=== PATIENT | female | born 1935 | race Caucasian/White ===

== ENCOUNTER 2016-07-07 18:54 | Inpatient (IN) | payer MEDICARE, OTHER ==
[~2016-07-07] VITALS: Ht 157.5 cm; Wt 74.0 kg
[~2016-07-07 18:54] MED LIST: /ADVA50050 IN; /TIOT18INH INH; ACET65TA OR; ALBU17IN INH; ALBU83IN IN; ALBUPOW25 INH; ALEVE PO; ASPI1TAB PO; ASPI325T PO; ASPI81TA85 PO; BISA10EN PR; CEFT500T OR; CEFT500T3 PO; DOCU10CA PO; DOCU10ELUD PO; DRIS50002 PO; Deltasone PO; Drisdol PO; Duoneb INH; FERR325T PO; FURO40TA2 PO; HEPA10004 SQ; HYDR25TA6 OR; HYDR25TA6 PO; Heparin SQ; IPRASOL4 INH; KETO2CR EXT; LASI20TA OR; LASI40TA OR; LASI40TA PO; LEVA500T OR; LEVA750T PO; LEVO100T7 OR; LEVO50TA2 OR; LEVO75TA4 PO; LISI10TA4 OR; MIRA3350 PO; MIRALEX PO; NICO2GUM8 PO; NICO7DIS23 TD; NORCO ANEXSIA PO; NORV5TAB OR; OMEP40CA2 PO; OXYGEN; PERC5TAB6 PO; PRED10TA PO; PRED10TA2 OR; PRED20TA OR; PRED20TA PO; PRED5TAB OR; PRIL40CA OR; PRIL40CA PO; PRIN10TA OR; PRIN10TA PO; SYMB; SYMB16INH INH; SYMB80AE IN; SYNT50TA OR; SYNT50TA PO; TESS100C OR; TYLE325T5 PO; VENTAER IN; VENTAER INH; VITA-121 PO; VITA-130 PO; VITAMIN D2 PO; XANA0.25 OR; ZEST10TA OR; ZITH250T OR; ZOLO100T OR; ZOLO100T PO; [UNRECOGNIZED DRUG - OTHER]; [UNRECOGNIZED DRUG - OTHER] INH; [UNRECOGNIZED DRUG - OTHER] OR; prednison; prednisone OR; symbicort INH
[2016-07-07] MEDS ORDERED: FUROSEMIDE 40 MG/4 ML VIAL (J1940) As Ordered ONE (19:19)
[2016-07-07] MEDS ORDERED: methylPREDNISolone INJ 125 MG/2 ML VIAL (J2930) As Ordered ONE (19:19)
[2016-07-07] MEDS ORDERED: IPRATROPIUM 0.5MG/ALBUTEROL 2.5MG INH SOL UD 3ML (DUONEB)(J7620) As Ordered ONE (19:22)
[2016-07-07 19:35] LABS: ABG BASE EXCESS 16.9 (-2.0-2.0); ABG DEVICE NASAL CANN; ABG HCO3 44.6 MEQ/L (22.0-26.0); ABG PARTIAL PRESSURE CO2 78.6 mmHg (35.0-45.0); ABG PARTIAL PRESSURE O2 64.4 mmHg (75.0-100.0); ABG STANDARD HCO3 40.6 MEQ/L (22.0-26.0); ABG pH (ARTERIAL) 7.372 UNITS (7.350-7.450)
[2016-07-07 19:38] LABS: ADD MORPHOLOGY? YES; BASO % 0.3 % (0.0-1.0); EOS # 0.4 K/mm3 (0.0-0.50); EOS % 5.6 % (0.0-3.0); LARGE UNSTAINED CELL # 0.2 K/mm3 (0.0-0.4); LYMPH # 1.2 K/mm3 (1.5-4.5); LYMPH % 15.1 % (24.0-44.0); MEAN CORPUSCULAR HEMOGLOBIN 19.9 pg (27.0-33.0); MEAN CORPUSCULAR HGB CONC 27.5 g/dl (32.0-36.5); MEAN CORPUSCULAR VOLUME 72.3 fl (80.0-96.0); MONO # 0.3 K/mm3 (0.0-0.8); MONO % 4.4 % (0.0-5.0); NEUTROPHILS # 5.7 K/mm3 (1.8-7.7); NEUTROPHILS % 72.7 % (36.0-66.0); PLATELET COUNT, AUTOMATED 217 k/mm3 (150-450); RED CELL DISTRIBUTION WIDTH 16.5 % (11.5-14.5); WHITE BLOOD COUNT 7.9 K/mm3 (4.0-10.0)
[2016-07-07] MEDS ORDERED: cefTRIAXone SOD 1 GM VIAL (J0696) As Ordered ONE (19:48)
[2016-07-07] MEDS ORDERED: MOM 30ML SUSPENSION UDC PO PRN (20:00)
[2016-07-07] MEDS: IPRATROPIUM 0.02% SOLN 0.5MG/2.5 ML NEB INH SCH ×2 (20:00→23:21)
[2016-07-07] MEDS ORDERED: IPRATROPIUM 0.02% SOLN 0.5MG/2.5 ML NEB INH PRN (20:00)
[2016-07-07] MEDS ORDERED: LEVALBUTEROL 1.25 MG/0.5 ML CONCENTRATE NEB INH PRN (20:00)
[2016-07-07] MEDS ORDERED: MIRALAX *UNIT DOSE* 17GM PACKET PO PRN (20:00)
[2016-07-07] MEDS: LEVALBUTEROL 1.25 MG/0.5 ML CONCENTRATE NEB INH SCH ×2 (20:00→23:21)
[2016-07-07] MEDS ORDERED: methylPREDNISolone INJ 125 MG/2 ML VIAL (J2930) IV ONE (20:00)
[2016-07-07 20:05] LABS: ANION GAP 6 MEQ/L (8-16); BLOOD UREA NITROGEN 21 MG/DL (7-18); CALCIUM LEVEL 8.2 MG/DL (8.8-10.2); CARBON DIOXIDE LEVEL 43 MEQ/L (21-32); CHLORIDE LEVEL 88 MEQ/L (98-107); CREATININE FOR GFR 0.74 MG/DL (0.55-1.02); GLOMERULAR FILTRATION RATE > 60.0 (>32); GLUCOSE, FASTING 106 MG/DL (83-110); POTASSIUM SERUM 4.1 MEQ/L (3.5-5.1); SODIUM LEVEL 137 MEQ/L (136-145)
[2016-07-07 20:07] LABS: ANISOCYTOSIS 1+; HYPOCHROMASIA 3+; MICROCYTOSIS 2+
[2016-07-07 20:30] LABS: FERRITIN 5 NG/ML (8-252); PERCENT SATURATION 4.3 % (13.2-37.4); TOTAL IRON BINDING CAPACITY 530 UG/DL (250-450)
[2016-07-07] MEDS ORDERED: AZITHROMYCIN INJ 500MG VIAL (J0456) As Ordered ONE (20:36)
[2016-07-07 20:51] LABS: RETIC HEMOGLOBIN CONTENT CHr 20.3 PG (24-36); RETICULOCYTE ABSOLUTE ADVIA212 58 x10(9)/L (17-77)
[2016-07-07] MEDS: DOCUSATE SODIUM 100 MG CAP PO SCH (21:00)
[2016-07-07] MEDS: SYMBICORT 160/4.5MCG INHALER 6GM INH SCH (21:00)
--- NOTE | 2016-07-07 21:12 | EDDOCDS ---
Physician Documentation [facility] Name: Pia Pinzon Age: 80 yrs Sex: Female : 1935 Arrival Date: 07/07/2016 Time: 18:54 Bed 4 Private MD: Michael Galan M.D. Disposition: 07/07/16 19:45 Hospitalization ordered by Michael Galan for Inpatient Admission. Preliminary diagnosis is Pneumonia, unspecified organism. - Bed requested for M ICU. - Status is Inpatient Admission. ttb - Condition is Stable. - Problem is new. - Symptoms are unchanged. Historical: - Allergies: bupropion HCl; KEITH Inhibitors; - Home Meds: 1. furosemide 40 mg Oral tab 1 tab once daily (Last dose: 07/07/2016 09:00) 2. omeprazole 40 mg Oral cpDR 1 cap once daily (Last dose: 07/07/2016 09:00) 3. Oxygen 3 Litres daily 4. levothyroxine 75 mcg Oral tab 1 tab once daily (Last dose: 07/07/2016 09:00) 5. prednisone 10 mg Oral tab once daily (Last dose: 07/07/2016 09:00) 6. ipratropium-albuterol 0.5 mg-3 mg(2.5 mg base)/3 mL Inhl nebu 3 mL 4 times per day (Last dose: 07/07/2016 19:00) 7. Symbicort inhalation 2 puffs 2 times per day 8. Vitamin D Oral 97997 unit weekly - PMHx: COPD; Hypertension; Hypothyroidism; - Family history: Not pertinent. - Social history: Smoking status: Patient uses tobacco products, current every day smoker. No barriers to communication noted, The patient speaks fluent Uruguayan, Speaks appropriately for age. - : The pt / caregiver states he / she is not on anticoagulants. Home medication list is obtained from the patient. - Exposure Risk Screening:: None identified. - Code Status:: pt states DNR : although does not have it in writing. . - Advance directive:: Yes. Vital Signs: 07/07 19:08 BP 145 / 69; Pulse 104; Resp 32; Temp 98.2; Pulse Ox 94% on 4 lpm NC; Weight 65.77 kg / ttb 145 lbs (R); Height 5 ft. 2 in. (157.48 cm); Pain 0/10; 19:37 BP 143 / 61 (auto/); ttb 19:38 Pulse 90 MON; Pulse Ox 100% ; ttb 19:59 BP 130 / 60 (auto/); ttb 20:00 Pulse 96 MON; Pulse Ox 87% ; ttb 20:12 Pulse 98 MON; Resp 32; Temp 97.7; Pulse Ox 88% on 4 lpm NC; Pain 2/10; ttb 20:20 Pulse 110 MON; ttb 20:30 Pulse 100 MON; Pulse Ox 93% ; ttb 20:45 Pulse 96 MON; Pulse Ox 90% ; ttb 21:00 Pulse 102 MON; Pulse Ox 90% ; ttb 21:06 Pulse 96 MON; Resp 30; Temp 97.7(O); Pulse Ox 90% on 4 lpm NC; Pain 0/10; ttb 21:06 BP 121 / 56; ttb 19:08 Body Mass Index 26.52 (65.77 kg, 157.48 cm) ttb MDM: 19:06 Furosemide 80 mg IVP once ordered. ke 19:06 Solu-MEDROL 125 mg IVP once ordered. ke 19:06 -Blood Culture (Adults Only), peripheral from different site, or from device/port/PICC ke etc. if present ordered. 19:06 Database Marketing Analyst/Pulse Ox/q 15 min VS ordered. ke 19:06 IV Saline Lock ordered. ke 19:06 Oxygen at 4L/Min NC or Home dosage ordered. ke 19:06 Rhythm Strip to chart ordered. ke 19:06 Albuterol-Ipratropium 1 neb Nebulizer every 20 minutes x3 ordered. ke 19:06 Call Respiratory ordered. ke 19:08 -Arterial Blood Gas Ordered. EDMS 19:08 B-Type Natiuretic Peptide Ordered. EDMS 19:08 Basic Metabolic Profile Ordered. EDMS 19:08 CBC with Diff Ordered. EDMS 19:08 Cardiac Injury Profile Ordered. EDMS 19:08 Troponin Ordered. EDMS 19:08 -Blood Culture Ordered. EDMS 19:08 Chest, 1 View Ordered. EDMS 19:08 ECG WITH READING ER PHYS+CARDIAG ordered. EDMS 19:08 Call Respiratory complete. jmb 19:12 Lactic Acid (Oro tube on ice) Ordered. EDMS 19:15 -Blood Culture (Adults Only), peripheral from different site, or from device/port/PICC jlm etc. if present complete. 19:15 BLOOD CULTURES Ordered. EDMS 19:39 RBC MORPH PROF NO CHARGE Ordered. EDMS 19:41 cefTRIAXone 1 grams IVPB once over 30 mins; dilute in 50mL of NS or D5W ordered. ke 19:41 azithromycin 500 mg IVPB once over 1 hrs; dilute in 250mL of D5W or NS ordered. ke 19:44 BED REQUEST+ADM ordered. EDMS 19:48 LEGIONELLA ANTIGEN URINE Ordered. EDMS 19:48 URINE STREP PNEUMONIAE ANTIGEN Ordered. EDMS 19:48 CBC WITH DIFFERENTIAL Ordered. EDMS 19:49 BASIC METABOLIC PROFILE Ordered. EDMS 19:49 INFLUENZA A&B RAPID ANTIGEN Ordered. EDMS 19:49 SPUTUM CULTURE AND GRAM STAIN Ordered. EDMS 19:49 PHYSICAL THERAPY EVAL & TREAT ordered. EDMS 19:50 Admission / Observation Status ordered. EDMS 19:50 Admission / Observation Status ordered. EDMS 19:51 ARTERIAL BLOOD GAS Ordered. EDMS 19:53 RESPIRATORY PANEL Ordered. EDMS 19:53 MRSA SCREEN Ordered. EDMS 19:55 COPD DIET ordered. EDMS 19:56 CARDIAC MARKER PANEL Ordered. EDMS 20:32 Financial registration complete. [id number] 20:33 [facility] Payment Agreement was scanned into [employer] and attached to record. [email or web address] 21:05 CARDIAC MARKER PANEL Ordered. EDMS Administered Medications: 19:25 Drug: Furosemide 80 mg [furosemide 10 mg/mL injection solution (8 mL)] Route: IVP; tm5 Site: left antecubital; 20:00 Follow up: Response: No Adverse Reaction ttb 19:25 Drug: Solu-MEDROL 125 mg [Solu-Medrol 500 mg intravenous solution (125 mg)] Route: IVP; tm5 Site: left antecubital; 20:00 Follow up: Response: No Adverse Reaction ttb 19:30 Drug: Albuterol-Ipratropium 1 neb [ipratropium-albuterol 0.5 mg-3 mg(2.5 mg base)/3 mL jc3 nebulization soln (1 neb)] Route: Nebulizer; 19:38 Drug: Albuterol-Ipratropium 1 neb [ipratropium-albuterol 0.5 mg-3 mg(2.5 mg base)/3 mL jc3 nebulization soln (1 neb)] Route: Nebulizer; 19:46 Drug: Albuterol-Ipratropium 1 neb [ipratropium-albuterol 0.5 mg-3 mg(2.5 mg base)/3 mL jc3 nebulization soln (1 neb)] Route: Nebulizer; 20:00 Drug: cefTRIAXone 1 grams [ceftriaxone 1 gram solution for injection] Route: IVPB; tm5 Infused Over: 30 mins; Site: left antecubital; 20:44 Follow up: Response: No Adverse Reaction; IV Status: Completed infusion ttb 20:44 Drug: NS 0.9% 250 ml, azithromycin 500 mg Route: IVPB; Infused Over: 1 hrs; Site: left ttb antecubital; Delivery: Pump; 21:11 Follow up: IV Status: Infusion continued upon admit ttb Signatures: Dispatcher [employer] EDGeovany Lisa, SURVEY MANAGER SURVEY MANAGER Vale Gonzalez RN RN [id number] Arcelia Barnard RN RN ttb Geronimo Boyle,RN RN Eda Watson, Varnishing Machine Operator Unit [facility] Tracey Harrison, Reg Reg ks16 Boubacar Thomas jc3 Tabitha Lopez RN tm5 The chart was reviewed and I authenticate all verbal orders and agree with the evaluation and treatment provided.Corrections: (The following items were deleted from the chart) 20:07 19:56 LACTIC ACID LEVEL, LACTATE ordered. EDMS EDMS 20:18 19:56 LACTIC ACID LEVEL, LACTATE ordered. EDMS EDMS 20:20 19:58 IRON (FE) ordered. EDMS EDMS 20:20 19:59 TOTAL IRON BINDING CAPACIT ordered. EDMS EDMS 20:20 19:59 RETICULOCYTE COUNT ordered. EDMS EDMS 20:21 19:59 FERRITIN ordered. EDMS EDMS 21:03 19:56 CARDIAC MARKER PANEL ordered. EDMS EDMS Attachments: 20:33 [facility] [place] [email or web address] MTDD
--- NOTE | 2016-07-07 21:12 | EDDOCDS ---
Nurse's Notes [facility] Name: Pia Pinzon Age: 80 yrs Sex: Female : 1935 Arrival Date: 07/07/2016 Time: 18:54 Bed 4 Private MD: Michael Galan M.D. Diagnosis: Pneumonia, unspecified organism Presentation: 07/07 18:58 Presenting complaint: Presenting complaint: EMS states: SOB since this evening. ttb Improved in route per EMS. Pt labored upon entering ER. 19:04 Adult Sepsis Screening: The patient does not have new or worsening altered mentation. ttb Patient has a respiratory rate of greater than or equal to 22 (1 point). Systolic blood pressure is greater than 100. Patient has a qSOFA score of 1- Negative Sepsis Screen. Suicide/Homicide risk assessment- the patient denies having any suicidal and/or homicidal ideations and does not present with any other emotional, behavioral or mental health complaints. Status: Patient is not a car servicer or dependent. Transition of care: patient was not received from another setting of care. 19:04 Acuity: DIANA Level 2 ttb 19:04 Method Of Arrival: Ambulance ttb Triage Assessment: 19:09 General: Appears distressed, ill, well nourished, Behavior is anxious, appropriate for ttb age, uncooperative. Pain: Denies pain. Neurological: Level of Consciousness is awake, alert. Cardiovascular: Rhythm is irregular Chest pain is denied. Respiratory: Onset: The symptoms/episode began/occurred gradually, Airway is patent Respiratory effort is even, labored, shallow, Respiratory pattern is regular, tachypnea Reports shortness of breath at rest on exertion since this evening the patient has moderate shortness of breath. GI: Denies nausea, vomiting. Derm: Skin is normal. Injury Description: No known injury. Historical: - Allergies: bupropion HCl; KEITH Inhibitors; - Home Meds: 1. furosemide 40 mg Oral tab 1 tab once daily (Last dose: 07/07/2016 09:00) 2. omeprazole 40 mg Oral cpDR 1 cap once daily (Last dose: 07/07/2016 09:00) 3. Oxygen 3 Litres daily 4. levothyroxine 75 mcg Oral tab 1 tab once daily (Last dose: 07/07/2016 09:00) 5. prednisone 10 mg Oral tab once daily (Last dose: 07/07/2016 09:00) 6. ipratropium-albuterol 0.5 mg-3 mg(2.5 mg base)/3 mL Inhl nebu 3 mL 4 times per day (Last dose: 07/07/2016 19:00) 7. Symbicort inhalation 2 puffs 2 times per day 8. Vitamin D Oral 29429 unit weekly - PMHx: COPD; Hypertension; Hypothyroidism; - Family history: Not pertinent. - Social history: Smoking status: Patient uses tobacco products, current every day smoker. No barriers to communication noted, The patient speaks fluent Kiswahili, Speaks appropriately for age. - : The pt / caregiver states he / she is not on anticoagulants. Home medication list is obtained from the patient. - Exposure Risk Screening:: None identified. - Code Status:: pt states DNR : although does not have it in writing. . - Advance directive:: Yes. Screenin:31 Screening information is obtained from the patient. Fall risk: At risk due to age, The ttb following interventions are performed due to a positive Fall Risk Screen: Fall Risk is added to Special Handling on the patient Summary Screen. A Fall Risk Bracelet was applied to the patient. Side Rails are placed in the up position. A Call Esposito is given with instruction to call for help when getting out of bed. Assistance ADL's: requires no assistance with activities of daily living. Abuse/DV Screen: The patient / caregiver reports he/she is: not in a situation that causes fear, pain or injury. Nutritional screening: No deficits noted. 20:12 home support is adequate. ttb 20:53 Advance Directives: Currently, there is a health care proxy, Son (Nirav Blair ttb [phone]) Called at 2100 -- no response at this time Pt also gave # [phone] --no answer. Assessment: 20:00 General: Appears distressed, ill, well nourished, Behavior is anxious, restless, ttb uncooperative. 20:00 Neurological: Level of Consciousness is awake, alert. Cardiovascular: 3+ pitting to ttb LE's. Rhythm is irregular Chest pain is denied. Respiratory: Airway is patent Respiratory effort is even, labored, shallow, Respiratory pattern is regular, symmetrical, tachypnea Breath sounds with wheezes bilaterally. Reports shortness of breath cough that is labored breathing pain with respiration the patient has moderate shortness of breath. GI: Denies nausea, vomiting, pain. Derm: Skin is normal. 20:30 General: ICU contacted to give report. Unable to take report at this time. . ttb 20:50 General: ICU contacted to give report. RN unavailable at this time. Pt continues to ttb rest on stretcher. Resps remain labored, but pt able to answer questions appropriately. Sat 92% on 4L. . 20:50 Neurological: Level of Consciousness is awake, alert, Speech is normal. Cardiovascular: ttb Chest pain is denied. Respiratory: Airway is patent Respiratory effort is even, labored, shallow, Respiratory pattern is regular, symmetrical, tachypnea the patient has moderate shortness of breath. 21:05 Reassessment: pt condition slightly improved since arrival. Pt anxious to get to unit. ttb Report given to AGUILAR Tang on ICU at this time. . Vital Signs: 19:08 BP 145 / 69; Pulse 104; Resp 32; Temp 98.2; Pulse Ox 94% on 4 lpm NC; Weight 65.77 kg ttb (R); Height 5 ft. 2 in. (157.48 cm); Pain 0/10; 19:37 BP 143 / 61 (auto/); ttb 19:38 Pulse 90 MON; Pulse Ox 100% ; ttb 19:59 BP 130 / 60 (auto/); ttb 20:00 Pulse 96 MON; Pulse Ox 87% ; ttb 20:12 Pulse 98 MON; Resp 32; Temp 97.7; Pulse Ox 88% on 4 lpm NC; Pain 2/10; ttb 20:20 Pulse 110 MON; ttb 20:30 Pulse 100 MON; Pulse Ox 93% ; ttb 20:45 Pulse 96 MON; Pulse Ox 90% ; ttb 21:00 Pulse 102 MON; Pulse Ox 90% ; ttb 21:06 Pulse 96 MON; Resp 30; Temp 97.7(O); Pulse Ox 90% on 4 lpm NC; Pain 0/10; ttb 21:06 BP 121 / 56; ttb 19:08 Body Mass Index 26.52 (65.77 kg, 157.48 cm) ttb Vitals: 19:08 Log In Time N/A - ambulance arrival. ttb ED Course: 18:55 Patient visited by Claire Velasco, Pallet Assembler. deg 18:55 Patient moved to 4 deg 18:56 Michael Galan is Private Physician. deg 19:05 Geovany Raya FNP [facility]. ke 19:05 Patient visited by Geovany Raya FNP. ke 19:05 Patient visited by Geovany Raya FNP. ke 19:05 Triage Initiated ttb 19:10 Patient visited by Arcelia Barnard RN. ttb 19:22 Pt greeted and oriented to ED. Patient advised of names of staff involved in care, jmv location of call esposito, wait times and NPO status. Patient has correct armband on for positive identification. Placed in gown. Bed in low position. Call light in reach. Side rails up X2. newspaper columnist on. Pulse ox on. NIBP on. 19:22 EKG done. (by ED staff). Reviewed by Geovany DONOVAN. jmv 19:23 Patient visited by Drake Pearson PCA. jmv 19:30 -Arterial Blood Gas Sent. jc3 19:30 Lactic Acid (Oro tube on ice) Sent. ttb 19:30 -Blood Culture Sent. ttb 19:30 B-Type Natiuretic Peptide Sent. ttb 19:30 Basic Metabolic Profile Sent. ttb 19:30 CBC with Diff Sent. ttb 19:30 Cardiac Injury Profile Sent. ttb 19:30 Troponin Sent. ttb 19:30 Inserted peripheral IV: 20gauge IV in left antecubital area and blood collected. ttb Patient tolerated the procedure well. Labs drawn. (by ED staff). O2 via nasal cannula \T\ 4L/min. 19:31 The patient / caregiver is instructed regarding the plan of care and ED course. Patient ttb has correct armband on for positive identification. newspaper columnist on. Pulse ox on. NIBP on. 19:44 Michael Galan is Hospitalizing Provider. ke 20:33 [facility] Payment Agreement was scanned into [employer] and attached to record. [id number] 21:06 No procedures done that require assistance. ttb Administered Medications: 19:25 Drug: Furosemide 80 mg [furosemide 10 mg/mL injection solution (8 mL)] Route: IVP; tm5 Site: left antecubital; 20:00 Follow up: Response: No Adverse Reaction ttb 19:25 Drug: Solu-MEDROL 125 mg [Solu-Medrol 500 mg intravenous solution (125 mg)] Route: IVP; tm5 Site: left antecubital; 20:00 Follow up: Response: No Adverse Reaction ttb 19:30 Drug: Albuterol-Ipratropium 1 neb [ipratropium-albuterol 0.5 mg-3 mg(2.5 mg base)/3 mL jc3 nebulization soln (1 neb)] Route: Nebulizer; 19:38 Drug: Albuterol-Ipratropium 1 neb [ipratropium-albuterol 0.5 mg-3 mg(2.5 mg base)/3 mL jc3 nebulization soln (1 neb)] Route: Nebulizer; 19:46 Drug: Albuterol-Ipratropium 1 neb [ipratropium-albuterol 0.5 mg-3 mg(2.5 mg base)/3 mL jc3 nebulization soln (1 neb)] Route: Nebulizer; 20:00 Drug: cefTRIAXone 1 grams [ceftriaxone 1 gram solution for injection] Route: IVPB; tm5 Infused Over: 30 mins; Site: left antecubital; 20:44 Follow up: Response: No Adverse Reaction; IV Status: Completed infusion ttb 20:44 Drug: NS 0.9% 250 ml, azithromycin 500 mg Route: IVPB; Infused Over: 1 hrs; Site: left ttb antecubital; Delivery: Pump; 21:11 Follow up: IV Status: Infusion continued upon admit ttb RT: 19:30 ABG's drawn from right radial artery pressure held for 5 minutes no bleeding noted jc3 pressure bandage applied specimen sent pt. tolerated well. Initial Med Neb Given as ordered. O2 via nasal cannula \T\ 4L/min. Respiratory: Breath sounds are coarse bilaterally. Breath sounds are diminished bilaterally. Breath sounds with wheezes bilaterally. at expiration. 19:40 Subsequent Med Neb Given as ordered. jc3 19:46 Subsequent Med Neb Given as ordered. Respiratory: Breath sounds are diminished jc3 bilaterally. Breath sounds with wheezes bilaterally. at expiration. Order Results: Lab Order: -Arterial Blood Gas; SPEC'M 07/07/16 19:24 Test: ABG pH (ARTERIAL); Value: 7.372; Range: 7.350-7.450; Units: UNITS; Status: F Test: ABG PARTIAL PRESSURE CO2; Value: 78.6; Range: 35.0-45.0; Abnormal: Above upper panic limits; Units: mmHg; Status: F Test: ABG PARTIAL PRESSURE O2; Value: 64.4; Range: 75.0-100.0; Abnormal: Below low normal; Units: mmHg; Status: F Test: ABG TOTAL CO2; Value: 47.0; Range: 23.0-31.0; Abnormal: Above high normal; Units: MEQ/L; Status: F Test: ABG HCO3; Value: 44.6; Range: 22.0-26.0; Abnormal: Above high normal; Units: MEQ/L; Status: F Test: ABG BASE EXCESS; Value: 16.9; Range: -2.0-2.0; Abnormal: Above high normal; Status: F Test: ABG STANDARD HCO3; Value: 40.6; Range: 22.0-26.0; Abnormal: Above high normal; Units: MEQ/L; Status: F Test: ABG O2 SATURATION; Value: 92.3; Range: 95.0-99.0; Abnormal: Below low normal; Units: %; Status: F Test: ABG DEVICE; Value: NASAL RITESH; Status: F Lab Order: B-Type Natiuretic Peptide; SPEC' 07/07/16 19:26 Test: BRAIN NATRIURETIC PEPTIDE; Value: 282; Range: <100; Abnormal: Above high normal; Units: PG/ML; Status: F Lab Order: Basic Metabolic Profile; SPEC' 07/07/16 19:26 Test: GLUCOSE, FASTING; Value: 106; Range: 83-110; Units: MG/DL; Status: F Test: BLOOD UREA NITROGEN; Value: 21; Range: 7-18; Abnormal: Above high normal; Units: MG/DL; Status: F Test: CREATININE FOR GFR; Value: 0.74; Range: 0.55-1.02; Units: MG/DL; Status: F Test: GLOMERULAR FILTRATION RATE; Value: > 60.0; Range: >32; Status: F Test: SODIUM LEVEL; Value: 137; Range: 136-145; Units: MEQ/L; Status: F Test: POTASSIUM SERUM; Value: 4.1; Range: 3.5-5.1; Units: MEQ/L; Status: F Test: CHLORIDE LEVEL; Value: 88; Range: 98-107; Abnormal: Below low normal; Units: MEQ/L; Status: F Test: CARBON DIOXIDE LEVEL; Value: 43; Range: 21-32; Abnormal: Above high normal; Units: MEQ/L; Status: F Test: ANION GAP; Value: 6; Range: 8-16; Abnormal: Below low normal; Units: MEQ/L; Status: F Test: CALCIUM LEVEL; Value: 8.2; Range: 8.8-10.2; Abnormal: Below low normal; Units: MG/DL; Status: F Test Note: ; Units are mL/min/1.73 m2 Chronic Kidney Disease Staging per NKF: Stage I & II GFR >=60 Normal to Mildly Decreased Stage III GFR 30-59 Moderately Decreased Stage IV GFR 15-29 Severely Decreased Stage V GFR <15 Very Little GFR Left ESRD GFR <15 on HORIZONTAL RESAW OPERATOR Lab Order: CBC with Diff; SPEC'M 07/07/16 19:26 Test: WHITE BLOOD COUNT; Value: 7.9; Range: 4.0-10.0; Units: K/mm3; Status: F Test: RED BLOOD COUNT; Value: 4.13; Range: 4.00-5.40; Units: M/mm3; Status: F Test: HEMOGLOBIN; Value: 8.2; Range: 12.0-16.0; Abnormal: Below low normal; Units: g/dl; Status: F Test: HEMATOCRIT; Value: 29.8; Range: 36.0-47.0; Abnormal: Below low normal; Units: %; Status: F Test: MEAN CORPUSCULAR VOLUME; Value: 72.3; Range: 80.0-96.0; Abnormal: Below low normal; Units: fl; Status: F Test: MEAN CORPUSCULAR HEMOGLOBIN; Value: 19.9; Range: 27.0-33.0; Abnormal: Below low normal; Units: pg; Status: F Test: MEAN CORPUSCULAR HGB CONC; Value: 27.5; Range: 32.0-36.5; Abnormal: Below low normal; Units: g/dl; Status: F Test: RED CELL DISTRIBUTION WIDTH; Value: 16.5; Range: 11.5-14.5; Abnormal: Above high normal; Units: %; Status: F Test: PLATELET COUNT, AUTOMATED; Value: 217; Range: 150-450; Units: k/mm3; Status: F Test: NEUTROPHILS %; Value: 72.7; Range: 36.0-66.0; Abnormal: Above high normal; Units: %; Status: F Test: LYMPH %; Value: 15.1; Range: 24.0-44.0; Abnormal: Below low normal; Units: %; Status: F Test: MONO %; Value: 4.4; Range: 0.0-5.0; Units: %; Status: F Test: EOS %; Value: 5.6; Range: 0.0-3.0; Abnormal: Above high normal; Units: %; Status: F Test: BASO %; Value: 0.3; Range: 0.0-1.0; Units: %; Status: F Test: LARGE UNSTAINED CELL %; Value: 2.0; Range: 0.0-4.0; Units: %; Status: F Test: NEUTROPHILS #; Value: 5.7; Range: 1.8-7.7; Units: K/mm3; Status: F Test: LYMPH #; Value: 1.2; Range: 1.5-4.5; Abnormal: Below low normal; Units: K/mm3; Status: F Test: MONO #; Value: 0.3; Range: 0.0-0.8; Units: K/mm3; Status: F Test: EOS #; Value: 0.4; Range: 0.0-0.50; Units: K/mm3; Status: F Test: BASO #; Value: 0.0; Range: 0.0-0.2; Units: K/mm3; Status: F Test: LARGE UNSTAINED CELL #; Value: 0.2; Range: 0.0-0.4; Units: K/mm3; Status: F Lab Order: Cardiac Injury Profile; SPEC'M 07/07/16 19:26 Test: CPK CREATINE PHOSPHOKINASE; Value: 71; Range: 26-192; Units: U/L; Status: F Test: CK-MB VALUE MASS; Value: 1.9; Range: 0.0-3.6; Units: NG/ML; Status: F Test: MB/CK RELATIVE INDEX; Value: 2.67; Range: < OR =4; Status: F Test Note: ; DIAGNOSIS CRITERIA MMB ng/ml Relative Index (RI) NON-AMI < or = 5 N/A ORO ZONE > 5 < or = 4 AMI > 5 > 4 Lab Order: Troponin; [facility] 07/07/16: Test: TROPONIN I; Value: < 0.02; Range: < 0.10; Units: NG/ML; Status: F Test Note: ; Troponin I Reference Interval for [employer] LOCI: 99th Percentile= 0.00-0.045 ng/ml Risk Stratification: <= 0.10 ng/ml Decreased Risk for Adverse Clinical Events. 0.10-1.50 ng/ml Increased Risk for Adverse Clinical Events. Evaluation of additional criterion and/or repeat testing in 2-6 hours is suggested to rule out myocardial damage. >= 1.50 ng/ml Indicative of Myocardial Injury. Lab Order: Lactic Acid (Oro tube on ice); [facility] 07/07/16: Test: LACTIC ACID SEPSIS PROTOCOL; Value: 0.8; Range: 0.4-2.0; Units: MMOL/L; Status: F Lab Order: RBC MORPH PROF NO CHARGE; [facility] 07/07/16: Test: PLATELET ESTIMATE; Range: NORMAL; Status: I Test: HYPOCHROMASIA; Value: 3+; Status: F Test: ANISOCYTOSIS; Value: 1+; Status: F Test: MICROCYTOSIS; Value: 2+; Status: F Test: PLATELET ESTIMATE; Value: NORMAL; Range: NORMAL; Status: F Lab Order: RETICULOCYTE COUNT; [facility] 07/07/16: Test: RETICULOCYTE % [id number]; Value: 1.40; Range: 0.5-1.5; Units: %; Status: F Test: RETICULOCYTE ABSOLUTE [id number]; Value: 58; Range: 17-77; Units: x10(9)/L; Status: F Test: RETIC HEMOGLOBIN CONTENT CHr; Value: 20.3; Range: 24-36; Abnormal: Below low normal; Units: PG; Status: F Lab Order: TOTAL IRON BINDING CAPACIT; [facility] 07/07/16: Test: IRON (FE); Value: 23; Range: 50-170; Abnormal: Below low normal; Units: UG/DL; Status: F Test: TOTAL IRON BINDING CAPACITY; Value: 530; Range: 250-450; Abnormal: Above high normal; Units: UG/DL; Status: F Test: PERCENT SATURATION; Value: 4.3; Range: 13.2-37.4; Abnormal: Below low normal; Units: %; Status: F Lab Order: FERRITIN; SPEC'M 07/07/16 19:26 Test: FERRITIN; Value: 5; Range: 8-252; Abnormal: Below low normal; Units: NG/ML; Status: F Outcome: 19:45 Decision to Hospitalize by Provider. ke 20:55 Discharge Assessment: patient administered narcotics - no. The following High Risk ttb Discharge criteria are identified: Yes, ICU admit. Admitted to ICU accompanied by nurse, accompanied by tech, via stretcher, with oxygen, on monitor, with chart. Condition: stable critical. Instructed on admission process. No special radiology studies were completed. Property :Personal belongings accompany Pt. 21:06 Admission hand-off: Report called to AGUILAR Tang on ICU given verbal report. ttb 21:11 Patient left the ED. ttb Signatures: Claire Velasco, Pallet Assembler Unit deg Geovany Raya, PLYWOOD SCARFER TENDER PLYWOOD SCARFER TENDER Boubacar Trejo jc3 Arcelia Barnard, RN RN ttb Tracey Harrison, Reg Reg ks16 Drake Pearson, ELECTRICAL SUBCONTRACTOR ELECTRICAL SUBCONTRACTOR amilcarv Tabitha Lopez,RN RN tm5 Corrections: (The following items were deleted from the chart) 19:05 18:58 Presenting complaint: ttb ttb 21:03 20:53 Advance Directives: Currently, there is a health care proxy, Son : Nirav Blair ttb [phone]. ttb MTDD
[2016-07-07 21:31] VITALS: BP 119/59
[2016-07-07 22:00] VITALS: BP 105/51
[2016-07-07] MEDS ORDERED: FUROSEMIDE 20 MG/2 ML VIAL (J1940) IV ONE (22:15)
[2016-07-07] MEDS ORDERED: SLF 3 ML SYR IV PRN (22:30)
[2016-07-07 23:00] VITALS: BP 104/51
[2016-07-07] MEDS: methylPREDNISolone INJ 125 MG/2 ML VIAL (J2930) IV SCH (23:06)
[2016-07-07 23:56] LABS: ABG BASE EXCESS 17.4 (-2.0-2.0); ABG HCO3 46.2 MEQ/L (22.0-26.0); ABG PARTIAL PRESSURE O2 45.8 mmHg (75.0-100.0); ABG STANDARD HCO3 40.9 MEQ/L (22.0-26.0); ABG pH (ARTERIAL) 7.331 UNITS (7.350-7.450)
[2016-07-07 23:59] LABS: ABG PARTIAL PRESSURE CO2 89.5 mmHg (35.0-45.0)
[2016-07-08] VITALS (18 sets, daily range): BP systolic 93–135; BP diastolic 44–90
[2016-07-08] MEDS ORDERED: FUROSEMIDE 40 MG/4 ML VIAL (J1940) IV ONE (01:30)
--- NOTE | 2016-07-08 01:36 | IPNPDOC ---
Date Seen The patient was seen on 07/08/16. Progress Note SUBJECTIVE: Was called to evaluate the patient. She reports feeling better, but is still short of breath. OBJECTIVE PHYSICAL EXAMINATION: VITAL SIGNS: Please see below. GENERAL: NAD, is resting RESPIRATORY: Decreased respiratory sounds. Shallow breaths. Some crackles in the bases. ASSESSMENT AND PLAN: This is a 80 y/o female with pneumonia, SOB and hypercarbia. 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 We will start the patient on BIPAP. This was discussed with the hospitalist. We will also give her 40mg of Lasix. She has had a total output of approx 600cc since in the ICU. VS, I&O, 24H, Fishbone Vital Signs/I&O Vital Signs Date Time Temp Pulse Resp B/P Pulse Ox O2 Delivery O2 Flow Rate FiO2 07/07/16 22:00 98 105/51 94 Nasal Cannula 5.0 07/07/16 21:31 97.5 24 I&O- Last 24 Hours up to 6 AM 07/08/16 06:00 Intake Total 0 ml Output Total 650 ml Balance -650 ml Laboratory Data 24H LABS Laboratory Tests 2 07/07/16 19:24: Arterial Blood pH 7.372, Arterial Blood Partial Pressure CO2 78.6*H, Arterial Blood Partial Pressure O2 64.4L, Arterial Blood Total CO2 47.0H, Arterial Blood HCO3 44.6H, Arterial Blood Base Excess 16.9H, Arterial Blood Oxygen Saturation 92.3L, Blood Gas Bicarbonate Standard 40.6H, Oxygen Delivery Device NASAL RITESH 07/07/16 19:26: Absolute Reticulocyte Count 58, Anion Gap 6L, Anisocytosis 1+, B-Type Natriuretic Peptide 282H, White Blood Count 7.9, Red Blood Count 4.13, Hemoglobin 8.2L, Hematocrit 29.8L, Mean Corpuscular Volume 72.3L, Mean Corpuscular Hemoglobin 19.9L, Mean Corpuscular Hemoglobin Concent 27.5L, Red Cell Distribution Width 16.5H, Platelet Count 217, Neutrophils (%) (Auto) 72.7H , Lymphocytes (%) (Auto) 15.1L, Monocytes (%) (Auto) 4.4, Eosinophils (%) (Auto ) 5.6H, Basophils (%) (Auto) 0.3, Neutrophils # (Auto) 5.7, Lymphocytes # (Auto ) 1.2L, Monocytes # (Auto) 0.3, Eosinophils # (Auto) 0.4, Basophils # (Auto) 0.0 , Blood Urea Nitrogen 21H, Creatinine 0.74, Sodium Level 137, Potassium Level 4.1, Chloride Level 88L, Carbon Dioxide Level 43H, Calcium Level 8.2L, Total Creatine Kinase 71, Creatine Kinase MB 1.9, Creatine Kinase MB Relative Index 2.67, Ferritin 5L, Glomerular Filtration Rate > 60.0, Hypochromasia 3+, Iron Level 23L, Lactic Acid (Sepsis) 0.8, Large Unclassified Cells # 0.2, Large Unclassified Cells % 2.0, Microcytosis 2+, Percent Reticulocyte Count 1.40, Platelet Estimate NORMAL, Reticulocyte Hgb Content (CHr) 20.3L, Total Iron Binding Capacity 530H, Transferrin % Saturation 4.3L, Troponin I < 0.02 07/07/16 21:47: 07/07/16 23:17: Arterial Blood pH 7.331L, Arterial Blood Partial Pressure CO2 89.5*H, Arterial Blood Partial Pressure O2 45.8*L, Arterial Blood Total CO2 49.0H, Arterial Blood HCO3 46.2H, Arterial Blood Base Excess 17.4H, Arterial Blood Oxygen Saturation 78.4L, Blood Gas Bicarbonate Standard 40.9H, Arterial Blood Gas Puncture Site UNKNOWN 07/08/16 00:04: Creatine Kinase MB 2.8, Creatine Kinase MB Relative Index 4.05H, Total Creatine Kinase 69, Troponin I < 0.02 CBC/BMP Laboratory Tests 07/07/16 19:26 Calcium Level 8.2 L, Total Creatine Kinase 71, Red Blood Count 4.13, Mean Corpuscular Volume 72.3 L, Mean Corpuscular Hemoglobin 19.9 L, Mean Corpuscular Hemoglobin Concent 27.5 L, Red Cell Distribution Width 16.5 H, Neutrophils (%) ( Auto) 72.7 H, Lymphocytes (%) (Auto) 15.1 L, Monocytes (%) (Auto) 4.4, Eosinophils (%) (Auto) 5.6 H, Basophils (%) (Auto) 0.3, Neutrophils # (Auto) 5.7 , Lymphocytes # (Auto) 1.2 L, Monocytes # (Auto) 0.3, Eosinophils # (Auto) 0.4, Basophils # (Auto) 0.0 [facility] 07/07/16 Blood Culture, Received Pending 07/07/16 Blood Culture, Received Pending 07/07/16 MRSA Screen, Received Pending 07/07/16 Respiratory Virus Panel (PCR) ([facility]IN), Received Pending 07/07/16 Influenza Virus Type A Antigen - Final, Complete 07/07/16 Influenza Virus Type B Antigen - Final, Complete CHAZ KAN DO Jul 08, 2016 01:36 DEREK HARTMANN MD Jul 08, 2016 19:22
[2016-07-08 03:34] LABS: ABG BASE EXCESS 20.8 (-2.0-2.0); ABG DEVICE BIPAP; ABG HCO3 48.7 MEQ/L (22.0-26.0); ABG PARTIAL PRESSURE O2 91.1 mmHg (75.0-100.0); ABG STANDARD HCO3 44.9 MEQ/L (22.0-26.0); ABG TOTAL CO2 51.2 MEQ/L (23.0-31.0); ABG pH (ARTERIAL) 7.397 UNITS (7.350-7.450)
[2016-07-08] MEDS: LEVALBUTEROL 1.25 MG/0.5 ML CONCENTRATE NEB INH SCH ×6 (03:34→23:31)
[2016-07-08] MEDS: IPRATROPIUM 0.02% SOLN 0.5MG/2.5 ML NEB INH SCH ×6 (03:34→23:31)
[2016-07-08 06:32] LABS: BASO % 0.1 % (0.0-1.0); EOS % 0.2 % (0.0-3.0); LARGE UNSTAINED CELL % 0.1 % (0.0-4.0); LYMPH # 0.3 K/mm3 (1.5-4.5); LYMPH % 3.9 % (24.0-44.0); MEAN CORPUSCULAR HGB CONC 27.4 g/dl (32.0-36.5); MONO # 0.2 K/mm3 (0.0-0.8); MONO % 2.7 % (0.0-5.0); NEUTROPHILS # 5.8 K/mm3 (1.8-7.7); NEUTROPHILS % 92.9 % (36.0-66.0); PLATELET COUNT, AUTOMATED 225 k/mm3 (150-450); RED CELL DISTRIBUTION WIDTH 16.9 % (11.5-14.5); WHITE BLOOD COUNT 6.2 K/mm3 (4.0-10.0)
[2016-07-08] MEDS: SLF 3 ML SYR IV SCH ×3 (06:35→21:13)
[2016-07-08] MEDS: LEVOTHYROXINE 0.075 MG TAB (75 MCG) PO SCH (06:35)
--- NOTE | 2016-07-08 06:37 | ECGEPIP ---
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 RBBB SEPTAL MYOCARDIAL INFARCTION, OF INDETERMINATE AGE Electronically Signed On 07-08-2016 6:37:01 EST by Kushal Gomez
[2016-07-08 06:53] LABS: BLOOD UREA NITROGEN 22 MG/DL (7-18); CALCIUM LEVEL 8.6 MG/DL (8.8-10.2); CHLORIDE LEVEL 87 MEQ/L (98-107); CREATININE FOR GFR 0.83 MG/DL (0.55-1.02); GLOMERULAR FILTRATION RATE > 60.0 (>32); GLUCOSE, FASTING 145 MG/DL (83-110); SODIUM LEVEL 139 MEQ/L (136-145)
[2016-07-08 07:10] LABS: ANION GAP 6 MEQ/L (8-16); CARBON DIOXIDE LEVEL 46 MEQ/L (21-32)
--- NOTE | 2016-07-08 07:27 | REP ---
Clinical: Shortness of breath. Comparison: 11/17/2015. Findings: Perihilar and bibasilar infiltrates (right greater than left) cannot be excluded and may reflect scattered atelectasis. Mild pulmonary vascular congestion cannot be excluded as well. No pneumothorax. Mediastinum and cardiac silhouette are stable. Skeletal structures intact. Impression: Stable appearance of the mediastinum and cardiac silhouette. Cannot exclude pulmonary vascular congestion or bibasilar atelectasis/infiltrates (right greater than left). Signed by Nirav Felix MD 07/08/2016 07:18 A
--- NOTE | 2016-07-08 07:34 | HPE ---
DATE OF ADMISSION: 07/07/2016 PRIMARY CARE PHYSICIAN: Dr. Michael Galan ATTENDING PHYSICIAN: Dr. Bea Corona CHIEF COMPLAINT: Shortness of breath. HISTORY OF PRESENT ILLNESS: This is an 80-year-old female with a past medical history significant for chronic obstructive pulmonary disease (COPD), dependent on 3 liters of oxygen, hypertension, and hypothyroidism, who [facility] with complaints of shortness of breath. The patient says she was making supper earlier in the evening when she could not breathe. She used her medical alert device to call emergency medical services (EMS). They evaluated her at home and thought that she would be better evaluated in the emergency department and transferred her to [facility]. She had not tried any medication at home to relieve her shortness of breath. The patient has COPD, which has been managed by Dr. Barros, Pulmonology. She reports that her breathing is worse with activity. Can not walk the length of a room without feeling short of breath. She is typically on 3 liters of oxygen at all times. PAST MEDICAL HISTORY: COPD, on 3 liters of oxygen, hypertension, hypothyroidism. PAST SURGICAL HISTORY: Left lumpectomy HOME MEDICATIONS: - furosemide 40 mg daily - omeprazole 40 mg daily - Three liters of oxygen daily - levothyroxine 75 mcg daily - prednisone 10 mg daily - ipratropium - albuterol 0.5-3 mg nebulizer four times day - Symbicort two puffs two times daily - vitamin D 50,000 units weekly ALLERGIES: KEITH INHIBITORS, BUPROPION HCL. SOCIAL HISTORY: Lives by herself. Reports that her son works in the hospital, [employer]ir[employer]. Her son checks on her on a daily basis. She is currently retired. Smokes approximately 4-10 cigarettes a day. She has a 60-year history of smoking. Denies any alcohol or recreational drug use. Denies any recent travels. She denies any recent sick contacts. FAMILY HISTORY: Reports having a father who of a myocardial infarction in his 60s. The patient has a mother who of heart disease at the age of 38. REVIEW OF SYSTEMS: Constitutional: Denies any fevers, night sweats, weight loss, unexplained weight loss. HEENT: No headaches, nasal congestion, changes in vision. Cardiovascular: Denies chest pain, palpitations. Respiratory: Admits to shortness of breath, exercise intolerance,. Denies cough. Gastrointestinal: Denies abdominal pain, diarrhea, constipation, nausea, vomiting. : Denies any dysuria, hematuria. Musculoskeletal: Denies any new joint pains, swelling. Integumentary: Denies any new skin changes, changes in skin color. Neurologic: Denies any loss of sensation. Psychiatric: Denies depression or anxiety, changes with memory. Hematologic: No abnormal bleeding or bruising. PHYSICAL EXAMINATION: Vital signs: Blood pressure 145/69, pulse 104, respirations 32, temperature 98.2, pulse oximetry 88% on 4 liters nasal cannula. Her weight is 65.77 kg. Her height is 157 cm. General: Lying on the hospital bed. Does appear to be in mild distress when conversing, but when resting, she does not appear to be in acute distress. She is calm and cooperative. HEENT: Normocephalic, atraumatic. Her extraocular movements are intact bilaterally. Her mucous membranes are moist. Cardiovascular: Regular rate and rhythm, no murmurs appreciated. Respiratory: Diminished bilaterally. She has shallow breathing. No wheezes heard bilaterally. She is speaking in full sentences. No accessory muscle use. Abdomen:: Soft, nontender, nondistended. No rebound or guarding. Extremities: No edema in the lower extremities. +2 pulses radial. Skin: [place], dry, warm. She does appear to have dry skin throughout her body. Capillary refill is less than 2 seconds. No abnormal rashes. Neurologic: No sensory deficits. Cranial nerves II-XII are grossly intact. LABORATORY STUDIES: ABG: Partial pressure CO2 is 78.6, partial pressure of O2 is 64.4. Her pH is 7.37, total CO2 is 47.0, HCO3 44.6, base excess is 16.9, standard HCO3 is 40.6, O2 saturation is 92.3. BNP is 282, WBC is 7.9, hemoglobin 8.2, hematocrit 29.8, platelet count is 217. A chest x-ray was taken on 07/07/2016, shows right lower lung infiltrate. ASSESSMENT AND PLAN: This is an 80-year-old female with pneumonia and history of chronic obstructive pulmonary disease. At this time, we are admitting the patient to the ICU for further stabilization. We will continue her home medications for COPD. Currently, she does maintain decent oxygen saturations on 4 liters of oxygen. However, her breath sounds are diminished. She is hypercarbic but is currently compensated. Pulmonology, Dr. Gil, had has been notified as she may need advanced oxygen therapy later. We have started her on ceftriaxone and azithromycin has been started for pneumonia. We are pending blood cultures. A repeat ABG will be done when the patient is up on the floor. At this time, we are continuing her breathing treatments with Xopenex. We are starting her on Solu-Medrol at 81 mg IV. The patient will be anticoagulated with Lovenox for deep vein thrombosis (DVT) prophylaxis. She has also been started on a bowel regimen. The plan was discussed with the patient, and she was agreeable to the plan. She had no further concerns or questions. My preceptor for this patient encounter was Dr. Bea Corona. The preceptor was physically present in the building during the encounter and was fully available. As needed, all aspects of the patient interview, examination, medical decision making process, and medical care plan development were reviewed and approved by the preceptor. The preceptor is aware and concurs with the plan as stated in the body of this note and will attest to such by his/her cosignature.
[2016-07-08] MEDS: SYMBICORT 160/4.5MCG INHALER 6GM INH SCH ×2 (07:48→19:44)
[2016-07-08] MEDS: methylPREDNISolone INJ 125 MG/2 ML VIAL (J2930) IV SCH ×2 (07:55→16:44)
[2016-07-08] MEDS: ASCORBIC ACID 500 MG TAB PO SCH ×2 (07:55→09:00)
[2016-07-08] MEDS: DOCUSATE SODIUM 100 MG CAP PO SCH ×3 (09:00→20:24)
[2016-07-08] MEDS: NICOTINE 7 MG/24 HR TRANSDERMAL TD SCH (09:19)
[2016-07-08] MEDS: ENOXAPARIN 30 MG/0.3 ML SYR (J1650) SC SCH (09:20)
[2016-07-08] MEDS: OMEPRAZOLE 20 MG CAP PO SCH (09:20)
[2016-07-08] MEDS: FUROSEMIDE 40 MG TAB PO SCH (09:20)
[2016-07-08] MEDS: FERROUS SULFATE 325MG TAB PO SCH (09:20)
--- NOTE | 2016-07-08 10:20 | CR ---
DATE OF CONSULTATION: 07/08/2016 PULMONARY CRITICAL CARE CONSULTATION I was asked to assist in the management of Pia Pinzon. She is an 80-year-old female with well-documented chronic hypoxemic and hypercapnic respiratory failure, advanced emphysema and essentially end-stage lung disease. She is oxygen dependent at home and, unfortunately, continues to smoke. She has not been seen by our office since January of 2015. She was admitted with increasing shortness of breath. First arterial blood gas done in the emergency room showed a pH of 7.372, pCO2 of 70.6 and a Pa02 of 64.4. Chest x-ray is of poor inspiratory quality, markedly rotated. Some concern was raised over basilar atelectasis or infiltrate but the film, at least to my eye, is completely inconclusive. She was admitted to the intensive care unit and treated with nebulized bronchodilators as well as intravenous (IV) steroids. She had worsening difficulties with oxygenation and a repeat blood gas done at 2317 hours last evening had a pH of 7.331, pCO2 89.5 and a PaO2 of 45.8. She had been vigorously diuresed without any significant improvement in her oxygenation. She was then placed on noninvasive support. With manipulations of her inspiratory pressures to achieve tidal volumes in and around 300, blood gas done this morning on inspiratory 16, expiratory 8, FiO2 of 30% has a pH of 7.397, pCO2 of 81.0 and a PaO2 of 91.1. No report of any fever at home. As outlined above, she continues to smoke. No report of any recent fevers or chills. ALLERGIES: Listed as ANGIOTENSIN-CONVERTING ENZYME (KEITH) and BUPROPION. MEDICATIONS AT HOME: - Lasix 40 mg a day - omeprazole 40 mg a day - levothyroxine 75 mcg daily - prednisone 10 mg daily - albuterol/Atrovent nebs - Symbicort unknown dosage two puffs twice a day - vitamin D replacement weekly - She is baseline on 3 liters of oxygen PAST MEDICAL HISTORY: Significant for her end-stage obstructive lung disease with chronic hypoxemic, hypercapnic respiratory failure. High risk medication/chronic steroids. Underlying hypotension. Underlying hypothyroidism. History of a benign lumpectomy of the breast. SOCIAL HISTORY: Currently lives alone. Son does live nearby. She continues to smoke, at times a half a pack of cigarettes daily. No other occupational or environmental exposure. FAMILY HISTORY: Father of an myocardial infarction ([place]), mother young of heart disease. REVIEW OF SYSTEMS: As per history of the present illness. Otherwise: CONSTITUTION: No recent fevers or chills. HEENT: Unremarkable for double vision or blurry vision. PULMONARY: As per the history of the present illness. CARDIAC: Unremarkable for any recent angina. GI: Unremarkable for nausea or vomiting. : Unremarkable for any recent dysuria or urgency. Neurologic: Unremarkable for seizures or strokes. Endocrine: Significant for hypothyroidism. Dermatologic: Unremarkable for any new rash or psoriasis. Allergic/Immunologic: Unremarkable. Psychiatric: Unremarkable. Musculoskeletal: Unremarkable for any new arthralgias or myalgias. PHYSICAL EXAMINATION: Currently reveals an elderly female lying in bed in the intensive care unit with noninvasive mask in place. Blood pressure 119/58, heart rate in the 80s, respiratory rate 22 without accessory muscle use, and she is currently afebrile. HEENT: Otherwise reasonably normocephalic and atraumatic. As noted above, the noninvasive mask is in place. Jugular venous is difficult to assess. Mucous membranes of the nose and mouth mildly dry with a mask in place. Chest shows kyphosis with hyperresonance to percussion. Marked global decreased breath sound intensity. With the noninvasive mask in place, air exchange is reasonable. No convincing wheeze. Occasional rhonchus. There are some fine dependent opening crackles. Cardiac exam: Distant but regular. Peripheral pulses palpable. No obvious edema. Abdomen: Obese, soft with active bowel sounds. No convincing organomegaly or masses. Extremities: Without cyanosis or clubbing. Neurologically, she is awake, alert and appropriate. Psychiatric: Reasonably normal mood and affect. ABGs as outlined above. White blood cell count this morning 6.2, hemoglobin 8.4, platelet count 225,000, 92% segmented neutrophils, no bands. Sodium 139, potassium (K) of 4.0, chloride 87, CO2 46, BUN 22, creatinine 0.83. IMPRESSION: Acute on chronic respiratory failure, both hypoxemic and hypercapnic. End-stage obstructive lung disease. Continued tobacco abuse. High risk medication/chronic steroids. Hypothyroidism, on replacement therapy. RECOMMENDATIONS: At this point, I believe this is more likely an acute exacerbation of underlying obstructive lung disease. I am not as convinced by x-ray that this represents a pneumonia, but given her presentation, cannot argue with the use of antimicrobials empirically to cover community-acquired process. For now, I would continue noninvasive support as needed. Currently, she desires DNR status based on MOLST in the chart. Obviously, smoking cessation is paramount, but I am not optimistic that this will happen. We will continue with her other medications as best we can for now. She is at high risk for further compromise of her respiratory status. She will be closely watched while she is here in the hospital. Further recommendations will be made in the progress record as new information becomes available. WOLF
--- NOTE | 2016-07-08 12:00 | IPNPDOC ---
Subjective Date Seen The patient was seen on 07/08/16. Subjective Chief Complaint/HPI The patient is a 80-year-old female admitted with a reason for visit of Cap ( Community Acquired Pneumonia). General: Denies: Chills, Fatigue, Malaise, Night Sweats, Normal Appetite, Other Symptoms, ROS Unobtainable Constitutional: Denies: Chills, Fatigue, Fever, Lethargy, Malaise, Night Sweats , Other, Weakness, Weight Loss Eyes: Denies: Conjunctivae inflammation, Eyelid inflammation, Other, Pain, Redness, Vision change ENT: Denies: Dysphagia, Ear Pain, Epistaxis, Head Aches, Other Symptoms, Post Nasal Drip, Sinus Congestion, Sore Throat Skin: Denies: Breakdown, Bruising, Dry, Itching, Jaundice, Lesions, Nail Changes, Other, Rash Pulmonary: Reports: Cough, Dyspnea, Denies: Other Symptoms, Pleuritic Chest Pain Cardiovascular: Denies: Chest Pain, Edema, Lt Headedness, Orthopnea, Other Symptoms, Palpitations, Paroxysmal Noc. Dyspnea Gastrointestinal: Denies: Abdominal Pain, Constipation, Diarrhea, Hematochezia , Melena, Nausea, Other Symptoms, Vomiting Genitourinary: Denies: Dysuria, Frequency, Hematuria, Incontinence, Other Symptoms, Retention Objective Physical Examination General Exam: Positive: Cooperative, Mild Distress Eye Exam: Positive: Conjunctiva & lids normal, EOMI, PERRLA, Negative: Sclera icteric ENT Exam: Positive: Atraumatic Chest Exam: Positive: Clear to auscultation, Diminished Heart Exam: Positive: Rate Normal, Regular Rhythm Telemetry: Positive: No significant arrhythmia Extremity Exam: Negative: Edema Psych Exam: Positive: Oriented x 3 Assessment /Plan Problems (1) Acute on chronic respiratory failure with hypoxia and hypercapnia Status: Acute Problem Specific Plan: Consult Specialist, Monitor Clinically, Repeat Labs Problem Text: Currently requiring NIPPV. (2) COPD (chronic obstructive pulmonary disease) Status: Acute Problem Specific Plan: Consult Specialist, Monitor Clinically Problem Text: copd exacerbation. ceftriaxone and azithromycin day #1 Respiratory regimen: symbicort, atrovent, xopenex IV steroids as per above, hypercarbic requiring NIPPV (3) CAP (community acquired pneumonia) Status: Acute Discussed With: Patient Problem Specific Plan: Monitor Clinically, Repeat Labs Problem Text: Continue with ceftriaxone/azithromycin day #1 MRSA screen, sputum cultures/gram stain incentive spirometry (4) HTN (hypertension) Status: Chronic Problem Specific Plan: Monitor Clinically Problem Text: continue lasix (5) Hypothyroidism Status: Chronic Problem Text: continue synthroid (6) Nicotine addiction Status: Chronic (7) Anemia Status: Chronic Plan/VTE VTE Prophylaxis Ordered?: Yes Plan Diet: Continue Current Therapy: PT, OT Respiratory: Wean Oxygen Diagnostics: Repeat Labs in AM, Obtain Cultures VS, I&O, 24H, Fishbone Vital Signs/I&O Vital Signs Date Time Temp Pulse Resp B/P Pulse Ox O2 Delivery O2 Flow Rate FiO2 07/08/16 08:00 98.3 81 31 119/55 99 NIPPV (BIPAP/CPAP) 40 07/08/16 08:00 4.0 I&O- Last 24 Hours up to 6 AM 07/08/16 06:00 Intake Total 0 ml Output Total 1525 ml Balance -1525 ml Laboratory Data 24H LABS Laboratory Tests 2 07/07/16 19:24: Arterial Blood pH 7.372, Arterial Blood Partial Pressure CO2 78.6*H, Arterial Blood Partial Pressure O2 64.4L, Arterial Blood Total CO2 47.0H, Arterial Blood HCO3 44.6H, Arterial Blood Base Excess 16.9H, Arterial Blood Oxygen Saturation 92.3L, Blood Gas Bicarbonate Standard 40.6H, Oxygen Delivery Device NASAL RITESH 07/07/16 19:26: Absolute Reticulocyte Count 58, Anion Gap 6L, Anisocytosis 1+, B-Type Natriuretic Peptide 282H, White Blood Count 7.9, Red Blood Count 4.13, Hemoglobin 8.2L, Hematocrit 29.8L, Mean Corpuscular Volume 72.3L, Mean Corpuscular Hemoglobin 19.9L, Mean Corpuscular Hemoglobin Concent 27.5L, Red Cell Distribution Width 16.5H, Platelet Count 217, Neutrophils (%) (Auto) 72.7H , Lymphocytes (%) (Auto) 15.1L, Monocytes (%) (Auto) 4.4, Eosinophils (%) (Auto ) 5.6H, Basophils (%) (Auto) 0.3, Neutrophils # (Auto) 5.7, Lymphocytes # (Auto ) 1.2L, Monocytes # (Auto) 0.3, Eosinophils # (Auto) 0.4, Basophils # (Auto) 0.0 , Blood Urea Nitrogen 21H, Creatinine 0.74, Sodium Level 137, Potassium Level 4.1, Chloride Level 88L, Carbon Dioxide Level 43H, Calcium Level 8.2L, Total Creatine Kinase 71, Creatine Kinase MB 1.9, Creatine Kinase MB Relative Index 2.67, Ferritin 5L, Glomerular Filtration Rate > 60.0, Hypochromasia 3+, Iron Level 23L, Lactic Acid (Sepsis) 0.8, Large Unclassified Cells # 0.2, Large Unclassified Cells % 2.0, Microcytosis 2+, Percent Reticulocyte Count 1.40, Platelet Estimate NORMAL, Reticulocyte Hgb Content (CHr) 20.3L, Total Iron Binding Capacity 530H, Transferrin % Saturation 4.3L, Troponin I < 0.02 07/07/16 21:47: 07/07/16 23:17: Arterial Blood pH 7.331L, Arterial Blood Partial Pressure CO2 89.5*H, Arterial Blood Partial Pressure O2 45.8*L, Arterial Blood Total CO2 49.0H, Arterial Blood HCO3 46.2H, Arterial Blood Base Excess 17.4H, Arterial Blood Oxygen Saturation 78.4L, Blood Gas Bicarbonate Standard 40.9H, Arterial Blood Gas Puncture Site UNKNOWN 07/08/16 00:04: Creatine Kinase MB 2.8, Creatine Kinase MB Relative Index 4.05H, Total Creatine Kinase 69, Troponin I < 0.02 07/08/16 03:27: Arterial Blood pH 7.397, Arterial Blood Partial Pressure CO2 81.0*H, Arterial Blood Partial Pressure O2 91.1, Arterial Blood Total CO2 51.2H, Arterial Blood HCO3 48.7H, Arterial Blood Base Excess 20.8H, Arterial Blood Oxygen Saturation 97.1, Blood Gas Bicarbonate Standard 44.9H, Oxygen Delivery Device BIPAP 07/08/16 06:03: Creatine Kinase MB 1.7, Creatine Kinase MB Relative Index 2.88, Total Creatine Kinase 59, Troponin I < 0.02, Anion Gap 6L, White Blood Count 6.2, Red Blood Count 4.18, Hemoglobin 8.4L, Hematocrit 30.5L, Mean Corpuscular Volume 73.0L, Mean Corpuscular Hemoglobin 20.0L, Mean Corpuscular Hemoglobin Concent 27.4L, Red Cell Distribution Width 16.9H, Platelet Count 225, Neutrophils (%) (Auto) 92.9H, Lymphocytes (%) (Auto) 3.9L, Monocytes (%) (Auto) 2.7, Eosinophils (%) ( Auto) 0.2, Basophils (%) (Auto) 0.1, Neutrophils # (Auto) 5.8, Lymphocytes # ( Auto) 0.3L, Monocytes # (Auto) 0.2, Eosinophils # (Auto) 0.0, Basophils # (Auto ) 0.0, Blood Urea Nitrogen 22H, Creatinine 0.83, Sodium Level 139, Potassium Level 4.0, Chloride Level 87L, Carbon Dioxide Level 46H, Calcium Level 8.6L, Glomerular Filtration Rate > 60.0, Large Unclassified Cells # 0.0, Large Unclassified Cells % 0.1 CBC/BMP Laboratory Tests 07/07/16 19:26 Calcium Level 8.2 L, Total Creatine Kinase 71, Red Blood Count 4.13, Mean Corpuscular Volume 72.3 L, Mean Corpuscular Hemoglobin 19.9 L, Mean Corpuscular Hemoglobin Concent 27.5 L, Red Cell Distribution Width 16.5 H, Neutrophils (%) ( Auto) 72.7 H, Lymphocytes (%) (Auto) 15.1 L, Monocytes (%) (Auto) 4.4, Eosinophils (%) (Auto) 5.6 H, Basophils (%) (Auto) 0.3, Neutrophils # (Auto) 5.7 , Lymphocytes # (Auto) 1.2 L, Monocytes # (Auto) 0.3, Eosinophils # (Auto) 0.4, Basophils # (Auto) 0.0 07/08/16 06:03 Calcium Level 8.6 L, Total Creatine Kinase 59, Red Blood Count 4.18, Mean Corpuscular Volume 73.0 L, Mean Corpuscular Hemoglobin 20.0 L, Mean Corpuscular Hemoglobin Concent 27.4 L, Red Cell Distribution Width 16.9 H, Neutrophils (%) ( Auto) 92.9 H, Lymphocytes (%) (Auto) 3.9 L, Monocytes (%) (Auto) 2.7, Eosinophils (%) (Auto) 0.2, Basophils (%) (Auto) 0.1, Neutrophils # (Auto) 5.8, Lymphocytes # (Auto) 0.3 L, Monocytes # (Auto) 0.2, Eosinophils # (Auto) 0.0, Basophils # (Auto) 0.0 [facility] 07/07/16 Blood Culture, Received Pending 07/07/16 Blood Culture, Received Pending 07/07/16 MRSA Screen, Resulted Pending 07/07/16 Respiratory Virus Panel (PCR) ([facility]) - Final, Resulted 07/07/16 Influenza Virus Type A Antigen - Final, Complete 07/07/16 Influenza Virus Type B Antigen - Final, Complete MARI JUSTICE MD Jul 08, 2016 09:05
[2016-07-08] MEDS: cefTRIAXone SOD 2 GM in D5W MINI-BAG PLUS 50 ML IV SCH (18:32)
[2016-07-08] MEDS: AZITHROMYCIN INJ 500 MG, VIAL MATE ADAPTER 1 EACH in D5W 250 ML IV SCH (20:24)
[2016-07-08] MEDS ORDERED: VANCOMYCIN HCL 1,000 MG, VIAL MATE ADAPTER 1 EACH in D5W 250 ML IV ONE (21:30)
[2016-07-09] VITALS (7 sets, daily range): BP systolic 93–133; BP diastolic 52–95
[2016-07-09] MEDS: methylPREDNISolone INJ 125 MG/2 ML VIAL (J2930) IV SCH ×4 (00:19→23:56)
[2016-07-09] MEDS: ACETAMINOPHEN TAB 650MG DOSE (2X325MG) PO PRN (03:44)
[2016-07-09] MEDS: IPRATROPIUM 0.02% SOLN 0.5MG/2.5 ML NEB INH SCH ×5 (04:32→21:16)
[2016-07-09] MEDS: LEVALBUTEROL 1.25 MG/0.5 ML CONCENTRATE NEB INH SCH ×5 (04:32→21:16)
[2016-07-09] MEDS: ALPRAZolam 0.25 MG TAB PO PRN (04:37)
[2016-07-09 04:45] LABS: BASO % 0.1 % (0.0-1.0); EOS % 0.1 % (0.0-3.0); LARGE UNSTAINED CELL # 0.1 K/mm3 (0.0-0.4); LARGE UNSTAINED CELL % 0.4 % (0.0-4.0); LYMPH # 0.3 K/mm3 (1.5-4.5); LYMPH % 2.3 % (24.0-44.0); MEAN CORPUSCULAR HEMOGLOBIN 19.6 pg (27.0-33.0); MEAN CORPUSCULAR HGB CONC 27.2 g/dl (32.0-36.5); MONO # 0.3 K/mm3 (0.0-0.8); MONO % 1.9 % (0.0-5.0); NEUTROPHILS # 13.2 K/mm3 (1.8-7.7); NEUTROPHILS % 95.2 % (36.0-66.0); PLATELET COUNT, AUTOMATED 204 k/mm3 (150-450); RED CELL DISTRIBUTION WIDTH 16.7 % (11.5-14.5); WHITE BLOOD COUNT 13.9 K/mm3 (4.0-10.0)
[2016-07-09 05:05] LABS: BLOOD UREA NITROGEN 31 MG/DL (7-18); CALCIUM LEVEL 8.2 MG/DL (8.8-10.2); CHLORIDE LEVEL 88 MEQ/L (98-107); CREATININE FOR GFR 0.86 MG/DL (0.55-1.02); GLOMERULAR FILTRATION RATE > 60.0 (>32); GLUCOSE, FASTING 123 MG/DL (83-110); POTASSIUM SERUM 3.8 MEQ/L (3.5-5.1); SODIUM LEVEL 139 MEQ/L (136-145)
[2016-07-09 05:26] LABS: ANION GAP 2 MEQ/L (8-16)
[2016-07-09 05:36] LABS: CARBON DIOXIDE LEVEL 49 MEQ/L (21-32)
[2016-07-09] MEDS: SLF 3 ML SYR IV SCH ×3 (06:00→22:00)
[2016-07-09] MEDS: LEVOTHYROXINE 0.075 MG TAB (75 MCG) PO SCH (06:54)
[2016-07-09] MEDS: SYMBICORT 160/4.5MCG INHALER 6GM INH SCH ×2 (08:25→21:00)
[2016-07-09] MEDS: ENOXAPARIN 30 MG/0.3 ML SYR (J1650) SC SCH (08:47)
[2016-07-09] MEDS: NICOTINE 7 MG/24 HR TRANSDERMAL TD SCH (08:47)
[2016-07-09] MEDS: OMEPRAZOLE 20 MG CAP PO SCH (08:48)
[2016-07-09] MEDS: FERROUS SULFATE 325MG TAB PO SCH (08:48)
[2016-07-09] MEDS: DOCUSATE SODIUM 100 MG CAP PO SCH ×2 (08:48→21:00)
[2016-07-09] MEDS: FUROSEMIDE 40 MG TAB PO SCH (08:48)
[2016-07-09] MEDS: ASCORBIC ACID 500 MG TAB PO SCH ×2 (08:48→17:58)
--- NOTE | 2016-07-09 10:31 | IPNPDOC ---
Subjective Date Seen The patient was seen on 07/09/16. Subjective Chief Complaint/HPI The patient is a 80-year-old female admitted with a reason for visit of Cap ( Community Acquired Pneumonia). General: Denies: Chills, Fatigue, Malaise, Night Sweats, Normal Appetite, Other Symptoms, ROS Unobtainable Constitutional: Denies: Chills, Fatigue, Fever, Lethargy, Malaise, Night Sweats , Other, Weakness, Weight Loss Eyes: Denies: Conjunctivae inflammation, Eyelid inflammation, Other, Pain, Redness, Vision change ENT: Denies: Dysphagia, Ear Pain, Epistaxis, Head Aches, Other Symptoms, Post Nasal Drip, Sinus Congestion, Sore Throat Skin: Denies: Breakdown, Bruising, Dry, Itching, Jaundice, Lesions, Nail Changes, Other, Rash Pulmonary: Reports: Cough, Dyspnea, Denies: Other Symptoms, Pleuritic Chest Pain Cardiovascular: Denies: Chest Pain, Edema, Lt Headedness, Orthopnea, Other Symptoms, Palpitations, Paroxysmal Noc. Dyspnea Gastrointestinal: Denies: Abdominal Pain, Constipation, Diarrhea, Hematochezia , Melena, Nausea, Other Symptoms, Vomiting Genitourinary: Denies: Dysuria, Frequency, Hematuria, Incontinence, Other Symptoms, Retention Objective Physical Examination General Exam: Positive: Alert, Cooperative, No Acute Distress Eye Exam: Positive: Conjunctiva & lids normal, EOMI, PERRLA, Negative: Sclera icteric ENT Exam: Positive: Atraumatic Chest Exam: Positive: Diminished, Other (mild wheezes, minimal bibasilar crackles) Heart Exam: Positive: Rate Normal, Regular Rhythm Telemetry: Positive: No significant arrhythmia Abdomen Exam: Positive: Normal bowel sounds, Soft, Negative: Tenderness Extremity Exam: Negative: Edema Psych Exam: Positive: Oriented x 3 Assessment /Plan Problems (1) Acute on chronic respiratory failure with hypoxia and hypercapnia Status: Acute Problem Specific Plan: Consult Specialist, Monitor Clinically, Repeat Labs Problem Text: Was requiring NIPPV, removed this morning. Will continue to follow. Uses 3L at baseline. (2) COPD (chronic obstructive pulmonary disease) Status: Acute Problem Specific Plan: Consult Specialist, Monitor Clinically Problem Text: copd exacerbation. ceftriaxone and azithromycin day #2 Respiratory regimen: symbicort, atrovent, xopenex IV steroids as per above, hypercarbic requiring NIPPV (3) CAP (community acquired pneumonia) Status: Acute Discussed With: Patient Problem Specific Plan: Monitor Clinically, Repeat Labs Problem Text: Continue with ceftriaxone/azithromycin day #2 MRSA screen, sputum cultures/gram stain incentive spirometry (4) HTN (hypertension) Status: Chronic Problem Specific Plan: Monitor Clinically Problem Text: continue lasix (5) Hypothyroidism Status: Chronic Problem Text: continue synthroid (6) Nicotine addiction Status: Chronic (7) Anemia Status: Chronic Plan/VTE VTE Prophylaxis Ordered?: Yes Plan Diet: Continue Current Therapy: PT, OT Respiratory: Wean Oxygen Diagnostics: Repeat Labs in AM, Obtain Cultures VS, I&O, 24H, Fishbone Vital Signs/I&O Vital Signs Date Time Temp Pulse Resp B/P Pulse Ox O2 Delivery O2 Flow Rate FiO2 07/09/16 08:00 97.5 91 28 133/95 93 Nasal Cannula 3.0 07/09/16 06:00 40 I&O- Last 24 Hours up to 6 AM 07/09/16 05:59 Intake Total 1200 ml Output Total 1020 ml Balance 180 ml Laboratory Data 24H LABS Laboratory Tests 2 07/08/16 21:42: C-Reactive Protein, Quantitative 0.40H, Erythrocyte Sedimentation Rate 45H 07/09/16 04:25: Anion Gap 2L, White Blood Count 13.9H, Red Blood Count 4.27, Hemoglobin 8.4L, Hematocrit 30.7L, Mean Corpuscular Volume 72.0L, Mean Corpuscular Hemoglobin 19.6L, Mean Corpuscular Hemoglobin Concent 27.2L, Red Cell Distribution Width 16.7H, Platelet Count 204, Neutrophils (%) (Auto) 95.2H, Lymphocytes (%) (Auto) 2.3L, Monocytes (%) (Auto) 1.9, Eosinophils (%) (Auto) 0.1, Basophils (%) (Auto ) 0.1, Neutrophils # (Auto) 13.2H, Lymphocytes # (Auto) 0.3L, Monocytes # (Auto ) 0.3, Eosinophils # (Auto) 0.0, Basophils # (Auto) 0.0, Blood Urea Nitrogen 31H , Creatinine 0.86, Sodium Level 139, Potassium Level 3.8, Chloride Level 88L, Carbon Dioxide Level 49H, Calcium Level 8.2L, Glomerular Filtration Rate > 60.0 , Large Unclassified Cells # 0.1, Large Unclassified Cells % 0.4 CBC/BMP Laboratory Tests 07/09/16 04:25 Calcium Level 8.2 L, Red Blood Count 4.27, Mean Corpuscular Volume 72.0 L, Mean Corpuscular Hemoglobin 19.6 L, Mean Corpuscular Hemoglobin Concent 27.2 L, Red Cell Distribution Width 16.7 H, Neutrophils (%) (Auto) 95.2 H, Lymphocytes (%) ( Auto) 2.3 L, Monocytes (%) (Auto) 1.9, Eosinophils (%) (Auto) 0.1, Basophils (% ) (Auto) 0.1, Neutrophils # (Auto) 13.2 H, Lymphocytes # (Auto) 0.3 L, Monocytes # (Auto) 0.3, Eosinophils # (Auto) 0.0, Basophils # (Auto) 0.0 Microbiology Microbiology 07/08/16 Blood Culture, Received Pending 07/08/16 Blood Culture, Received Pending 07/07/16 Blood Culture - Preliminary, Resulted No growth after 24 hours . All specim... 07/07/16 Blood Culture - Preliminary, Resulted 07/09/16 Stool Occult Blood ([facility]) - Final, Complete 07/07/16 MRSA Screen - Final, Complete 07/07/16 Respiratory Virus Panel (PCR) ([facility]) - Final, Complete 07/07/16 Influenza Virus Type A Antigen - Final, Complete 07/07/16 Influenza Virus Type B Antigen - Final, Complete MARI JUSTICE MD Jul 09, 2016 10:31
[2016-07-09 12:20] LABS: ABG BASE EXCESS 19.5 (-2.0-2.0); ABG HCO3 46.8 MEQ/L (22.0-26.0); ABG PARTIAL PRESSURE O2 66.2 mmHg (75.0-100.0); ABG STANDARD HCO3 43.4 MEQ/L (22.0-26.0); ABG TOTAL CO2 49.1 MEQ/L (23.0-31.0); ABG pH (ARTERIAL) 7.411 UNITS (7.350-7.450)
[2016-07-09 12:26] LABS: ABG PARTIAL PRESSURE CO2 75.3 mmHg (35.0-45.0)
[2016-07-09] MEDS: cefTRIAXone SOD 2 GM in D5W MINI-BAG PLUS 50 ML IV SCH (17:58)
[2016-07-09] MEDS: AZITHROMYCIN INJ 500 MG, VIAL MATE ADAPTER 1 EACH in D5W 250 ML IV SCH (20:09)
--- NOTE | 2016-07-09 22:13 | EDDOCDS ---
Physician Documentation [facility] Name: Pia Pinzon Age: 80 yrs Sex: Female : 1935 Arrival Date: 07/07/2016 Time: 18:54 Bed 4 Private MD: Michael Gaaln M.D. Disposition: 07/07/16 19:45 Hospitalization ordered by Michael Galan for Inpatient Admission. Preliminary diagnosis is Pneumonia, unspecified organism. - Bed requested for M ICU. - Status is Inpatient Admission. ttb - Condition is Stable. - Problem is new. - Symptoms are unchanged. Historical: - Allergies: bupropion HCl; KEITH Inhibitors; - Home Meds: 1. furosemide 40 mg Oral tab 1 tab once daily (Last dose: 07/07/2016 09:00) 2. omeprazole 40 mg Oral cpDR 1 cap once daily (Last dose: 07/07/2016 09:00) 3. Oxygen 3 Litres daily 4. levothyroxine 75 mcg Oral tab 1 tab once daily (Last dose: 07/07/2016 09:00) 5. prednisone 10 mg Oral tab once daily (Last dose: 07/07/2016 09:00) 6. ipratropium-albuterol 0.5 mg-3 mg(2.5 mg base)/3 mL Inhl nebu 3 mL 4 times per day (Last dose: 07/07/2016 19:00) 7. Symbicort inhalation 2 puffs 2 times per day 8. Vitamin [place] [address]365 unit weekly - PMHx: COPD; Hypertension; Hypothyroidism; - Family history: Not pertinent. - Social history: Smoking status: Patient uses tobacco products, current every day smoker. No barriers to communication noted, The patient speaks fluent [place], Speaks appropriately for age. - : The pt / caregiver states he / she is not on anticoagulants. Home medication list is obtained from the patient. - Exposure Risk Screening:: None identified. - Code Status:: pt states DNR : although does not have it in writing. . - Advance directive:: Yes. Vital Signs: 07/07 19:08 BP 145 / 69; Pulse 104; Resp 32; Temp 98.2; Pulse Ox 94% on 4 lpm NC; Weight 65.77 kg / ttb 145 lbs (R); Height 5 ft. 2 in. (157.48 cm); Pain 0/10; 19:37 BP 143 / 61 (auto/); ttb 19:38 Pulse 90 MON; Pulse Ox 100% ; ttb 19:59 BP 130 / 60 (auto/); ttb 20:00 Pulse 96 MON; Pulse Ox 87% ; ttb 20:12 Pulse 98 MON; Resp 32; Temp 97.7; Pulse Ox 88% on 4 lpm NC; Pain 2/10; ttb 20:20 Pulse 110 MON; ttb 20:30 Pulse 100 MON; Pulse Ox 93% ; ttb 20:45 Pulse 96 MON; Pulse Ox 90% ; ttb 21:00 Pulse 102 MON; Pulse Ox 90% ; ttb 21:06 Pulse 96 MON; Resp 30; Temp 97.7(O); Pulse Ox 90% on 4 lpm NC; Pain 0/10; ttb 21:06 BP 121 / 56; ttb 19:08 Body Mass Index 26.52 (65.77 kg, 157.48 cm) ttb MDM: 19:06 Furosemide 80 mg IVP once ordered. ke 19:06 Solu-MEDROL 125 mg IVP once ordered. ke 19:06 -Blood Culture (Adults Only), peripheral from different site, or from device/port/PICC ke etc. if present ordered. 19:06 [employer] Supervisor/Pulse Ox/q 15 min VS ordered. ke 19:06 IV Saline Lock ordered. ke 19:06 Oxygen at 4L/Min NC or Home dosage ordered. ke 19:06 Rhythm Strip to chart ordered. ke 19:06 Albuterol-Ipratropium 1 neb Nebulizer every 20 minutes x3 ordered. ke 19:06 Call Respiratory ordered. ke 19:08 -Arterial Blood Gas Ordered. EDMS 19:08 B-Type Natiuretic Peptide Ordered. EDMS 19:08 Basic Metabolic Profile Ordered. EDMS 19:08 CBC with Diff Ordered. EDMS 19:08 Cardiac Injury Profile Ordered. EDMS 19:08 Troponin Ordered. EDMS 19:08 -Blood Culture Ordered. EDMS 19:08 Chest, 1 View Ordered. EDMS 19:08 ECG WITH READING ER PHYS+CARDIAG ordered. EDMS 19:08 Call Respiratory complete. jmb 19:12 Lactic Acid (Oro tube on ice) Ordered. EDMS 19:15 -Blood Culture (Adults Only), peripheral from different site, or from device/port/PICC jlm etc. if present complete. 19:15 BLOOD CULTURES Ordered. EDMS 19:39 RBC MORPH PROF NO CHARGE Ordered. EDMS 19:41 cefTRIAXone 1 grams IVPB once over 30 mins; dilute in 50mL of NS or D5W ordered. ke 19:41 azithromycin 500 mg IVPB once over 1 hrs; dilute in 250mL of D5W or NS ordered. ke 19:44 BED REQUEST+ADM ordered. EDMS 19:48 LEGIONELLA ANTIGEN URINE Ordered. EDMS 19:48 URINE STREP PNEUMONIAE ANTIGEN Ordered. EDMS 19:48 CBC WITH DIFFERENTIAL Ordered. EDMS 19:49 BASIC METABOLIC PROFILE Ordered. EDMS 19:49 INFLUENZA A&B RAPID ANTIGEN Ordered. EDMS 19:49 SPUTUM CULTURE AND GRAM STAIN Ordered. EDMS 19:49 PHYSICAL THERAPY EVAL & TREAT ordered. EDMS 19:50 Admission / Observation Status ordered. EDMS 19:50 Admission / Observation Status ordered. EDMS 19:51 ARTERIAL BLOOD GAS Ordered. EDMS 19:53 RESPIRATORY PANEL Ordered. EDMS 19:53 MRSA SCREEN Ordered. EDMS 19:55 COPD DIET ordered. EDMS 19:56 CARDIAC MARKER PANEL Ordered. EDMS 20:32 Financial registration complete. [email or web address] 20:33 [facility] Payment Agreement was scanned into [employer] and attached to record. [email or web address] 21:05 CARDIAC MARKER PANEL Ordered. EDMS 07/08 07:57 T-Sheet-- Draft Copy was scanned into [employer] and attached to record. [facility] 07/09 08:53 Trend VS was scanned into [employer] and attached to record. lg 08:54 ECG/EKG was scanned into [employer] and attached to record. lg Administered Medications: 07/07 19:25 Drug: Furosemide 80 mg [furosemide 10 mg/mL injection solution (8 mL)] Route: IVP; tm5 Site: left antecubital; 20:00 Follow up: Response: No Adverse Reaction ttb 19:25 Drug: Solu-MEDROL 125 mg [Solu-Medrol 500 mg intravenous solution (125 mg)] Route: IVP; tm5 Site: left antecubital; 20:00 Follow up: Response: No Adverse Reaction ttb 19:30 Drug: Albuterol-Ipratropium 1 neb [ipratropium-albuterol 0.5 mg-3 mg(2.5 mg base)/3 mL jc3 nebulization soln (1 neb)] Route: Nebulizer; 19:38 Drug: Albuterol-Ipratropium 1 neb [ipratropium-albuterol 0.5 mg-3 mg(2.5 mg base)/3 mL jc3 nebulization soln (1 neb)] Route: Nebulizer; 19:46 Drug: Albuterol-Ipratropium 1 neb [ipratropium-albuterol 0.5 mg-3 mg(2.5 mg base)/3 mL jc3 nebulization soln (1 neb)] Route: Nebulizer; 20:00 Drug: cefTRIAXone 1 grams [ceftriaxone 1 gram solution for injection] Route: IVPB; tm5 Infused Over: 30 mins; Site: left antecubital; 20:44 Follow up: Response: No Adverse Reaction; IV Status: Completed infusion ttb 20:44 Drug: NS 0.9% 250 ml, azithromycin 500 mg Route: IVPB; Infused Over: 1 hrs; Site: left ttb antecubital; Delivery: Pump; 21:11 Follow up: IV Status: Infusion continued upon admit ttb Signatures: Dispatcher [employer] EDMS Estefany Snyder, Reg Reg lg Geovany Raya, CLINICAL STAFF EDUCATOR CLINICAL STAFF EDUCATOR Vale Gonzalez, RN RN [id number] Arcelia Barnard RN RN Geronimo Rodriguez RN RN jmEda Snyder, [employer] jlm Tracey Harrison, Reg Reg [id number] Nydia Cui Joseph [id number] Tabitha Lopez RN tm5 The chart was reviewed and I authenticate all verbal orders and agree with the evaluation and treatment provided.Corrections: (The following items were deleted from the chart) 20:07 19:56 LACTIC ACID LEVEL, LACTATE ordered. EDMS EDMS 20:18 19:56 LACTIC ACID LEVEL, LACTATE ordered. EDMS EDMS 20:20 19:58 IRON (FE) ordered. EDMS EDMS 20:20 19:59 TOTAL IRON BINDING CAPACIT ordered. EDMS EDMS 20:20 19:59 RETICULOCYTE COUNT ordered. EDMS EDMS 20:21 19:59 FERRITIN ordered. EDMS EDMS 21:03 19:56 CARDIAC MARKER PANEL ordered. EDMS EDMS Attachments: 20:33 [facility] Payment Agreement [email or web address] 07/08 07:57 T-Sheet-- Draft Copy [facility] 08:54 ECG/EKG lg Chart Complete MTDD
--- NOTE | 2016-07-09 22:13 | EDDOCDS ---
Nurse's Notes [facility] Name: Pia Pinzon Age: 80 yrs Sex: Female : 1935 Arrival Date: 07/07/2016 Time: 18:54 Bed 4 Private MD: Michael Galan M.D. Diagnosis: Pneumonia, unspecified organism Presentation: 07/07 18:58 Presenting complaint: Presenting complaint: EMS states: SOB since this evening. ttb Improved in route per EMS. Pt labored upon entering ER. 19:04 Adult Sepsis Screening: The patient does not have new or worsening altered mentation. ttb Patient has a respiratory rate of greater than or equal to 22 (1 point). Systolic blood pressure is greater than 100. Patient has a qSOFA score of 1- Negative Sepsis Screen. Suicide/Homicide risk assessment- the patient denies having any suicidal and/or homicidal ideations and does not present with any other emotional, behavioral or mental health complaints. Status: Patient is not a hotel services sales representative or dependent. Transition of care: patient was not received from another setting of care. 19:04 Acuity: DIANA Level 2 ttb 19:04 Method Of Arrival: Ambulance ttb Triage Assessment: 19:09 General: Appears distressed, ill, well nourished, Behavior is anxious, appropriate for ttb age, uncooperative. Pain: Denies pain. Neurological: Level of Consciousness is awake, alert. Cardiovascular: Rhythm is irregular Chest pain is denied. Respiratory: Onset: The symptoms/episode began/occurred gradually, Airway is patent Respiratory effort is even, labored, shallow, Respiratory pattern is regular, tachypnea Reports shortness of breath at rest on exertion since this evening the patient has moderate shortness of breath. GI: Denies nausea, vomiting. Derm: Skin is normal. Injury Description: No known injury. Historical: - Allergies: bupropion HCl; KEITH Inhibitors; - Home Meds: 1. furosemide 40 mg Oral tab 1 tab once daily (Last dose: 07/07/2016 09:00) 2. omeprazole 40 mg Oral cpDR 1 cap once daily (Last dose: 07/07/2016 09:00) 3. Oxygen 3 Litres daily 4. levothyroxine 75 mcg Oral tab 1 tab once daily (Last dose: 07/07/2016 09:00) 5. prednisone 10 mg Oral tab once daily (Last dose: 07/07/2016 09:00) 6. ipratropium-albuterol 0.5 mg-3 mg(2.5 mg base)/3 mL Inhl nebu 3 mL 4 times per day (Last dose: 07/07/2016 19:00) 7. Symbicort inhalation 2 puffs 2 times per day 8. Vitamin D Oral 44724 unit weekly - PMHx: COPD; Hypertension; Hypothyroidism; - Family history: Not pertinent. - Social history: Smoking status: Patient uses tobacco products, current every day smoker. No barriers to communication noted, The patient speaks fluent Kinyarwanda, Speaks appropriately for age. - : The pt / caregiver states he / she is not on anticoagulants. Home medication list is obtained from the patient. - Exposure Risk Screening:: None identified. - Code Status:: pt states DNR : although does not have it in writing. . - Advance directive:: Yes. Screenin:31 Screening information is obtained from the patient. Fall risk: At risk due to age, The ttb following interventions are performed due to a positive Fall Risk Screen: Fall Risk is added to Special Handling on the patient Summary Screen. A Fall Risk Bracelet was applied to the patient. Side Rails are placed in the up position. A Call Esposito is given with instruction to call for help when getting out of bed. Assistance ADL's: requires no assistance with activities of daily living. Abuse/DV Screen: The patient / caregiver reports he/she is: not in a situation that causes fear, pain or injury. Nutritional screening: No deficits noted. 20:12 home support is adequate. ttb 20:53 Advance Directives: Currently, there is a health care proxy, Son (Nirav Blair ttb [phone]) Called at 2100 -- no response at this time Pt also gave # [phone] --no answer. Assessment: 20:00 General: Appears distressed, ill, well nourished, Behavior is anxious, restless, ttb uncooperative. 20:00 Neurological: Level of Consciousness is awake, alert. Cardiovascular: 3+ pitting to ttb LE's. Rhythm is irregular Chest pain is denied. Respiratory: Airway is patent Respiratory effort is even, labored, shallow, Respiratory pattern is regular, symmetrical, tachypnea Breath sounds with wheezes bilaterally. Reports shortness of breath cough that is labored breathing pain with respiration the patient has moderate shortness of breath. GI: Denies nausea, vomiting, pain. Derm: Skin is normal. 20:30 General: ICU contacted to give report. Unable to take report at this time. . ttb 20:50 General: ICU contacted to give report. RN unavailable at this time. Pt continues to ttb rest on stretcher. Resps remain labored, but pt able to answer questions appropriately. Sat 92% on 4L. . 20:50 Neurological: Level of Consciousness is awake, alert, Speech is normal. Cardiovascular: ttb Chest pain is denied. Respiratory: Airway is patent Respiratory effort is even, labored, shallow, Respiratory pattern is regular, symmetrical, tachypnea the patient has moderate shortness of breath. 21:05 Reassessment: pt condition slightly improved since arrival. Pt anxious to get to unit. ttb Report given to AGUILAR Tang on ICU at this time. . Vital Signs: 19:08 BP 145 / 69; Pulse 104; Resp 32; Temp 98.2; Pulse Ox 94% on 4 lpm NC; Weight 65.77 kg ttb (R); Height 5 ft. 2 in. (157.48 cm); Pain 0/10; 19:37 BP 143 / 61 (auto/); ttb 19:38 Pulse 90 MON; Pulse Ox 100% ; ttb 19:59 BP 130 / 60 (auto/); ttb 20:00 Pulse 96 MON; Pulse Ox 87% ; ttb 20:12 Pulse 98 MON; Resp 32; Temp 97.7; Pulse Ox 88% on 4 lpm NC; Pain 2/10; ttb 20:20 Pulse 110 MON; ttb 20:30 Pulse 100 MON; Pulse Ox 93% ; ttb 20:45 Pulse 96 MON; Pulse Ox 90% ; ttb 21:00 Pulse 102 MON; Pulse Ox 90% ; ttb 21:06 Pulse 96 MON; Resp 30; Temp 97.7(O); Pulse Ox 90% on 4 lpm NC; Pain 0/10; ttb 21:06 BP 121 / 56; ttb 19:08 Body Mass Index 26.52 (65.77 kg, 157.48 cm) ttb Vitals: 19:08 Log In Time N/A - ambulance arrival. ttb ED Course: 18:55 Patient visited by Claire Velasco, Snaker Tractor Driver. deg 18:55 Patient moved to 4 deg 18:56 Michael Galan is Private Physician. deg 19:05 [facility]. ke 19:05 Patient visited by Geovany Raya FNP. ke 19:05 Patient visited by Geovany Raya FNP. ke 19:05 Triage Initiated ttb 19:10 Patient visited by Arcelia Barnard RN. ttb 19:22 Pt greeted and oriented to ED. Patient advised of names of staff involved in care, jmv location of call esposito, wait times and NPO status. Patient has correct armband on for positive identification. Placed in gown. Bed in low position. Call light in reach. Side rails up X2. detonator assembler on. Pulse ox on. NIBP on. 19:22 EKG done. (by ED staff). Reviewed by Geovany DONOVAN. jmv 19:23 Patient visited by Drake Pearson PCA. jmv 19:30 -Arterial Blood Gas Sent. jc3 19:30 Lactic Acid (Oro tube on ice) Sent. ttb 19:30 -Blood Culture Sent. ttb 19:30 B-Type Natiuretic Peptide Sent. ttb 19:30 Basic Metabolic Profile Sent. ttb 19:30 CBC with Diff Sent. ttb 19:30 Cardiac Injury Profile Sent. ttb 19:30 Troponin Sent. ttb 19:30 Inserted peripheral IV: 20gauge IV in left antecubital area and blood collected. ttb Patient tolerated the procedure well. Labs drawn. (by ED staff). O2 via nasal cannula \T\ 4L/min. 19:31 The patient / caregiver is instructed regarding the plan of care and ED course. Patient ttb has correct armband on for positive identification. detonator assembler on. Pulse ox on. NIBP on. 19:44 Michael Galan is Hospitalizing Provider. ke 20:33 ID-[facility] [place] Payment Agreement was scanned into [employer] and attached to record. [id number] 21:06 No procedures done that require assistance. ttb 07/08 07:57 T-Sheet-- Draft Copy was scanned into [employer] and attached to record. seh 07/09 08:53 Trend VS was scanned into [employer] and attached to record. lg 08:54 ECG/EKG was scanned into [employer] and attached to record. lg Administered Medications: 07/07 19:25 Drug: Furosemide 80 mg [furosemide 10 mg/mL injection solution (8 mL)] Route: IVP; tm5 Site: left antecubital; 20:00 Follow up: Response: No Adverse Reaction ttb 19:25 Drug: Solu-MEDROL 125 mg [Solu-Medrol 500 mg intravenous solution (125 mg)] Route: IVP; tm5 Site: left antecubital; 20:00 Follow up: Response: No Adverse Reaction ttb 19:30 Drug: Albuterol-Ipratropium 1 neb [ipratropium-albuterol 0.5 mg-3 mg(2.5 mg base)/3 mL jc3 nebulization soln (1 neb)] Route: Nebulizer; 19:38 Drug: Albuterol-Ipratropium 1 neb [ipratropium-albuterol 0.5 mg-3 mg(2.5 mg base)/3 mL jc3 nebulization soln (1 neb)] Route: Nebulizer; 19:46 Drug: Albuterol-Ipratropium 1 neb [ipratropium-albuterol 0.5 mg-3 mg(2.5 mg base)/3 mL jc3 nebulization soln (1 neb)] Route: Nebulizer; 20:00 Drug: cefTRIAXone 1 grams [ceftriaxone 1 gram solution for injection] Route: IVPB; tm5 Infused Over: 30 mins; Site: left antecubital; 20:44 Follow up: Response: No Adverse Reaction; IV Status: Completed infusion ttb 20:44 Drug: NS 0.9% 250 ml, azithromycin 500 mg Route: IVPB; Infused Over: 1 hrs; Site: left ttb antecubital; Delivery: Pump; 21:11 Follow up: IV Status: Infusion continued upon admit ttb Attachments: 07/09 08:53 Trend VS lg RT: 07/07 19:30 ABG's drawn from right radial artery pressure held for 5 minutes no bleeding noted jc3 pressure bandage applied specimen sent pt. tolerated well. Initial Med Neb Given as ordered. O2 via nasal cannula \T\ 4L/min. Respiratory: Breath sounds are coarse bilaterally. Breath sounds are diminished bilaterally. Breath sounds with wheezes bilaterally. at expiration. 19:40 Subsequent Med Neb Given as ordered. jc3 19:46 Subsequent Med Neb Given as ordered. Respiratory: Breath sounds are diminished jc3 bilaterally. Breath sounds with wheezes bilaterally. at expiration. Order Results: Lab Order: -Arterial Blood Gas; [facility] 07/07/16 19:24 Test: ABG pH (ARTERIAL); Value: 7.372; Range: 7.350-7.450; Units: UNITS; Status: F Test: ABG PARTIAL PRESSURE CO2; Value: 78.6; Range: 35.0-45.0; Abnormal: Above upper panic limits; Units: mmHg; Status: F Test: ABG PARTIAL PRESSURE O2; Value: 64.4; Range: 75.0-100.0; Abnormal: Below low normal; Units: mmHg; Status: F Test: ABG TOTAL CO2; Value: 47.0; Range: 23.0-31.0; Abnormal: Above high normal; Units: MEQ/L; Status: F Test: ABG HCO3; Value: 44.6; Range: 22.0-26.0; Abnormal: Above high normal; Units: MEQ/L; Status: F Test: ABG BASE EXCESS; Value: 16.9; Range: -2.0-2.0; Abnormal: Above high normal; Status: F Test: ABG STANDARD HCO3; Value: 40.6; Range: 22.0-26.0; Abnormal: Above high normal; Units: MEQ/L; Status: F Test: ABG O2 SATURATION; Value: 92.3; Range: 95.0-99.0; Abnormal: Below low normal; Units: %; Status: F Test: ABG DEVICE; Value: NASAL RITESH; Status: F Lab Order: B-Type Natiuretic Peptide; [facility] 07/07/16 19:26 Test: BRAIN NATRIURETIC PEPTIDE; Value: 282; Range: <100; Abnormal: Above high normal; Units: PG/ML; Status: F Lab Order: Basic Metabolic Profile; [facility] 07/07/16 19:26 Test: GLUCOSE, FASTING; Value: 106; Range: 83-110; Units: MG/DL; Status: F Test: BLOOD UREA NITROGEN; Value: 21; Range: 7-18; Abnormal: Above high normal; Units: MG/DL; Status: F Test: CREATININE FOR GFR; Value: 0.74; Range: 0.55-1.02; Units: MG/DL; Status: F Test: GLOMERULAR FILTRATION RATE; Value: > 60.0; Range: >32; Status: F Test: SODIUM LEVEL; Value: 137; Range: 136-145; Units: MEQ/L; Status: F Test: POTASSIUM SERUM; Value: 4.1; Range: 3.5-5.1; Units: MEQ/L; Status: F Test: CHLORIDE LEVEL; Value: 88; Range: 98-107; Abnormal: Below low normal; Units: MEQ/L; Status: F Test: CARBON DIOXIDE LEVEL; Value: 43; Range: 21-32; Abnormal: Above high normal; Units: MEQ/L; Status: F Test: ANION GAP; Value: 6; Range: 8-16; Abnormal: Below low normal; Units: MEQ/L; Status: F Test: CALCIUM LEVEL; Value: 8.2; Range: 8.8-10.2; Abnormal: Below low normal; Units: MG/DL; Status: F Test Note: ; Units are mL/min/1.73 m2 Chronic Kidney Disease Staging per NKF: Stage I & II GFR >=60 Normal to Mildly Decreased Stage III GFR 30-59 Moderately Decreased Stage IV GFR 15-29 Severely Decreased Stage V GFR <15 Very Little GFR Left ESRD GFR <15 on REPAIRER KILN CAR Lab Order: CBC with Diff; [facility] 07/07/16 19:26 Test: WHITE BLOOD COUNT; Value: 7.9; Range: 4.0-10.0; Units: K/mm3; Status: F Test: RED BLOOD COUNT; Value: 4.13; Range: 4.00-5.40; Units: M/mm3; Status: F Test: HEMOGLOBIN; Value: 8.2; Range: 12.0-16.0; Abnormal: Below low normal; Units: g/dl; Status: F Test: HEMATOCRIT; Value: 29.8; Range: 36.0-47.0; Abnormal: Below low normal; Units: %; Status: F Test: MEAN CORPUSCULAR VOLUME; Value: 72.3; Range: 80.0-96.0; Abnormal: Below low normal; Units: fl; Status: F Test: MEAN CORPUSCULAR HEMOGLOBIN; Value: 19.9; Range: 27.0-33.0; Abnormal: Below low normal; Units: pg; Status: F Test: MEAN CORPUSCULAR HGB CONC; Value: 27.5; Range: 32.0-36.5; Abnormal: Below low normal; Units: g/dl; Status: F Test: RED CELL DISTRIBUTION WIDTH; Value: 16.5; Range: 11.5-14.5; Abnormal: Above high normal; Units: %; Status: F Test: PLATELET COUNT, AUTOMATED; Value: 217; Range: 150-450; Units: k/mm3; Status: F Test: NEUTROPHILS %; Value: 72.7; Range: 36.0-66.0; Abnormal: Above high normal; Units: %; Status: F Test: LYMPH %; Value: 15.1; Range: 24.0-44.0; Abnormal: Below low normal; Units: %; Status: F Test: MONO %; Value: 4.4; Range: 0.0-5.0; Units: %; Status: F Test: EOS %; Value: 5.6; Range: 0.0-3.0; Abnormal: Above high normal; Units: %; Status: F Test: BASO %; Value: 0.3; Range: 0.0-1.0; Units: %; Status: F Test: LARGE UNSTAINED CELL %; Value: 2.0; Range: 0.0-4.0; Units: %; Status: F Test: NEUTROPHILS #; Value: 5.7; Range: 1.8-7.7; Units: K/mm3; Status: F Test: LYMPH #; Value: 1.2; Range: 1.5-4.5; Abnormal: Below low normal; Units: K/mm3; Status: F Test: MONO #; Value: 0.3; Range: 0.0-0.8; Units: K/mm3; Status: F Test: EOS #; Value: 0.4; Range: 0.0-0.50; Units: K/mm3; Status: F Test: BASO #; Value: 0.0; Range: 0.0-0.2; Units: K/mm3; Status: F Test: LARGE UNSTAINED CELL #; Value: 0.2; Range: 0.0-0.4; Units: K/mm3; Status: F Lab Order: Cardiac Injury Profile; [facility] 07/07/16 19: Test: CPK CREATINE PHOSPHOKINASE; Value: 71; Range: 26-192; Units: U/L; Status: F Test: CK-MB VALUE MASS; Value: 1.9; Range: 0.0-3.6; Units: NG/ML; Status: F Test: MB/CK RELATIVE INDEX; Value: 2.67; Range: < OR =4; Status: F Test Note: ; DIAGNOSIS CRITERIA MMB ng/ml Relative Index (RI) NON-AMI < or = 5 N/A ORO ZONE > 5 < or = 4 AMI > 5 > 4 Lab Order: Troponin; [facility] Test: TROPONIN I; Value: < 0.02; Range: < 0.10; Units: NG/ML; Status: F Test Note: ; Troponin I Reference Interval for 500[employer]ops LOCI: 99th Percentile= 0.00-0.045 ng/ml Risk Stratification: <= 0.10 ng/ml Decreased Risk for Adverse Clinical Events. 0.10-1.50 ng/ml Increased Risk for Adverse Clinical Events. Evaluation of additional criterion and/or repeat testing in 2-6 hours is suggested to rule out myocardial damage. >= 1.50 ng/ml Indicative of Myocardial Injury. Lab Order: Lactic Acid (Oro tube on ice); [facility] 07/07/16: Test: LACTIC ACID SEPSIS PROTOCOL; Value: 0.8; Range: 0.4-2.0; Units: MMOL/L; Status: F Lab Order: RBC MORPH PROF NO CHARGE; [facility] 07/07/16 19: Test: PLATELET ESTIMATE; Range: NORMAL; Status: I Test: HYPOCHROMASIA; Value: 3+; Status: F Test: ANISOCYTOSIS; Value: 1+; Status: F Test: MICROCYTOSIS; Value: 2+; Status: F Test: PLATELET ESTIMATE; Value: NORMAL; Range: NORMAL; Status: F Lab Order: RETICULOCYTE COUNT; [facility] 07/07/16 19: Test: RETICULOCYTE % [id number]; Value: 1.40; Range: 0.5-1.5; Units: %; Status: F Test: RETICULOCYTE ABSOLUTE [id number]; Value: 58; Range: 17-77; Units: x10(9)/L; Status: F Test: RETIC HEMOGLOBIN CONTENT CHr; Value: 20.3; Range: 24-36; Abnormal: Below low normal; Units: PG; Status: F Lab Order: TOTAL IRON BINDING CAPACIT; [facility] 07/07/16 19:26 Test: IRON (FE); Value: 23; Range: 50-170; Abnormal: Below low normal; Units: UG/DL; Status: F Test: TOTAL IRON BINDING CAPACITY; Value: 530; Range: 250-450; Abnormal: Above high normal; Units: UG/DL; Status: F Test: PERCENT SATURATION; Value: 4.3; Range: 13.2-37.4; Abnormal: Below low normal; Units: %; Status: F Lab Order: FERRITIN; [facility] 07/07/16 19:26 Test: FERRITIN; Value: 5; Range: 8-252; Abnormal: Below low normal; Units: NG/ML; Status: F Outcome: 19:45 Decision to Hospitalize by Provider. ke 20:55 Discharge Assessment: patient administered narcotics - no. The following High Risk ttb Discharge criteria are identified: Yes, ICU admit. Admitted to ICU accompanied by nurse, accompanied by tech, via stretcher, with oxygen, on monitor, with chart. Condition: stable critical. Instructed on admission process. No special radiology studies were completed. Property :Personal belongings accompany Pt. 21:06 Admission hand-off: Report called to AGUILAR Tang on ICU given verbal report. ttb 21:11 Patient left the ED. ttb Signatures: Claire Velasco, Snaker Tractor Driver Unit deg Estefany Snyder, Reg Reg lg Geovany Raya, MASH FILTER CLOTH CHANGER MASH FILTER CLOTH CHANGER Boubacar Trejo [email or web address] Arcelia Barnard RN RN ttb Tracey Harrison, Reg Reg [email or web address] Nydia Cui Jose, MEME A AND P TECHNICIAN Tabitha Bustillo,RN RN tm5 Corrections: (The following items were deleted from the chart) 19:05 18:58 Presenting complaint: ttb ttb 21:03 20:53 Advance Directives: Currently, there is a health care proxy, Son : Nirav Blair ttb [phone]. ttb Chart Complete MTDD
--- NOTE | 2016-07-09 22:13 | EDDOCDS ---
Physician Documentation [facility] Name: Pia Pinzon Age: 80 yrs Sex: Female : 1935 Arrival Date: 07/07/2016 Time: 18:54 Bed 4 Private MD: Michael Galan M.D. Disposition: 07/07/16 19:45 Hospitalization ordered by Michael Galan for Inpatient Admission. Preliminary diagnosis is Pneumonia, unspecified organism. - Bed requested for M ICU. - Status is Inpatient Admission. ttb - Condition is Stable. - Problem is new. - Symptoms are unchanged. Historical: - Allergies: bupropion HCl; KEITH Inhibitors; - Home Meds: 1. furosemide 40 mg Oral tab 1 tab once daily (Last dose: 07/07/2016 09:00) 2. omeprazole 40 mg Oral cpDR 1 cap once daily (Last dose: 07/07/2016 09:00) 3. Oxygen 3 Litres daily 4. levothyroxine 75 mcg Oral tab 1 tab once daily (Last dose: 07/07/2016 09:00) 5. prednisone 10 mg Oral tab once daily (Last dose: 07/07/2016 09:00) 6. ipratropium-albuterol 0.5 mg-3 mg(2.5 mg base)/3 mL Inhl nebu 3 mL 4 times per day (Last dose: 07/07/2016 19:00) 7. Symbicort inhalation 2 puffs 2 times per day 8. Vitamin D Oral 90891 unit weekly - PMHx: COPD; Hypertension; Hypothyroidism; - Family history: Not pertinent. - Social history: Smoking status: Patient uses tobacco products, current every day smoker. No barriers to communication noted, The patient speaks fluent Honduran, Speaks appropriately for age. - : The pt / caregiver states he / she is not on anticoagulants. Home medication list is obtained from the patient. - Exposure Risk Screening:: None identified. - Code Status:: pt states DNR : although does not have it in writing. . - Advance directive:: Yes. Vital Signs: 07/07 19:08 BP 145 / 69; Pulse 104; Resp 32; Temp 98.2; Pulse Ox 94% on 4 lpm NC; Weight 65.77 kg / ttb 145 lbs (R); Height 5 ft. 2 in. (157.48 cm); Pain 0/10; 19:37 BP 143 / 61 (auto/); ttb 19:38 Pulse 90 MON; Pulse Ox 100% ; ttb 19:59 BP 130 / 60 (auto/); ttb 20:00 Pulse 96 MON; Pulse Ox 87% ; ttb 20:12 Pulse 98 MON; Resp 32; Temp 97.7; Pulse Ox 88% on 4 lpm NC; Pain 2/10; ttb 20:20 Pulse 110 MON; ttb 20:30 Pulse 100 MON; Pulse Ox 93% ; ttb 20:45 Pulse 96 MON; Pulse Ox 90% ; ttb 21:00 Pulse 102 MON; Pulse Ox 90% ; ttb 21:06 Pulse 96 MON; Resp 30; Temp 97.7(O); Pulse Ox 90% on 4 lpm NC; Pain 0/10; ttb 21:06 BP 121 / 56; ttb 19:08 Body Mass Index 26.52 (65.77 kg, 157.48 cm) ttb MDM: 19:06 Furosemide 80 mg IVP once ordered. ke 19:06 Solu-MEDROL 125 mg IVP once ordered. ke 19:06 -Blood Culture (Adults Only), peripheral from different site, or from device/port/PICC ke etc. if present ordered. 19:06 Chief Operating Engineer/Pulse Ox/q 15 min VS ordered. ke 19:06 IV Saline Lock ordered. ke 19:06 Oxygen at 4L/Min NC or Home dosage ordered. ke 19:06 Rhythm Strip to chart ordered. ke 19:06 Albuterol-Ipratropium 1 neb Nebulizer every 20 minutes x3 ordered. ke 19:06 Call Respiratory ordered. ke 19:08 -Arterial Blood Gas Ordered. EDMS 19:08 B-Type Natiuretic Peptide Ordered. EDMS 19:08 Basic Metabolic Profile Ordered. EDMS 19:08 CBC with Diff Ordered. EDMS 19:08 Cardiac Injury Profile Ordered. EDMS 19:08 Troponin Ordered. EDMS 19:08 -Blood Culture Ordered. EDMS 19:08 Chest, 1 View Ordered. EDMS 19:08 ECG WITH READING ER PHYS+CARDIAG ordered. EDMS 19:08 Call Respiratory complete. jmb 19:12 Lactic Acid (Oro tube on ice) Ordered. EDMS 19:15 -Blood Culture (Adults Only), peripheral from different site, or from device/port/PICC jlm etc. if present complete. 19:15 BLOOD CULTURES Ordered. EDMS 19:39 RBC MORPH PROF NO CHARGE Ordered. EDMS 19:41 cefTRIAXone 1 grams IVPB once over 30 mins; dilute in 50mL of NS or D5W ordered. ke 19:41 azithromycin 500 mg IVPB once over 1 hrs; dilute in 250mL of D5W or NS ordered. ke 19:44 BED REQUEST+ADM ordered. EDMS 19:48 LEGIONELLA ANTIGEN URINE Ordered. EDMS 19:48 URINE STREP PNEUMONIAE ANTIGEN Ordered. EDMS 19:48 CBC WITH DIFFERENTIAL Ordered. EDMS 19:49 BASIC METABOLIC PROFILE Ordered. EDMS 19:49 INFLUENZA A&B RAPID ANTIGEN Ordered. EDMS 19:49 SPUTUM CULTURE AND GRAM STAIN Ordered. EDMS 19:49 PHYSICAL THERAPY EVAL & TREAT ordered. EDMS 19:50 Admission / Observation Status ordered. EDMS 19:50 Admission / Observation Status ordered. EDMS 19:51 ARTERIAL BLOOD GAS Ordered. EDMS 19:53 RESPIRATORY PANEL Ordered. EDMS 19:53 MRSA SCREEN Ordered. EDMS 19:55 COPD DIET ordered. EDMS 19:56 CARDIAC MARKER PANEL Ordered. EDMS 20:32 Financial registration complete. [email or web address] 20:33 [facility] Payment Agreement was scanned into [employer] and attached to record. [email or web address] 21:05 CARDIAC MARKER PANEL Ordered. EDMS 07/08 07:57 T-Sheet-- Draft Copy was scanned into [employer] and attached to record. [facility] 07/09 08:53 Trend VS was scanned into [employer] and attached to record. lg 08:54 ECG/EKG was scanned into [employer] and attached to record. lg Administered Medications: 07/07 19:25 Drug: Furosemide 80 mg [furosemide 10 mg/mL injection solution (8 mL)] Route: IVP; tm5 Site: left antecubital; 20:00 Follow up: Response: No Adverse Reaction ttb 19:25 Drug: Solu-MEDROL 125 mg [Solu-Medrol 500 mg intravenous solution (125 mg)] Route: IVP; tm5 Site: left antecubital; 20:00 Follow up: Response: No Adverse Reaction ttb 19:30 Drug: Albuterol-Ipratropium 1 neb [ipratropium-albuterol 0.5 mg-3 mg(2.5 mg base)/3 mL jc3 nebulization soln (1 neb)] Route: Nebulizer; 19:38 Drug: Albuterol-Ipratropium 1 neb [ipratropium-albuterol 0.5 mg-3 mg(2.5 mg base)/3 mL jc3 nebulization soln (1 neb)] Route: Nebulizer; 19:46 Drug: Albuterol-Ipratropium 1 neb [ipratropium-albuterol 0.5 mg-3 mg(2.5 mg base)/3 mL jc3 nebulization soln (1 neb)] Route: Nebulizer; 20:00 Drug: cefTRIAXone 1 grams [ceftriaxone 1 gram solution for injection] Route: IVPB; tm5 Infused Over: 30 mins; Site: left antecubital; 20:44 Follow up: Response: No Adverse Reaction; IV Status: Completed infusion ttb 20:44 Drug: NS 0.9% 250 ml, azithromycin 500 mg Route: IVPB; Infused Over: 1 hrs; Site: left ttb antecubital; Delivery: Pump; 21:11 Follow up: IV Status: Infusion continued upon admit ttb Signatures: Dispatcher [employer] EDMS Estefany Snyder, Reg Reg lg Geovany Raya, DIRECTOR CLINICAL DATA DIRECTOR CLINICAL DATA Vale Gonzalez, RN RN [id number] Arcelia Barnard RN RN Geronimo Rodriguez RN RN jmEda Snyder, Skid Wrapper Unit jlm Tracey Harrison, Reg Reg [id number] Nydia Cui Joseph [id number] Tabitha Lopez RN tm5 The chart was reviewed and I authenticate all verbal orders and agree with the evaluation and treatment provided.Corrections: (The following items were deleted from the chart) 20:07 19:56 LACTIC ACID LEVEL, LACTATE ordered. EDMS EDMS 20:18 19:56 LACTIC ACID LEVEL, LACTATE ordered. EDMS EDMS 20:20 19:58 IRON (FE) ordered. EDMS EDMS 20:20 19:59 TOTAL IRON BINDING CAPACIT ordered. EDMS EDMS 20:20 19:59 RETICULOCYTE COUNT ordered. EDMS EDMS 20:21 19:59 FERRITIN ordered. EDMS EDMS 21:03 19:56 CARDIAC MARKER PANEL ordered. EDMS EDMS Attachments: 20:33 [facility] Payment Agreement [email or web address] 07/08 07:57 T-Sheet-- Draft Copy [facility] 08:54 ECG/EKG lg Chart Complete MTDD
[2016-07-10] VITALS: BP 111/56
[2016-07-10] MEDS: IPRATROPIUM 0.02% SOLN 0.5MG/2.5 ML NEB INH SCH ×8 (00:09→23:35)
[2016-07-10] MEDS: LEVALBUTEROL 1.25 MG/0.5 ML CONCENTRATE NEB INH SCH ×8 (00:09→23:35)
[2016-07-10 04:00] VITALS: BP 118/55
[2016-07-10 05:31] LABS: BLOOD UREA NITROGEN 30 MG/DL (7-18); CALCIUM LEVEL 8.2 MG/DL (8.8-10.2); CHLORIDE LEVEL 90 MEQ/L (98-107); CREATININE FOR GFR 0.69 MG/DL (0.55-1.02); GLOMERULAR FILTRATION RATE > 60.0 (>32); GLUCOSE, FASTING 133 MG/DL (83-110); POTASSIUM SERUM 3.7 MEQ/L (3.5-5.1); SODIUM LEVEL 141 MEQ/L (136-145)
[2016-07-10 05:32] LABS: BASO % 0.1 % (0.0-1.0); EOS % 0.2 % (0.0-3.0); LARGE UNSTAINED CELL % 0.1 % (0.0-4.0); LYMPH # 0.2 K/mm3 (1.5-4.5); LYMPH % 2.4 % (24.0-44.0); MEAN CORPUSCULAR HEMOGLOBIN 19.9 pg (27.0-33.0); MEAN CORPUSCULAR HGB CONC 27.2 g/dl (32.0-36.5); MEAN CORPUSCULAR VOLUME 73.3 fl (80.0-96.0); MONO # 0.2 K/mm3 (0.0-0.8); MONO % 2.2 % (0.0-5.0); NEUTROPHILS # 9.1 K/mm3 (1.8-7.7); NEUTROPHILS % 94.9 % (36.0-66.0); PLATELET COUNT, AUTOMATED 192 k/mm3 (150-450); RED CELL DISTRIBUTION WIDTH 17.2 % (11.5-14.5); WHITE BLOOD COUNT 9.6 K/mm3 (4.0-10.0)
[2016-07-10 05:42] LABS: CARBON DIOXIDE LEVEL 54 MEQ/L (21-32)
[2016-07-10] MEDS: LEVOTHYROXINE 0.075 MG TAB (75 MCG) PO SCH (06:22)
[2016-07-10] MEDS: SLF 3 ML SYR IV SCH ×3 (06:23→20:37)
[2016-07-10 08:00] VITALS: BP 125/68
[2016-07-10] MEDS: ASCORBIC ACID 500 MG TAB PO SCH ×2 (08:16→18:42)
[2016-07-10] MEDS: methylPREDNISolone INJ 125 MG/2 ML VIAL (J2930) IV SCH (08:16)
[2016-07-10] MEDS: SYMBICORT 160/4.5MCG INHALER 6GM INH SCH ×2 (08:56→19:30)
[2016-07-10] MEDS: ENOXAPARIN 30 MG/0.3 ML SYR (J1650) SC SCH (09:00)
[2016-07-10] MEDS: NICOTINE 7 MG/24 HR TRANSDERMAL TD SCH (09:23)
[2016-07-10] MEDS: FERROUS SULFATE 325MG TAB PO SCH (09:23)
[2016-07-10] MEDS: OMEPRAZOLE 20 MG CAP PO SCH (09:23)
[2016-07-10] MEDS: DOCUSATE SODIUM 100 MG CAP PO SCH ×2 (09:23→20:37)
[2016-07-10] MEDS: FUROSEMIDE 40 MG TAB PO SCH (09:23)
[2016-07-10 12:00] VITALS: BP 136/69
--- NOTE | 2016-07-10 16:19 | IPNPDOC ---
Subjective Date Seen The patient was seen on 07/10/16. Subjective Chief Complaint/HPI The patient is a 80-year-old female admitted with a reason for visit of Cap ( Community Acquired Pneumonia). Events since last encounter no acute events overnight. reported improved respiration. Denied chest pain, n/ v. General: Denies: Chills, Fatigue Constitutional: Denies: Chills, Fever, Malaise, Night Sweats, Weakness Eyes: Denies: Pain, Vision change ENT: Denies: Ear Pain, Head Aches Skin: Denies: Lesions, Rash Pulmonary: Reports: Cough, Dyspnea Cardiovascular: Denies: Chest Pain, Palpitations Gastrointestinal: Denies: Nausea, Vomiting Neurological: Denies: Numbness, Weakness Objective Physical Examination General Exam: Positive: Alert, Cooperative, No Acute Distress Eye Exam: Positive: Conjunctiva & lids normal, EOMI, PERRLA, Negative: Sclera icteric ENT Exam: Positive: Atraumatic Chest Exam: Positive: Diminished, Other (mild wheezes, minimal bibasilar crackles), Rhonchi, Wheezing Heart Exam: Positive: Rate Normal, Regular Rhythm Telemetry: Positive: No significant arrhythmia Abdomen Exam: Positive: Normal bowel sounds, Soft, Negative: Tenderness Extremity Exam: Negative: Edema Psych Exam: Positive: Oriented x 3 Assessment /Plan Problems (1) Acute on chronic respiratory failure with hypoxia and hypercapnia Status: Acute Problem Specific Plan: Consult Specialist, Monitor Clinically, Repeat Labs Problem Text: Was requiring NIPPV, refused NIPPV, Uses 3L at baseline. abg appreciated DNR/DNI con't to smoke, understand risk of worsening respiration and early . stating that he has no quality now anyway (2) COPD (chronic obstructive pulmonary disease) Status: Acute Problem Specific Plan: Consult Specialist, Monitor Clinically Problem Text: copd exacerbation. ceftriaxone and azithromycin day #2 Respiratory regimen: symbicort, atrovent, xopenex IV steroids, tapered as per above consult pulmonary, poor compliance complicating care (3) CAP (community acquired pneumonia) Status: Acute Discussed With: Patient Problem Specific Plan: Monitor Clinically, Repeat Labs Problem Text: Continue with ceftriaxone/azithromycin day #2 MRSA screen, sputum cultures/gram stain incentive spirometry (4) HTN (hypertension) Status: Chronic Problem Specific Plan: Monitor Clinically Problem Text: continue lasix (5) Hypothyroidism Status: Chronic Problem Text: continue synthroid (6) Nicotine addiction Status: Chronic Problem Text: nicotine patch while inpatient counseling provided, reported will continue to smoke understand risk of respiratory failure and (7) Anemia Status: Chronic Plan/VTE VTE Prophylaxis Ordered?: Yes (lovenox) Plan/Urinary Catheter Urinary Catheter: D/C Roberts (voding trial) Plan Diet: Continue Current Therapy: PT, OT Respiratory: Wean Oxygen Diagnostics: Repeat Labs in AM, Obtain Cultures Disposition transfer to [facility] surg with continuos pulse ox, pt, potential DC in 24-48 hr VS, I&O, 24H, Fishbone Vital Signs/I&O Vital Signs Date Time Temp Pulse Resp B/P Pulse Ox O2 Delivery O2 Flow Rate FiO2 07/10/16 12:00 98.1 81 28 136/69 93 Nasal Cannula 5.0 07/10/16 00:00 40 I&O- Last 24 Hours up to 6 AM 07/10/16 06:00 Intake Total 1525 ml Output Total 1650 ml Balance -125 ml Laboratory Data 24H LABS Laboratory Tests 2 07/10/16 05:05: Anion Gap , White Blood Count 9.6, Red Blood Count 4.03, Hemoglobin 8.0L, Hematocrit 29.6L, Mean Corpuscular Volume 73.3L, Mean Corpuscular Hemoglobin 19.9L, Mean Corpuscular Hemoglobin Concent 27.2L, Red Cell Distribution Width 17.2H, Platelet Count 192, Neutrophils (%) (Auto) 94.9H, Lymphocytes (%) (Auto) 2.4L, Monocytes (%) (Auto) 2.2, Eosinophils (%) (Auto) 0.2, Basophils (%) (Auto ) 0.1, Neutrophils # (Auto) 9.1H, Lymphocytes # (Auto) 0.2L, Monocytes # (Auto) 0.2, Eosinophils # (Auto) 0.0, Basophils # (Auto) 0.0, Blood Urea Nitrogen 30H, Creatinine 0.69, Sodium Level 141, Potassium Level 3.7, Chloride Level 90L, Carbon Dioxide Level 54H, Calcium Level 8.2L, Glomerular Filtration Rate > 60.0 , Large Unclassified Cells # 0.0, Large Unclassified Cells % 0.1 CBC/BMP Laboratory Tests 07/10/16 05:05 Calcium Level 8.2 L, Red Blood Count 4.03, Mean Corpuscular Volume 73.3 L, Mean Corpuscular Hemoglobin 19.9 L, Mean Corpuscular Hemoglobin Concent 27.2 L, Red Cell Distribution Width 17.2 H, Neutrophils (%) (Auto) 94.9 H, Lymphocytes (%) ( Auto) 2.4 L, Monocytes (%) (Auto) 2.2, Eosinophils (%) (Auto) 0.2, Basophils (% ) (Auto) 0.1, Neutrophils # (Auto) 9.1 H, Lymphocytes # (Auto) 0.2 L, Monocytes # (Auto) 0.2, Eosinophils # (Auto) 0.0, Basophils # (Auto) 0.0 Microbiology Microbiology 07/08/16 Blood Culture - Preliminary, Resulted No growth after 24 hours . All specim... 07/08/16 Blood Culture - Preliminary, Resulted No growth after 24 hours . All specim... 07/07/16 Blood Culture - Preliminary, Resulted No Growth after 48 hours. All Specime... 07/07/16 Blood Culture - Final, Complete Staphylococcus Hominis Ssp Huy 07/09/16 Stool Occult Blood ([facility]) - Final, Complete 07/07/16 MRSA Screen - Final, Complete 07/07/16 Respiratory Virus Panel (PCR) ([facility]) - Final, Complete 07/07/16 Influenza Virus Type A Antigen - Final, Complete 07/07/16 Influenza Virus Type B Antigen - Final, Complete JOAN HORN MD Jul 10, 2016 16:19
[2016-07-10] MEDS: methylPREDNISolone INJ 40 MG/1 ML VIAL (J2920) IV SCH (16:20)
[2016-07-10 16:40] VITALS: BP 120/79
[2016-07-10] MEDS: cefTRIAXone SOD 2 GM in D5W MINI-BAG PLUS 50 ML IV SCH (18:42)
--- NOTE | 2016-07-10 19:29 | ECHO ---
DATE OF PROCEDURE: 07/09/2016 REFERRING PHYSICIAN: Dr. Corona and Dr. Alexander. INDICATION: Gram-positive bacteremia, endocarditis. HEIGHT: 157 cm WEIGHT: 75 kg. DIMENSIONS: IVS: 1.3 LV: 3.9 LVPW: 1.3 LA: 4.4 Aorta: 2.7 FINDINGS: The study is a very poor technical quality with very limited views. Left ventricle is of normal size and likely normal contractility with overall hyperdynamic left ventricle (LV) systolic function. Left atrium is enlarged. Right ventricle and right atrium were poorly visualized. The aortic valve is at least partially sclerotic but the visualization was limited. There are heavy degenerative abnormalities of mitral valve with mitral annular calcifications, but visualization of the valve itself was poor. I certainly cannot rule out presence of vegetation on either valve. Tricuspid and pulmonic valves were seen barely at all. No pericardial effusion is noted. Inferior vena cava was not seen. Aortic root is normal. Aortic arch and abdominal aorta were not well visualized. Limited Doppler evaluation of aortic valve reveals no significant stenosis or insufficiency. There is also no significant mitral insufficiency, but mitral inflow pattern was not investigated. Tricuspid and pulmonic valves were not seen. Diastolic function was not elevated. CONCLUSIONS: 1. Study is a very limited technical quality. 2. Normal LV size with mild left ventricular hypertrophy (LVH) and hyperdynamic LV systolic function. 3. Degenerative abnormalities of aortic and mitral valves but without significant functional impairment. 4. Right-sided chambers and valves were not well seen. 5. Unable to estimate central venous pressure and pulmonary artery pressure. COMMENTS: Subacute bacterial endocarditis (SBE) prophylaxis is not recommended (unless definite endocarditis is present). If high clinical suspicion for endocarditis is present and transesophageal echocardiogram would alter the management, it certainly may need to be performed because current study was not sensitive enough. MTDD
[2016-07-10] MEDS: AZITHROMYCIN INJ 500 MG, VIAL MATE ADAPTER 1 EACH in D5W 250 ML IV SCH (20:36)
[2016-07-10 22:00] VITALS: BP 149/63
[2016-07-10] MEDS: ALPRAZolam 0.25 MG TAB PO PRN (22:17)
[2016-07-10] MEDS: ACETAMINOPHEN TAB 650MG DOSE (2X325MG) PO PRN (22:17)
[2016-07-11] MEDS: methylPREDNISolone INJ 40 MG/1 ML VIAL (J2920) IV SCH ×2 (00:56→09:10)
[2016-07-11] MEDS: LEVALBUTEROL 1.25 MG/0.5 ML CONCENTRATE NEB INH SCH ×3 (02:30→11:29)
[2016-07-11] MEDS: IPRATROPIUM 0.02% SOLN 0.5MG/2.5 ML NEB INH SCH ×3 (02:30→11:29)
[2016-07-11] MEDS: LEVOTHYROXINE 0.075 MG TAB (75 MCG) PO SCH (05:39)
[2016-07-11] MEDS: SLF 3 ML SYR IV SCH ×2 (05:40→13:27)
[2016-07-11 06:00] VITALS: BP 144/69
[2016-07-11 07:03] LABS: BASO % 0.1 % (0.0-1.0); EOS % 0.4 % (0.0-3.0); LARGE UNSTAINED CELL % 0.3 % (0.0-4.0); LYMPH # 0.3 K/mm3 (1.5-4.5); LYMPH % 3.5 % (24.0-44.0); MEAN CORPUSCULAR HEMOGLOBIN 20.1 pg (27.0-33.0); MEAN CORPUSCULAR HGB CONC 27.3 g/dl (32.0-36.5); MEAN CORPUSCULAR VOLUME 73.6 fl (80.0-96.0); MONO # 0.3 K/mm3 (0.0-0.8); MONO % 4.4 % (0.0-5.0); NEUTROPHILS # 7.1 K/mm3 (1.8-7.7); NEUTROPHILS % 91.4 % (36.0-66.0); PLATELET COUNT, AUTOMATED 186 k/mm3 (150-450); RED CELL DISTRIBUTION WIDTH 17.3 % (11.5-14.5); WHITE BLOOD COUNT 7.8 K/mm3 (4.0-10.0)
[2016-07-11 07:15] LABS: BLOOD UREA NITROGEN 32 MG/DL (7-18); CALCIUM LEVEL 8.6 MG/DL (8.8-10.2); CHLORIDE LEVEL 91 MEQ/L (98-107); CREATININE FOR GFR 0.67 MG/DL (0.55-1.02); GLOMERULAR FILTRATION RATE > 60.0 (>32); GLUCOSE, FASTING 107 MG/DL (83-110); MAGNESIUM LEVEL 2.4 MG/DL (1.8-2.4); POTASSIUM SERUM 3.7 MEQ/L (3.5-5.1); SODIUM LEVEL 140 MEQ/L (136-145)
[2016-07-11] MEDS: SYMBICORT 160/4.5MCG INHALER 6GM INH SCH (07:18)
[2016-07-11 07:51] LABS: CARBON DIOXIDE LEVEL 50 MEQ/L (21-32)
[2016-07-11] MEDS ORDERED: FERR325T PO (08:25)
[2016-07-11] MEDS ORDERED: KEFL500C7 PO (08:25)
[2016-07-11] MEDS ORDERED: COLA100C PO (08:25)
[2016-07-11] MEDS ORDERED: PRED10TA PO (08:25)
[2016-07-11] MEDS: NICOTINE 7 MG/24 HR TRANSDERMAL TD SCH (09:00)
[2016-07-11] MEDS: ENOXAPARIN 30 MG/0.3 ML SYR (J1650) SC SCH (09:10)
[2016-07-11] MEDS: DOCUSATE SODIUM 100 MG CAP PO SCH (09:11)
[2016-07-11] MEDS: OMEPRAZOLE 20 MG CAP PO SCH (09:11)
[2016-07-11] MEDS: ASCORBIC ACID 500 MG TAB PO SCH (09:11)
[2016-07-11] MEDS: FERROUS SULFATE 325MG TAB PO SCH (09:11)
[2016-07-11] MEDS: FUROSEMIDE 40 MG TAB PO SCH (09:11)
--- NOTE | 2016-07-11 19:19 | DSES ---
DATE OF ADMISSION: 07/07/2016 DATE OF DISCHARGE: 07/11/2016 KETTLE FIRER: Dr. Conrad Gil PRIMARY CARE PROVIDER: Dr. Michael Galan FINAL DIAGNOSES: 1. Acute on chronic hypoxic hypercarbic respiratory failure. 2. Acute chronic obstructive pulmonary disease (COPD) exacerbation possibly secondary to community-acquired bacterial pneumonia. 3. Hypertension. 4. Hypothyroidism. 5. Smoking. 6. Anemia, chronic. HISTORY OF PRESENT ILLNESS: This is an 80-year-old female patient with underlying medical history of COPD, chronic hypoxia on three liters oxygen at home, hypertension, hypothyroidism, presented to the emergency department with shortness of breath. Patient says that she was making supper earlier in the evening when she could not breathe. She used her medical alert device to call for emergency medical service (EMS). They evaluated her at home and thought that she would be better evaluated in the emergency room and transferred to [facility]. She had not tried any medication at home to relieve her shortness of breath. HOSPITAL COURSE: In the hospital, patient was initially found to be hypercarbic, respiratory failure with acute on chronic hypercarbia and hypoxic, initially placed on bilevel positive airway pressure (BiPAP). Antibiotics Rocephin and azithromycin started. Steroids started. Methicillin-resistant Staphylococcus aureus (MRSA) screening, sputum culture, gram staining. Incentive spirometry, Symbicort, nebulizer treatment. Pulmonology consulted. Patient was weaned off BiPAP and counseling provided. Nicotine patch provided to the patient. Home medications were restarted. Patient's condition gradually improved but patient has been refusing BiPAP, stating that she wants to be DO NOT RESUSCITATE/DO NOT INTUBATE and has reported that she will continue to smoke, she is aware of the risks of respiratory failure and . She said that she has lived this long and she has no quality of life at this point and does not want to change her lifestyle at this advanced age and patient also wanted to be discharged. Patient is aware of risk of , respiratory failure. Patient denies any suicidality. Patient wanted to spend the remainder of her life at home. Currently patient is tolerating oral. Passed physical therapy. Reported much more comfortable than before. Ready for discharge. VITAL SIGNS: Temperature 96, respirations 19, pulse 88, blood pressure 149/63, pulse oximetry 91% on three liters nasal cannula. LABORATORY DATA: WBC 7.8, hemoglobin and hematocrit 8.2/29.9, platelets 186. Chemistry: Sodium 140, potassium 3.7, chloride 91, bicarbonate 50, BUN 32, creatinine 0.67. DISCHARGE MEDICATIONS: - Keflex 500 mg by mouth twice a day for five more days - Colace 100 mg by mouth twice a day - ferrous sulfate 325 mg by mouth daily - prednisone 10 mg tablet; six tablets by mouth daily for 3 days, then four tablets by mouth daily for 3 days, then three tablets by mouth daily for 3 days, then two tablets by mouth daily for 3 days, then one tablet by mouth daily for 3 days, then stop Home medications continued: - DuoNebs four times a day as needed - Symbicort 160/4.5 mcg inhalation twice a day - Lasix 40 mg by mouth daily - Synthroid 75 mcg by mouth daily - omeprazole 40 mg by mouth daily - vitamin D 50,000 units by mouth weekly DISCHARGE INSTRUCTIONS: Patient is instructed to followup with primary care provider in 7 days, return to the hospital if symptoms worsen, continue home oxygen, counseling provided. Unfortunately, patient is unwilling to change her lifestyle.
[2016-07-12 00:06] LABS: ORGANISM ID Not indicated. (.); SPECIMEN SOURCE Urine (.)
== END 2016-07-11 14:17 | disposition home or self-care (01) | DRG 193 ==
LOC: M ED 18:54 → M ED INP 19:47 → M ICU 21:19 → M MS5PR 07-10 16:35
PROVIDERS: ADMIT General Practice; ATTEND Hospitalist
DX: J15.9 Unspecified bacterial pneumonia (principal); J96.22 Acute and chronic respiratory failure with hypercapnia; J96.21 Acute and chronic respiratory failure with hypoxia; J44.1 Chronic obstructive pulmonary disease with (acute) exacerbation; J44.0 Chronic obstructive pulmonary disease with (acute) lower respiratory infection; I10 Essential (primary) hypertension; F17.210 Nicotine dependence, cigarettes, uncomplicated; D64.9 Anemia, unspecified; E03.9 Hypothyroidism, unspecified; Z66 Do not resuscitate; Z99.81 Dependence on supplemental oxygen; Z79.899 Other long term (current) drug therapy; Z79.51 Long term (current) use of inhaled steroids; Z88.8 Allergy status to other drugs, medicaments and biological substances; Z82.49 Family history of ischemic heart disease and other diseases of the circulatory system; Z79.52 Long term (current) use of systemic steroids

== ENCOUNTER 2016-07-25 19:26 | Inpatient (IN) | payer MEDICARE, OTHER ==
[~2016-07-25] VITALS: Ht 157.5 cm; Wt 67.4 kg
[2016-07-25] MEDS: ADVAIR DISKUS 250/50 INH PWD INH SCH (06:21)
[~2016-07-25 19:26] MED LIST changes: +COLA100C PO; +KEFL500C7 PO
[2016-07-25 19:56] LABS: ABG BASE EXCESS 18.8 (-2.0-2.0); ABG HCO3 48.2 MEQ/L (22.0-26.0); ABG PARTIAL PRESSURE O2 61.5 mmHg (75.0-100.0); ABG STANDARD HCO3 42.7 MEQ/L (22.0-26.0); ABG TOTAL CO2 51.1 MEQ/L (23.0-31.0); ABG pH (ARTERIAL) 7.321 UNITS (7.350-7.450)
[2016-07-25 19:58] LABS: ABG PARTIAL PRESSURE CO2 95.4 mmHg (35.0-45.0)
[2016-07-25 20:00] VITALS: BP 163/65
[2016-07-25] MEDS ORDERED: FUROSEMIDE 100 MG/10 ML VIAL (J1940) IV ONE (20:00)
[2016-07-25] MEDS ORDERED: NITROGLYCERIN 2% OINT 1 GM *U/D* PKT TOP ONE (20:00)
[2016-07-25] MEDS ORDERED: dexameTHASONE 20 MG/5 ML VIAL (J1100) IV ONE (20:00)
[2016-07-25] MEDS: IPRATROPIUM 0.5MG/ALBUTEROL 2.5MG INH SOL UD 3ML (DUONEB)(J7620) NEB PRN ×3 (20:01→20:31)
[2016-07-25 20:02] LABS: INR 0.94
[2016-07-25 20:06] LABS: MEAN CORPUSCULAR HEMOGLOBIN 20.5 pg (27.0-33.0); MEAN CORPUSCULAR HGB CONC 26.8 g/dl (32.0-36.5); MEAN CORPUSCULAR VOLUME 76.4 fl (80.0-96.0); PLATELET COUNT, AUTOMATED 232 k/mm3 (150-450); WHITE BLOOD COUNT 7.7 K/mm3 (4.0-10.0)
[2016-07-25 20:15] LABS: ANION GAP 2 MEQ/L (8-16); BLOOD UREA NITROGEN 21 MG/DL (7-18); CALCIUM LEVEL 8.5 MG/DL (8.8-10.2); CARBON DIOXIDE LEVEL 44 MEQ/L (21-32); CHLORIDE LEVEL 94 MEQ/L (98-107); GLOMERULAR FILTRATION RATE > 60.0 (>32); GLUCOSE, FASTING 98 MG/DL (83-110); POTASSIUM SERUM 4.3 MEQ/L (3.5-5.1); SODIUM LEVEL 140 MEQ/L (136-145)
[2016-07-25] MEDS ORDERED: FUROSEMIDE 40 MG/4 ML VIAL (J1940) IV ONE (20:15)
--- NOTE | 2016-07-25 20:18 | REP ---
AP PORTABLE CHEST: 07/25/2016. Clinical history: Dyspnea. Comparison: Portable chest 07/07/2016, 11/17/2015, 09/13/2015, CT chest 04/27/2014. Findings: Cardiomegaly with left atrial and ventricular enlargement. Some right heart enlargement again seen. Some volume loss in the right hemithorax. There is chronic linear fibrotic and atelectatic change right mid lung zone. Epicardial fat pad prominent on CT in the right side of the heart and the right heart is enlarged as well contributing to the findings in the right base. There is vascular redistribution with some interstitial edema. No gross effusion, but small effusions are difficult to exclude posteriorly. Tortuous calcified aorta, unchanged. Impression: 1. Cardiomegaly with left and right heart enlargement. Some vascular redistribution and interstitial edema noted. No gross effusion, but small effusions difficult to exclude on this portable semi erect chest. 2. Chronic linear fibrotic change right mid lung zone and opacification right base, largely due to the prominent epicardial fat pad and the right heart enlargement seen on a 2014 CT. Signed by Cristofer Glass MD 07/26/2016 09:12 A
[2016-07-25 20:19] LABS: ANISOCYTOSIS 1+; BANDS 2 % (< 11); HYPOCHROMASIA 2+; POLYCHROMASIA 1+
[2016-07-25 20:20] LABS: MICROCYTOSIS 1+
[2016-07-25] MEDS ORDERED: IPRATROPIUM 0.5MG/ALBUTEROL 2.5MG INH SOL UD 3ML (DUONEB)(J7620) NEB PRN (21:30)
[2016-07-25] MEDS ORDERED: PRED10TA PO (21:47)
[2016-07-25] MEDS ORDERED: FERR325T PO (21:47)
[2016-07-25] MEDS ORDERED: DOCU100C PO (21:47)
[2016-07-25] MEDS ORDERED: KETO0.05 TOP (21:47)
--- NOTE | 2016-07-25 22:00 | ECGEPIP ---
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
--- NOTE | 2016-07-25 22:22 | HPEPDOC ---
General Date of Admission Jul 25, 2016 at 21:20 Chief Complaint The patient is a 80-year-old female Presented to the hospital with complaints of shortness of breath. History of Present Illness Patient is a 80 year old female with a PMHx of COPD on 3L O2 at home, HTN, Hypothyroidism, Chronic anemia who presented to the ER with complaints of shortness of breath that worsened over 24 hours. Patients son notes that he saw his mother yesterday and she was fine. When he returned to visit her today, she was extremely short of breath and had increased her oxygen to 6 liters. She was advised to come to the ER at that point. Upon questioning, patient notes that she has only experienced shortness of breath. She has a baseline cough that has not changed in character. She denies any fever or chills at home. She denies any orthopnea, night time awakenings because of shortness of breath, denies any leg swelling. She does report that she is compliant with all her medications and diet. She reports that she gets all her meals from meals on wheels and it is a low salt diet. She was recently discharge from [facility] on 07/11 for COPD exacerbation. She has been discharged with a tapering dose of steroids and Keflex. She has been taking these medications as prescribed. She was advised to follow up with her occupational therapist rehab manager after discharge but failed to make the appointment because of weather. She denies any nausea, vomiting, chest pain, palpitations, abdominal pain, constipation, diarrhea or urinary symptoms. Home Medications Scheduled Budesonide/Formoterol (Symbicort 160-4.5 Mcg/Act) 60 Puff/Inhaler Aers 2 PUFF INH BID (Reported) Docusate Sodium (Docusate Sodium) 100 Mg Cap 100 MG PO BID (Reported) Ferrous Sulfate (Ferrous Sulfate) 325 Mg Tab 325 MG PO DAILY (Reported) Furosemide (Furosemide) 40 Mg Tab 40 MG PO DAILY (Reported) Levothyroxine Sodium (Synthroid) 75 Mcg Tab 75 MCG PO QAM (Reported) Omeprazole (Omeprazole) 40 Mg Cap 40 MG PO DAILY (Reported) Prednisone (Prednisone) 10 Mg Tab 10 MG PO DAILY (Reported) PATIENT HAS 3 MORE DAYS ON CURRENT PRESCRIPTION Scheduled PRN Albuterol/Ipratropium (Ipratropium [place]/Albut 0.5-2.5 (3) mg/3Ml) 1 Samir Samir 1 SAMIR INH QID PRN PRN SOB/WHEEZING (Reported) Ketoconazole (Ketoconazole) 1 Dose/15 Gm Cream 1 DOSE TOP BID PRN PRN ITCHING ( Reported) Allergies Coded Allergies: KEITH Inhibitors (Verified Allergy, Severe, angioedema, 09/15/15) Bupropion (Verified Allergy, Unknown, 08/13/12) Past Medical History Medical History COPD on 3L O2 at home, HTN, Hypothyroidism, Chronic anemia Surgical History Left lumpectomy Family History - Non-contributory Social History - Denies the use of alcohol or illicit drugs; Smoker of >60 years at 1ppd - Denies recent travel or sick contacts - Lives alone Review of Symptoms Other systems Constitutional: Denies weight loss, change in appetite, or recent trauma Eyes: No visual changes or eye pain Ears, Nose, Throat: Denies nose bleeds, or difficulty swallowing Cardiovascular: Denies chest pain, sweating, or orthopnea Respiratory: Positive cough, wheezing, and shortness of breath GI: Sunny nausea, vomiting, abdominal pain, diarrhea or constipation : Denies pain with urination or frequency Musculoskeletal: Denies joint pain or swelling Neuro / Psych: Denies muscle weakness or sensory loss Skin: No skin rashes noted All other review of systems negative; otherwise stated in history of present illness Vital Signs - Vitals: BP 169/78, HR 101, RR 32, Sat 91%Venti@50%, Temp 97.6F - General: Lying in bed, No acute distress, Speaking in full sentences, AAOx3 - HEENT: NC, AT, PERRLA, EOMI - CVS: RRR, +S1S2, - Murmurs / rubs / gallops - Lungs: Poor inspiratory effort, +Expiratory wheezing bilaterally - Abdomen: Soft, Non-distended, Tenderness at lower quadrants, +Midline hernia, + Bowel sounds x 4 - Extremities: + PPx4, No lower extremity edema, No calf tenderness - Neuro: No focal motor or sensory deficit - Skin: No visible rashes Laboratory Data Labs 24H Laboratory Tests 2 07/25/16 19:42: Activated Partial Thromboplast Time 24.9L, Anion Gap 2L, Anisocytosis 1+, B- Type Natriuretic Peptide 368H, Band Neutrophils 2, White Blood Count 7.7, Red Blood Count 4.28, Hemoglobin 8.8L, Hematocrit 32.7L, Mean Corpuscular Volume 76.4L, Mean Corpuscular Hemoglobin 20.5L, Mean Corpuscular Hemoglobin Concent 26.8L, Red Cell Distribution Width 19.0H, Platelet Count 232, Neutrophils (%) ( Auto) , Lymphocytes (%) (Auto) , Monocytes (%) (Auto) , Eosinophils (%) (Auto) , Basophils (%) (Auto) , Neutrophils # (Auto) , Lymphocytes # (Auto) , Monocytes # (Auto) , Eosinophils # (Auto) , Basophils # (Auto) , Blood Urea Nitrogen 21H, Creatinine 0.70, Sodium Level 140, Potassium Level 4.3, Chloride Level 94L, Carbon Dioxide Level 44H, Calcium Level 8.5L, Total Creatine Kinase 36, Creatine Kinase MB 2.8, Creatine Kinase MB Relative Index 7.77H, Glomerular Filtration Rate > 60.0, Hypochromasia 2+, Lactic Acid (Sepsis) 1.0, Large Unclassified Cells # , Large Unclassified Cells % , Lymphocytes (Manual) 23, Microcytosis 1+, Monocytes (Manual) 4, Neutrophils 71, Platelet Estimate NORMAL , Polychromasia 1+, Prothromb Time International Ratio 0.94, Prothrombin Time 12.7, Troponin I 0.03 07/25/16 19:47: Arterial Blood pH 7.321L, Arterial Blood Partial Pressure CO2 95.4*H, Arterial Blood Partial Pressure O2 61.5L, Arterial Blood Total CO2 51.1H, Arterial Blood HCO3 48.2H, Arterial Blood Base Excess 18.8H, Arterial Blood Oxygen Saturation 92.1L, Blood Gas Bicarbonate Standard 42.7H 07/25/16 20:38: Urine Amorphous Sediment , Urine Appearance CLEAR, Urine Color YELLOW, Urine pH 5.0, Urine Specific [place] 1.013, Urine Protein NEGATIVE, Urine Glucose (UA) NEGATIVE, Urine Ketones NEGATIVE, Urine Urobilinogen 0.2, Urine Bilirubin NEGATIVE, Urine Leukocyte Esterase NEGATIVE, Urine Bacteria (Auto) NEGATIVE, Urine Blood 1+H, Urine Calcium Carbonate Cryst(Auto) , Urine Calcium Oxalate Cryst (Auto) , Urine Calcium Phosphate [place] (Auto) , Urine Cellular Casts , Urine Cystine Crystals , Urine Granular Casts (Auto) , Urine Hyaline Casts (Auto ) 0, Urine Leucine Crystals , Urine Mucus (Auto) SMALL, Urine Nitrite NEGATIVE, Urine Oval Fat Bodies (Auto) , Urine RBC (Auto) 6H, Urine Renal Epithelial Cells , Urine Sperm (Auto) , Urine Squamous Epithelial Cells 1, Urine Transitional Epithelial Cells , Urine Trichomonas (Auto) , Urine Triple Phosphate Cryst (Auto) , Urine Tyrosine Crystals , Urine Uric Acid Crystals ( Auto) , Urine WBC (Auto) 2, Urine Waxy Casts (Auto) , Urine Yeast-Like Cells ( Auto) CBC/BMP Laboratory Tests 07/25/16 19:42 Calcium Level 8.5 L, Total Creatine Kinase 36, Red Blood Count 4.28, Mean Corpuscular Volume 76.4 L, Mean Corpuscular Hemoglobin 20.5 L, Mean Corpuscular Hemoglobin Concent 26.8 L, Red Cell Distribution Width 19.0 H, Neutrophils (%) ( Auto) , Lymphocytes (%) (Auto) , Monocytes (%) (Auto) , Eosinophils (%) (Auto) , Basophils (%) (Auto) , Neutrophils # (Auto) , Lymphocytes # (Auto) , Monocytes # (Auto) , Eosinophils # (Auto) , Basophils # (Auto) Microbiology Microbiology 07/25/16 Blood Culture, Received Pending 07/25/16 Urine Culture, Received Pending Plan / VTE VTE Prophylaxis Ordered?: Yes Plan / Urinary Catheter Reason for insertion/continuin: Critical Pt monitoring Plan Plan Shortness of breath likely 2/2 acute on chronic hypoxic respiratory failure - Presented with shortness of breath, increase in oxygen requirements, no change in baseline cough - Physical reveals expiratory wheezing bilaterally, no evidence of JVD, crackles or lower extremity edema - Patient received in ABG in the ER which revealed significant CO2 retention and some degree of acidosis - Patient is a DNR / DNI and actively refused to have a BIPAP trial patient is aware of the risks of - s/p Lasix 60 IV and Dexamethasone 10mg IV in the ER - CXR with minimal signs of fluid overload - Will start duoneb breathing treatments, solumedrol and advair while inpatient - Will repeat ABG in AM will keep on telemetry for now - Will need to discuss goals of care with family and patient Chronic microcytic anemia likely 2/2 iron deficiency - hg currently at baseline - c/w ferrous sulfate - will follow HTN - ECHO done 06/2016 without any evidence of systolic or diastolic function however it was a poor study - c/w furosemide with holding parameters Hypothyroidism - c/w levothyroxine Gastrointestinal prophylaxis - c/w omeprazole DVT prophylaxis - Will start joex MARTA LOZANO MD Jul 25, 2016 22:22
[2016-07-25 22:45] VITALS: BP 112/52
[2016-07-25 23:56] VITALS: O2SAT 91
[2016-07-26] VITALS (10 sets, daily range): BP systolic 88–130; BP diastolic 46–67; O2SAT 95–98
[2016-07-26] MEDS: ALPRAZolam 0.25 MG TAB PO PRN (00:50)
[2016-07-26] MEDS: IPRATROPIUM 0.5MG/ALBUTEROL 2.5MG INH SOL UD 3ML (DUONEB)(J7620) NEB SCH ×4 (01:40→19:27)
[2016-07-26] MEDS: methylPREDNISolone INJ 125 MG/2 ML VIAL (J2930) IV SCH ×2 (04:25→12:04)
[2016-07-26 05:39] LABS: ALBUMIN 2.9 GM/DL (3.2-5.2); ALBUMIN/GLOBULIN RATIO 0.91 (1.00-1.93); ALKALINE PHOSPHATASE 121 U/L (45-117); ALT/SGPT 14 U/L (12-78); ANION GAP 5 MEQ/L (8-16); AST/SGOT 11 U/L (15-37); BILIRUBIN,TOTAL 0.4 MG/DL (0.2-1.0); BLOOD UREA NITROGEN 24 MG/DL (7-18); CALCIUM LEVEL 8.4 MG/DL (8.8-10.2); CARBON DIOXIDE LEVEL 43 MEQ/L (21-32); CHLORIDE LEVEL 90 MEQ/L (98-107); CREATININE FOR GFR 0.79 MG/DL (0.55-1.02); GLOMERULAR FILTRATION RATE > 60.0 (>32); GLUCOSE, FASTING 180 MG/DL (83-110); MAGNESIUM LEVEL 1.9 MG/DL (1.8-2.4); POTASSIUM SERUM 4.3 MEQ/L (3.5-5.1); SODIUM LEVEL 138 MEQ/L (136-145); TOTAL PROTEIN 6.1 GM/DL (6.4-8.2)
[2016-07-26 05:40] LABS: EOS % 0.2 % (0.0-3.0); LARGE UNSTAINED CELL % 0.2 % (0.0-4.0); LYMPH # 0.2 K/mm3 (1.5-4.5); LYMPH % 2.5 % (24.0-44.0); MEAN CORPUSCULAR HEMOGLOBIN 20.4 pg (27.0-33.0); MEAN CORPUSCULAR HGB CONC 27.1 g/dl (32.0-36.5); MEAN CORPUSCULAR VOLUME 75.2 fl (80.0-96.0); MONO # 0.1 K/mm3 (0.0-0.8); MONO % 1.5 % (0.0-5.0); NEUTROPHILS # 8.8 K/mm3 (1.8-7.7); NEUTROPHILS % 95.6 % (36.0-66.0); PLATELET COUNT, AUTOMATED 223 k/mm3 (150-450); RED CELL DISTRIBUTION WIDTH 19.4 % (11.5-14.5); WHITE BLOOD COUNT 9.2 K/mm3 (4.0-10.0)
[2016-07-26 06:09] LABS: ABG BASE EXCESS 21.1 (-2.0-2.0); ABG HCO3 48.8 MEQ/L (22.0-26.0); ABG PARTIAL PRESSURE O2 72.2 mmHg (75.0-100.0); ABG STANDARD HCO3 45.2 MEQ/L (22.0-26.0); ABG TOTAL CO2 51.2 MEQ/L (23.0-31.0); ABG pH (ARTERIAL) 7.412 UNITS (7.350-7.450)
[2016-07-26 06:12] LABS: ABG PARTIAL PRESSURE CO2 78.4 mmHg (35.0-45.0)
[2016-07-26] MEDS: LEVOTHYROXINE 0.075 MG TAB (75 MCG) PO SCH (06:44)
[2016-07-26] MEDS: ADVAIR DISKUS 250/50 INH PWD INH SCH ×3 (07:49→19:28)
[2016-07-26] MEDS: ENOXAPARIN 40 MG/0.4 ML SYRINGE (J1650) SC SCH (08:31)
[2016-07-26] MEDS: DOCUSATE SODIUM 100 MG CAP PO SCH ×2 (08:32→20:25)
[2016-07-26] MEDS: FERROUS SULFATE 325MG TAB PO SCH (08:32)
[2016-07-26] MEDS: OMEPRAZOLE 20 MG CAP PO SCH (08:32)
[2016-07-26] MEDS ORDERED: PANTOPRAZOLE 40MG TAB (PROTONIX) PO SCH (09:00)
[2016-07-26] MEDS ORDERED: PREVNAR 13 VACCINE SYRINGE (CPT CODE:90670) IM SCH (11:30)
[2016-07-26] MEDS: FUROSEMIDE 40 MG TAB PO SCH (12:42)
[2016-07-26] MEDS: TIOTROPIUM INHALER/CAPSULE (SPIRIVA) INH SCH (15:31)
--- NOTE | 2016-07-26 16:00 | REP ---
PORTABLE CHEST X-RAY: REASON: Dyspnea. COMPARISON: 07/25/2016 obtained at 8 p.m. The technique utilized in obtaining the radiograph has magnified the cardiac silhouette and accentuated the interstitial markings. Cardiomediastinal silhouette and lung sim are completely unchanged. No acute patchy parenchymal opacities or pleural effusions have developed. There is no change in osseous structures. IMPRESSION: Stable chest. Signed by Alexis Ashley DO 07/26/2016 04:56 P
--- NOTE | 2016-07-26 17:30 | CR ---
DATE OF CONSULTATION: 07/26/2016 CONSULTATION REQUESTED BY: Dr. Holguin REASON FOR CONSULTATION: Chronic obstructive pulmonary disease (COPD) exacerbation. HISTORY OF PRESENT ILLNESS: Ms. Pinzon is an 80-year-old female with multiple past medical history including hypoxic and hypercapnic respiratory failure, advanced emphysema, essentially end stage, who presented to the emergency room due to experiencing shortness of breath for the past 24 hours. The patient lives alone at home; however, the patient has nurses who visit her two times per week. The patient is on 3 liters of oxygen 24 hours. According to admission report, the patient started to become out of breath. The patient's son was visiting her at that time, who increased the oxygenation to 6 liters; however, the dyspnea did not change and that was the time that he called the emergency medical services (EMS). The patient was recently discharged from the hospital on 07/11/2016 for COPD exacerbation and was discharged with steroids and Keflex. The patient denies any sick contacts; however, the patient expressed that she is still smoking. The patient denies fever, chills, or night sweats, however, the patient has chronic cough that is sometimes productive with the white sputum; however, the patient did not notice any exacerbation of her cough. The patient expressed that at her baseline the patient can only ambulate about 2 to 3 steps before becoming out of breath. The patient does not remember what her previous job was. The patient has not recently traveled and not been exposed to tuberculosis. PAST MEDICAL HISTORY: 1. Chronic obstructive bronchitis secondary to 60+ pack year of cigarette smoking, Gold classification IV (very severe). Exacerbation in fall 2009 for cor pulmonale. 2. Hypertension. 3. Hypothyroidism. 4. Hypoxemia. Continue on oxygen. 5. Ankle fracture requiring hospitalization in April 2014. PAST SURGICAL HISTORY: 1. Left lumpectomy. HOME MEDICATIONS: - Symbicort 106/4.5 mcg/act two puffs twice a day - Lisinopril 10 mg one by mouth daily - Ventolin HFA 108 mcg/act two puffs four times a day - omeprazole 40 mg one by mouth daily - levothyroxine sodium 50 mcg one by mouth daily - sertraline HCL 100 mg one pill daily - oxygen 3 liters continuous - Drisdol 50,000 units one by mouth weekly - furosemide 40 mg one pill every day ALLERGIES: No known drug allergies. SOCIAL HISTORY: The patient expressed that she lives alone. The patient has a nurse who is visiting her twice a week. The patient also expressed that her son does the shopping for her. The patient expressed that she has started smoking at age 17, on average about one pack per day. The patient still smokes. The patient denies illicit drug use. The patient also denies a history of alcohol usage. The patient has not traveled outside of the [employer] [place] [employer]; however, the patient has traveled many years ago to [place] and [place]. The patient does not remember what occupation she had before. FAMILY HISTORY: The patient has one son who is healthy. The patient has one brother and two sisters. The patient's brother is healthy for his age. The patient's parents ; however, the patient does not remember if they due to illness or diseases. REVIEW OF SYSTEMS: GENERAL: The patient denies fevers, chills, night sweats, weight loss, weight gain. HEENT: The patient denies acute vision or hearing changes. The patient denies sinusitis or problem with chewing food or drinking water. NECK: The patient denies lumps or bumps or decreased range of motion of the neck. LUNGS: The patient expressed that she has been experiencing shortness of breath. The patient is on 3 liters 24 hours. The patient also has chronic cough, which sometimes produces white sputum. The patient sometimes expresses that she notices wheezing. HEART: The patient denies palpitations, racing or skipping heart beat, chest pain. ABDOMEN: The patient denies abdominal pain, nausea, vomiting, diarrhea, constipation, melena, hematochezia or hemoptysis. NEUROLOGIC: The patient denies a history of TIA, CVA or seizure type activity. PHYSICAL EXAMINATION: VITAL SIGNS: Temperature 98.6, pulse 92, respiratory rate 12, blood pressure 124/64, pulse oximetry 90%. The patient is on non-invasive positive pressure ventilation (NIPPV), FiO2 35. GENERAL APPEARANCE: The patient was lying in bed in no acute distress. The patient was sleeping; however, the patient was awake, alert, and oriented to time, place, and person. HEENT: Normocephalic, atraumatic. Pupils are equal. Oral mucosa is moist. Airway is class III. NECK: Soft, supple. No lymphadenopathy or thyromegaly. CHEST: The patient has kyphosis with hyperresonance to percussion. LUNGS: The patient has increased AP diameter and marked decrease in breath intensity throughout. There is a borderline prolongation to the expiratory phase. No wheezing, rhonchi or rubs noticed. HEART: The patient has distant heart sounds, however, has regular rate and rhythm. Normal S1, S2. ABDOMEN: Obese. Positive bowel sounds in all quadrants. No hepatosplenomegaly was appreciated. No tenderness with palpation. EXTREMITIES: The patient has +2 pulses in both lower extremities. The patient has trace of edema in both lower extremities; however, no cyanosis or clubbing appreciated. NEUROLOGIC: Cranial nerves II through XII intact. No focal deficiencies. LABORATORY DATA: White blood cells 9.2, red blood cells 4.16, hemoglobin 8.5, hematocrit 31.3, MCV 75.2, MCH 20.4, MCHC 27.1, RDW 19.4, platelet count 223, neutrophil percentage 95.6, lymphocyte percentage 2.5, monocyte percentage 1.5, eosinophil percentage 0.2, basophil percentage 0, leukocyte percentage 0.2. ABG bicarbonate 45.2, ABG pH 7.412, ABG PCO2 78.4, ABG PO2 72.2, ABG HCL3 48.8, ABG total CO2 51.2, ABG O2 saturation 94.9, ABG base excess 21.1. Sodium 138, potassium 4.3, chloride 90, carbon dioxide 43, anion gap 5, BUN 24, creatinine 0.79, GFR more than 60, fasting glucose 180, calcium 8.4, magnesium 1.9, total bilirubin 0.4, AST 11, ALT 14, alkaline phosphatase 121, total creatinine kinase 25, CK-MB 1.8, CK-MB relative index 7.2, troponin I 0.02, total protein 6.1, albumin 2.9. IMAGING TECHNIQUES: Chest x-ray, which was done on 07/25/2016 shows cardiomegaly with a left and right heart enlargement, some vascular redistribution and interstitial edema. No gross effusion. However, small effusion difficult to exclude. Also, chronic linear fibrotic changes, right mid lung zone, and opacification in the right base, largely due to prominent precordial fat pad and the right heart enlargement seen on CT, which was done in 2013. ASSESSMENT AND PLAN: Acute on chronic respiratory failure, both hypoxic and hypercapnic, end stage obstructive lung disease. At the time of admission, the patient had ABG done, which shows respiratory acidemia; however, after the patient was on noninvasive bilevel, ABG was repeated, which shows compensating metabolic alkalosis. The patient has Gold classification IV and end stage obstructive lung disease, which could contribute to the presentation; however, the patient has pulmonary edema and congestive heart failure (CHF), and her recent echocardiogram that was done on 07/10/2016 shows normal left ventricular size with mild left ventricular hypertrophy and hyperdynamic left ventricle systolic function. However, the study was very limited and it was not able to estimate central venous pressure and pulmonary artery pressure. Even though the patient has an extensive pulmonology history, however, we believe that mostly the patient's presentation is cardiac issues. Due to the poor quality of the echocardiogram, we recommend that echocardiogram be repeated again. Also, we have changed the Solu-Medrol to prednisone 40 mg daily and added Spiriva inhaler. Also, we have ordered chest x-ray for reevaluation, which will be compared with yesterday's chest x-ray. We will stop the noninvasive bilevel. We appreciate your consult and please contact us for additional questions. My preceptor for this patient encounter was Dr. Cole. The preceptor was physically present in the building during the encounter and was fully available. As needed, all aspects of the patient interview, examination, medical decision making process, and medical care plan development were reviewed and approved by the preceptor. The preceptor is aware and concurs with the plan as stated in the body of this note and will attest to such by his/her cosignature. WOLF
--- NOTE | 2016-07-26 19:03 | IPN ---
DATE: 07/26/2016 SUBJECTIVE: Ms. Pinzon was somewhat agitated overnight. Did receive a dose of Xanax and is a little bit tired now, although she appears to be in no respiratory distress. She is not a useful historian. OBJECTIVE: VITAL SIGNS: Temperature is 98.6, pulse 92, respiratory rate 12, blood pressure 124/64, 90% on bilevel positive airway pressure (BiPAP) at 35% FiO2. Intake and output notable for negative fluid balance of minus 800. Weight 72.3 kg with a body mass index of 29.2. GENERAL: She is sleepy but does arouse to physical stimuli. Is not answering questions in a useful manner. HEENT: Mucous membranes are moist. NECK: Supple. LUNGS: Breathing is symmetrically diminished with an I to E ratio of 1:4. HEART: Distant sounding. Normal S1, S2. ABDOMEN: Soft, nontender. Hypoactive bowel sounds. EXTREMITIES: No significant lower extremity edema. LABORATORY DATA: White count 9.2, hemoglobin 8.5, and platelets of 223. Sodium is 138, potassium 4.3, chloride 90, bicarbonate 43, BUN 24, creatinine 0.79. ABG this morning is 7.41, 78, 72, and 48 with an oxygen saturation of 95%. MICROBIOLOGY: Blood culture times one and urine culture are pending. ASSESSMENT: This is an 80-year-old with acute respiratory failure most likely due to chronic obstructive pulmonary disease (COPD) exacerbation. PLAN: 1. Respiratory. The patient continues on BiPAP. I discussed this case in person with Dr. Cole who has agreed to see the patient today in consultation. Continue with antibiotics. Continue with steroids. We will add antibiotics. Will hold her oral Lasix this morning as her blood pressure has been intermittently somewhat soft. 2. The patient has chronic anemia. Did discuss this issue with the patient's primary care doctor by phone, Dr. Galan, who has asked that we obtain stool studies which I believe is reasonable to look for occult blood. I would also consider, based on the patient's history, giving iron sucrose during her stay as she is iron deficient based on previous studies. 3. The patient has hypertension. The patient has no evidence of systolic or diastolic dysfunction on an echocardiogram done in June. I am going to hold Lasix for now. 4. The patient has a history of hypothyroidism. 5. The patient has gastroesophageal reflux disease (GERD). 6. The patient has appropriate deep venous thrombosis (DVT) prophylaxis.
--- NOTE | 2016-07-26 19:36 | ECHO ---
DATE OF PROCEDURE: 07/26/2016 AGE: 80 GENDER: Female HEIGHT: 62 inches WEIGHT: 159 pounds BODY SURFACE AREA 1.73 m2 INPATIENT: Intensive Care Unit (ICU) Room 3201. REFERRING PHYSICIAN: Dr. Cornell Holguin INDICATION: Dyspnea. MEDICATIONS 2-D MEASUREMENTS: RV - 4.3 cm LV - 4.9 cm Septum 1.3 cm Posterior wall 1.3 cm Aortic root 2.6 cm LA - 4.8 cm LVEF 65% DOPPLER MEASUREMENTS: AV - 1.8 m/s LVOT- 1.45 m/s LVOT diameter- 1.6 cm MV-E 140 A- 190 E/A ratio 0.8 Early mitral deceleration time 394 ms Mean MV gradient 5 mmHg PV - 1.2 m/s IVC- 1.9 cm COMMENTS: Multifocal atrial rhythm (not atrial fibrillation) without intraventricular conduction disturbance. Technically difficult study in light of the patient's body habitus/pulmonary disease but diagnostically useful information was still obtained. Prominently dilated left atrium but normal left ventricular size. At least mildly dilated right heart chambers. Left ventricle (LV) wall thickness was mildly increased symmetrically. On real-time imaging from the parasternal and subcostal projections wall motion was symmetrical and hyperkinetic. Fairly severe mitral annular calcification with reduced leaflet excursion but no posterior systolic buckling. Three equal size aortic cusps with moderate cusp thickening but adequate cusp separation. Normal aortic root size. No apparent intracardiac mass or pericardial effusion. Color flow Doppler study taken from the parasternal and apical projection showed mild to moderate aortic, very mild mitral and mild tricuspid insufficiency. Guided continuous wave Doppler of her aortic valve showed a normal peak systolic velocity against LV outflow tract obstruction. Pulsed and continuous wave Doppler of her LV inflow tract taken from the apical four-chamber projection showed a peak diastolic filling velocity upper limits of normal to mildly increased. She also had a markedly long early mitral deceleration time and the transvalvular gradient that suggest least a mild degree of mitral stenosis. Pulsed and continuous wave Doppler of her tricuspid valve was attempted but we could not clearly visualize the valve or a clear spectral pattern for analysis. Similarly we attempted to use guided continuous wave Doppler of her tricuspid valve to estimate her right ventricular systolic pressure but could not obtain a clear spectral pattern. Her inferior vena cava was upper limits of normal at 1.9 cm with virtually absent respiratory collapse suggestive an elevated central venous pressure. CONCLUSIONS: Technically difficult study. Mild concentric left ventricle hypertrophy with hyperkinetic wall motion. Moderately dilated left atrium with probable elevated mean left atrial pressure. At least mildly dilated right heart chambers with preserved systolic function. Suspected at least moderate pulmonary hypertension but could not substantiate this with Doppler. IVC upper limits of normal in size with absent respiratory collapse consistent with an elevated central venous pressure of at least 15 mmHg. Moderate aortic valvular sclerosis without stenosis but mild - moderate insufficiency. Fairly severe mitral annular calcification with mild stenosis and very mild insufficiency. MTDD
[2016-07-26] MEDS: ACETAMINOPHEN TAB 650MG DOSE (2X325MG) PO PRN (20:25)
[2016-07-27] VITALS (7 sets, daily range): BP systolic 102–154; BP diastolic 53–70; O2SAT 93
[2016-07-27] MEDS: IPRATROPIUM 0.5MG/ALBUTEROL 2.5MG INH SOL UD 3ML (DUONEB)(J7620) NEB SCH ×4 (01:35→21:00)
[2016-07-27 05:33] LABS: EOS % 0.2 % (0.0-3.0); LARGE UNSTAINED CELL # 0.1 K/mm3 (0.0-0.4); LARGE UNSTAINED CELL % 0.8 % (0.0-4.0); LYMPH # 0.9 K/mm3 (1.5-4.5); MEAN CORPUSCULAR HEMOGLOBIN 20.6 pg (27.0-33.0); MEAN CORPUSCULAR HGB CONC 27.4 g/dl (32.0-36.5); MONO # 0.4 K/mm3 (0.0-0.8); NEUTROPHILS # 8.1 K/mm3 (1.8-7.7); PLATELET COUNT, AUTOMATED 214 k/mm3 (150-450); WHITE BLOOD COUNT 9.5 K/mm3 (4.0-10.0)
[2016-07-27 05:41] LABS: ALBUMIN 2.7 GM/DL (3.2-5.2); ALBUMIN/GLOBULIN RATIO 0.93 (1.00-1.93); ALKALINE PHOSPHATASE 103 U/L (45-117); ALT/SGPT 16 U/L (12-78); ANION GAP 4 MEQ/L (8-16); AST/SGOT 11 U/L (15-37); BILIRUBIN,TOTAL 0.4 MG/DL (0.2-1.0); BLOOD UREA NITROGEN 28 MG/DL (7-18); CALCIUM LEVEL 8.5 MG/DL (8.8-10.2); CARBON DIOXIDE LEVEL 43 MEQ/L (21-32); CHLORIDE LEVEL 94 MEQ/L (98-107); CREATININE FOR GFR 0.61 MG/DL (0.55-1.02); GLOMERULAR FILTRATION RATE > 60.0 (>32); GLUCOSE, FASTING 94 MG/DL (83-110); MAGNESIUM LEVEL 2.1 MG/DL (1.8-2.4); SODIUM LEVEL 141 MEQ/L (136-145); TOTAL PROTEIN 5.6 GM/DL (6.4-8.2)
[2016-07-27] MEDS: LEVOTHYROXINE 0.075 MG TAB (75 MCG) PO SCH (06:30)
[2016-07-27] MEDS: ADVAIR DISKUS 250/50 INH PWD INH SCH ×2 (07:38→21:00)
[2016-07-27] MEDS: TIOTROPIUM INHALER/CAPSULE (SPIRIVA) INH SCH (07:38)
[2016-07-27] MEDS: ENOXAPARIN 40 MG/0.4 ML SYRINGE (J1650) SC SCH (09:07)
[2016-07-27] MEDS: FERROUS SULFATE 325MG TAB PO SCH (09:07)
[2016-07-27] MEDS: predniSONE 20 MG TAB PO SCH (09:07)
[2016-07-27] MEDS: OMEPRAZOLE 20 MG CAP PO SCH (09:07)
[2016-07-27] MEDS: FUROSEMIDE 40 MG TAB PO SCH (09:07)
[2016-07-27] MEDS: DOCUSATE SODIUM 100 MG CAP PO SCH ×2 (09:07→20:18)
[2016-07-27] MEDS: ACETAMINOPHEN TAB 650MG DOSE (2X325MG) PO PRN ×3 (09:08→23:51)
--- NOTE | 2016-07-28 00:28 | IPN ---
DATE: 07/27/2016 Ms. Pinzon is feeling much better today. She was off bilevel positive airway pressure (BiPAP) last night. Still somewhat short of breath, has not really been out of bed, is tolerating a diet, has some cough, not producing sputum. Temperature is 97.2, pulse 72, respiratory rate 22, blood pressure 154/60, 93% on 3 liters. Intake and output notable for a negative fluid balance of -365. No bowel movements. Weight is 71.4 kg. She is awake, appropriately interactive, much more interactive, of course, than yesterday. Mucous membranes moist. Neck is supple. Breathing is symmetrical. I:E ratio is 1:4. Decreased aeration. No wheezes. No accessory muscle use. Speaking in sentences. Radial pulse is 2+. Capillary refill is less than 2 seconds. Abdomen is soft, doughy, nontender. Hemoglobin is 8.2. BUN is 28, creatinine is 0.6. Blood culture was negative at 24 hours. Urine culture is pending. ASSESSMENT: This is an 80-year-old with acute respiratory failure due to chronic obstructive pulmonary disease (COPD) exacerbation. PLAN: 1. Respiratory. The patient is currently off bilevel positive airway pressure (BiPAP), being transferred to medical-surgical. Steroids are weaned as of yesterday's instructions. Currently holding Lasix. 2D echocardiogram has been resulted and shows mild concentric left ventricular hypertrophy, mildly dilated left atrium, dilated right heart chambers with preserved systolic function and probably moderate pulmonary hypertension, although it was a complicated study. Mild to moderate aortic insufficiency, mild mitral stenosis and mild insufficiency. Will restart her Lasix. 2. The patient has chronic anemia and has made no stools, has not had a recent colonoscopy. May benefit from iron sucrose. Will delay that today and consider it tomorrow. 3. The patient has a history of hypertension, restarting Lasix. 4. The patient has hypothyroidism. 5. The patient has gastroesophageal reflux disease (GERD). 6. The patient has appropriate deep vein thrombosis (DVT) prophylaxis.
[2016-07-28] MEDS: IPRATROPIUM 0.5MG/ALBUTEROL 2.5MG INH SOL UD 3ML (DUONEB)(J7620) NEB SCH ×4 (01:31→18:55)
[2016-07-28 05:30] VITALS: BP 134/68
[2016-07-28] MEDS: LEVOTHYROXINE 0.075 MG TAB (75 MCG) PO SCH (05:55)
[2016-07-28 06:52] LABS: BASO % 0.1 % (0.0-1.0); EOS # 0.1 K/mm3 (0.0-0.50); EOS % 0.9 % (0.0-3.0); LARGE UNSTAINED CELL # 0.1 K/mm3 (0.0-0.4); LARGE UNSTAINED CELL % 1.1 % (0.0-4.0); LYMPH # 1.4 K/mm3 (1.5-4.5); LYMPH % 17.8 % (24.0-44.0); MEAN CORPUSCULAR HEMOGLOBIN 20.6 pg (27.0-33.0); MEAN CORPUSCULAR HGB CONC 27.6 g/dl (32.0-36.5); MEAN CORPUSCULAR VOLUME 74.5 fl (80.0-96.0); MONO # 0.3 K/mm3 (0.0-0.8); MONO % 4.1 % (0.0-5.0); NEUTROPHILS # 5.8 K/mm3 (1.8-7.7); NEUTROPHILS % 75.9 % (36.0-66.0); PLATELET COUNT, AUTOMATED 214 k/mm3 (150-450); RED CELL DISTRIBUTION WIDTH 20.1 % (11.5-14.5); WHITE BLOOD COUNT 7.6 K/mm3 (4.0-10.0)
[2016-07-28 07:08] LABS: ALBUMIN 2.7 GM/DL (3.2-5.2); ALKALINE PHOSPHATASE 104 U/L (45-117); ALT/SGPT 14 U/L (12-78); ANION GAP 5 MEQ/L (8-16); AST/SGOT 11 U/L (15-37); BILIRUBIN,TOTAL 0.4 MG/DL (0.2-1.0); BLOOD UREA NITROGEN 28 MG/DL (7-18); CALCIUM LEVEL 8.6 MG/DL (8.8-10.2); CARBON DIOXIDE LEVEL 43 MEQ/L (21-32); CHLORIDE LEVEL 94 MEQ/L (98-107); GLOMERULAR FILTRATION RATE > 60.0 (>32); GLUCOSE, FASTING 81 MG/DL (83-110); MAGNESIUM LEVEL 2.2 MG/DL (1.8-2.4); POTASSIUM SERUM 3.2 MEQ/L (3.5-5.1); SODIUM LEVEL 142 MEQ/L (136-145); TOTAL PROTEIN 5.7 GM/DL (6.4-8.2)
[2016-07-28] MEDS: TIOTROPIUM INHALER/CAPSULE (SPIRIVA) INH SCH (07:14)
[2016-07-28] MEDS: ADVAIR DISKUS 250/50 INH PWD INH SCH ×2 (07:15→20:24)
[2016-07-28 09:45] VITALS: BP 110/62
[2016-07-28] MEDS: OMEPRAZOLE 20 MG CAP PO SCH (09:58)
[2016-07-28] MEDS: FERROUS SULFATE 325MG TAB PO SCH (09:59)
[2016-07-28] MEDS: predniSONE 20 MG TAB PO SCH (09:59)
[2016-07-28] MEDS: ENOXAPARIN 40 MG/0.4 ML SYRINGE (J1650) SC SCH (09:59)
[2016-07-28] MEDS: ACETAMINOPHEN TAB 650MG DOSE (2X325MG) PO PRN ×2 (09:59→18:38)
[2016-07-28] MEDS: DOCUSATE SODIUM 100 MG CAP PO SCH ×2 (09:59→20:21)
[2016-07-28] MEDS: FUROSEMIDE 40 MG TAB PO SCH (10:34)
[2016-07-28 14:00] VITALS: BP 117/57
[2016-07-28 20:00] VITALS: BP 110/60
[2016-07-29] MEDS: IPRATROPIUM 0.5MG/ALBUTEROL 2.5MG INH SOL UD 3ML (DUONEB)(J7620) NEB SCH ×4 (02:19→19:00)
[2016-07-29] MEDS: LEVOTHYROXINE 0.075 MG TAB (75 MCG) PO SCH (05:34)
[2016-07-29 05:59] VITALS: BP 119/58
[2016-07-29 06:39] LABS: BASO % 0.1 % (0.0-1.0); EOS # 0.1 K/mm3 (0.0-0.50); EOS % 1.7 % (0.0-3.0); LARGE UNSTAINED CELL # 0.1 K/mm3 (0.0-0.4); LYMPH # 1.2 K/mm3 (1.5-4.5); LYMPH % 16.7 % (24.0-44.0); MONO # 0.4 K/mm3 (0.0-0.8); MONO % 5.3 % (0.0-5.0); NEUTROPHILS # 5.2 K/mm3 (1.8-7.7); NEUTROPHILS % 75.3 % (36.0-66.0); PLATELET COUNT, AUTOMATED 209 k/mm3 (150-450); RED CELL DISTRIBUTION WIDTH 20.4 % (11.5-14.5); WHITE BLOOD COUNT 6.9 K/mm3 (4.0-10.0)
[2016-07-29 06:45] LABS: ALBUMIN 2.6 GM/DL (3.2-5.2); ALBUMIN/GLOBULIN RATIO 0.93 (1.00-1.93); ALKALINE PHOSPHATASE 100 U/L (45-117); ALT/SGPT 12 U/L (12-78); ANION GAP 4 MEQ/L (8-16); AST/SGOT 10 U/L (15-37); BILIRUBIN,TOTAL 0.3 MG/DL (0.2-1.0); BLOOD UREA NITROGEN 25 MG/DL (7-18); CALCIUM LEVEL 8.3 MG/DL (8.8-10.2); CARBON DIOXIDE LEVEL 43 MEQ/L (21-32); CHLORIDE LEVEL 95 MEQ/L (98-107); CREATININE FOR GFR 0.69 MG/DL (0.55-1.02); GLOMERULAR FILTRATION RATE > 60.0 (>32); GLUCOSE, FASTING 90 MG/DL (83-110); MAGNESIUM LEVEL 2.2 MG/DL (1.8-2.4); POTASSIUM SERUM 3.1 MEQ/L (3.5-5.1); SODIUM LEVEL 142 MEQ/L (136-145); TOTAL PROTEIN 5.4 GM/DL (6.4-8.2)
[2016-07-29] MEDS: TIOTROPIUM INHALER/CAPSULE (SPIRIVA) INH SCH (08:12)
[2016-07-29] MEDS: ADVAIR DISKUS 250/50 INH PWD INH SCH ×2 (08:12→19:34)
[2016-07-29] MEDS: ACETAMINOPHEN TAB 650MG DOSE (2X325MG) PO PRN ×2 (08:30→22:15)
[2016-07-29] MEDS: predniSONE 20 MG TAB PO SCH (08:30)
[2016-07-29] MEDS: OMEPRAZOLE 20 MG CAP PO SCH (08:30)
[2016-07-29] MEDS: FUROSEMIDE 40 MG TAB PO SCH (08:30)
[2016-07-29] MEDS: ALPRAZolam 0.25 MG TAB PO PRN (08:33)
[2016-07-29] MEDS: DOCUSATE SODIUM 100 MG CAP PO SCH ×2 (08:33→20:23)
[2016-07-29] MEDS: FERROUS SULFATE 325MG TAB PO SCH (08:33)
[2016-07-29] MEDS: ENOXAPARIN 40 MG/0.4 ML SYRINGE (J1650) SC SCH (08:34)
[2016-07-29 08:40] VITALS: BP 126/57
[2016-07-29] MEDS ORDERED: ONDANSETRON 4 MG ORAL DISINTEGRATING TAB (S0181) PO PRN (09:45)
[2016-07-29] MEDS ORDERED: MOM 30ML SUSPENSION UDC PO PRN (09:45)
[2016-07-29] MEDS ORDERED: POTASSIUM CHLORIDE 10 MEQ SR TABLET PO ONE (12:00)
[2016-07-29 14:00] VITALS: BP 128/58
--- NOTE | 2016-07-29 17:56 | IPN ---
DATE: 07/28/2016 Ms. Pinzon is not feeling well today. She is quite uncomfortable in bed. The nurses have been turning her every two hours and she says she does not like that. She prefers to stay on her back. She is always short of breath, and at the same time she would like to go home. Temperature is 98.4, pulse 80, respiratory rate 18, blood pressure 110/62, 92% on three liters nasal cannula. Intake and output notable for a negative fluid balance of -1405, one bowel movement noted yesterday. She is awake, appropriately interactive, seems somewhat anxious. Mucous membranes are moist. Neck supple. Breathing is symmetrically diminished. IE ratio is 1:4. No wheezes appreciated throughout upper airway sounds. Heart is not tachycardic on my exam, not a regular rate and rhythm. Abdomen is soft, doughy, nontender. White cell count is 7.6, hemoglobin 8.8, platelets of 214. Sodium 142, potassium 3.2, chloride 94, carbon dioxide 43, BUN 28, creatinine 0.7. ASSESSMENT: This is an 80-year-old with acute respiratory failure due to chronic obstructive pulmonary disease (COPD) exacerbation. PLAN: 1. Respiratory. Patient seems to be relatively stable for a respiratory standpoint, although perhaps not back at her baseline. Continue on steroids, respiratory toilet. We did have to hold her Lasix this morning based on her blood pressure criteria. She has definitely shown improvement during her stay. 2. Chronic anemia. She did make a stool yesterday, but unfortunately it was not sent for study. Hemoglobin and hematocrit is stable. She may benefit from iron sucrose. She is still quite short of breath at this point, so should she have a reaction from the iron sucrose, it may become more complicated. Will consider iron sucrose on a daily basis. 3. History of hypertension. 4. Hypothyroidism. 5. Gastroesophageal reflux disease (GERD). 6. Appropriate deep vein thrombosis (DVT) prophylaxis.
[2016-07-29 22:00] VITALS: BP 111/55
[2016-07-30] MEDS: IPRATROPIUM 0.5MG/ALBUTEROL 2.5MG INH SOL UD 3ML (DUONEB)(J7620) NEB SCH ×4 (01:13→19:24)
--- NOTE | 2016-07-30 03:10 | IPN ---
DATE: 07/29/2016 Ms. Pinzon is feeling a little better this morning. She is more comfortable in bed. She thinks her breathing is a little easier. No complaints of pain or chest pain. Temperature is 97, pulse 86, respiratory rate 18, blood pressure 119/58, 95% on 3 liters. Intake and output notable for a positive fluid balance of 910. Weight 72.1 kg. Body mass index (BMI) 39.1. She is sleeping upon my arrival, but easily aroused, answering questions appropriately. Breathing is symmetrical. I:E ratio is 124, somewhat diminished throughout, but improved aeration from previous encounter. No wheezes. Heart is distant sounding, normal S1, S2, regular rate and rhythm. Abdomen is soft, doughy, nontender. White cell count is 6.9, hemoglobin 8.8 at baseline and his BUN is 25, creatine is 0.69 and potassium is 3.1. My assessment is as follows: This is an 80-year-old with acute respiratory failure due to chronic obstructive pulmonary disease exacerbation. Plan is as follows: 1. Respiratory. The patient had been on BiPAP. Oxygen has improved markedly. The patient is known to have moderate pulmonary hypertension by echocardiogram, but I believe this is slowly improving. She is on oral steroids at this point. 2. The patient has chronic anemia. She has made stools, none of which have been sent for stool studies. I guess I will reorder stool studies. 3. The patient has hypokalemia, which will be replaced. 4. The patient has a history of hypertension. 5. The patient has hypothyroidism. 6. The patient has gastroesophageal reflux disease (GERD). 7. The patient has appropriate deep vein thrombosis (DVT) prophylaxis.
[2016-07-30] MEDS: ACETAMINOPHEN TAB 650MG DOSE (2X325MG) PO PRN ×3 (05:34→20:27)
[2016-07-30] MEDS: LEVOTHYROXINE 0.075 MG TAB (75 MCG) PO SCH (05:34)
[2016-07-30 06:00] VITALS: BP 125/58
[2016-07-30 06:08] LABS: BASO % 0.1 % (0.0-1.0); EOS # 0.2 K/mm3 (0.0-0.50); EOS % 3.1 % (0.0-3.0); LARGE UNSTAINED CELL # 0.1 K/mm3 (0.0-0.4); LARGE UNSTAINED CELL % 1.3 % (0.0-4.0); LYMPH # 1.3 K/mm3 (1.5-4.5); LYMPH % 20.6 % (24.0-44.0); MEAN CORPUSCULAR HGB CONC 28.3 g/dl (32.0-36.5); MEAN CORPUSCULAR VOLUME 74.3 fl (80.0-96.0); MONO # 0.2 K/mm3 (0.0-0.8); MONO % 3.5 % (0.0-5.0); NEUTROPHILS # 4.7 K/mm3 (1.8-7.7); NEUTROPHILS % 71.6 % (36.0-66.0); PLATELET COUNT, AUTOMATED 195 k/mm3 (150-450); RED CELL DISTRIBUTION WIDTH 20.6 % (11.5-14.5); WHITE BLOOD COUNT 6.5 K/mm3 (4.0-10.0)
[2016-07-30 06:17] LABS: ADD MORPHOLOGY? YES
[2016-07-30 06:18] LABS: ALBUMIN 2.8 GM/DL (3.2-5.2); ALBUMIN/GLOBULIN RATIO 0.93 (1.00-1.93); ALKALINE PHOSPHATASE 104 U/L (45-117); ALT/SGPT 13 U/L (12-78); ANION GAP 5 MEQ/L (8-16); AST/SGOT 11 U/L (15-37); BILIRUBIN,TOTAL 0.4 MG/DL (0.2-1.0); BLOOD UREA NITROGEN 24 MG/DL (7-18); CALCIUM LEVEL 8.5 MG/DL (8.8-10.2); CARBON DIOXIDE LEVEL 39 MEQ/L (21-32); CHLORIDE LEVEL 96 MEQ/L (98-107); CREATININE FOR GFR 0.74 MG/DL (0.55-1.02); GLOMERULAR FILTRATION RATE > 60.0 (>32); GLUCOSE, FASTING 87 MG/DL (83-110); MAGNESIUM LEVEL 1.9 MG/DL (1.8-2.4); POTASSIUM SERUM 3.2 MEQ/L (3.5-5.1); SODIUM LEVEL 140 MEQ/L (136-145); TOTAL PROTEIN 5.8 GM/DL (6.4-8.2)
[2016-07-30 06:59] LABS: ANISOCYTOSIS 2+; MICROCYTOSIS 2+
[2016-07-30 07:00] LABS: HYPOCHROMASIA 1+
[2016-07-30] MEDS: ADVAIR DISKUS 250/50 INH PWD INH SCH ×2 (09:02→20:15)
[2016-07-30] MEDS: TIOTROPIUM INHALER/CAPSULE (SPIRIVA) INH SCH (09:02)
[2016-07-30] MEDS: DOCUSATE SODIUM 100 MG CAP PO SCH ×2 (09:51→20:27)
[2016-07-30] MEDS: FERROUS SULFATE 325MG TAB PO SCH (09:51)
[2016-07-30] MEDS: predniSONE 20 MG TAB PO SCH (09:52)
[2016-07-30] MEDS: OMEPRAZOLE 20 MG CAP PO SCH (09:52)
[2016-07-30] MEDS: FUROSEMIDE 40 MG TAB PO SCH (09:52)
[2016-07-30] MEDS: ENOXAPARIN 40 MG/0.4 ML SYRINGE (J1650) SC SCH (09:53)
[2016-07-30] MEDS ORDERED: POTASSIUM CHLORIDE 10 MEQ SR TABLET PO ONE (12:30)
--- NOTE | 2016-07-30 12:49 | IPNPDOC ---
Text Note Date of Service The patient was seen on 07/30/16. NOTE Subjective: 80-year-old female seen and examined at bedside. Admits to fatigue. Denies fevers, chills, chest pain, abdominal pain, nausea, vomiting, diarrhea, constipation, rashes or lesions anywhere. Denies dizziness, headache, runny nose , sore throat, cough. Reports no acute events overnight. Objective: Vitals: T: 97.7 BP: 125/58 RR: 18 P: 67 O2 Saturation: 92% on 3 L nasal cannula General: Awake, alert, and oriented elderly female lying comfortably in bed. In no acute distress. HEENT: Head: [normocephalic, atraumatic]. Eyes: [sclera are nonicteric]. Nose : [No external lesions] lips intact. Neck: No thyromegaly. Respiratory: [clear to auscultation bilaterally with no wheezes, rales, or rhonchi.] Cardiovascular: RRR. Positive S1, S2. No murmurs appreciable. Distant heart sounds. Abdomen: [soft, nontender, nondistended, no hepatosplenomegaly appreciated. Bowel sounds present.] Extremities: no swelling in either lower extremity bilaterally] Neurological: No focal neurologic deficits appreciated bilaterally. Lymphatics: No cervical lymphadenopathy appreciated bilaterally. Integumentary: Very dry skin, but no rashes or lesions. Vascular: [pulses palpable and symmetrical in upper and lower extremities bilaterally] Laboratory data: Please see below. Potassium 3.2 today Bicarbonate level of 39. Total protein level V.8. Problem 2.8. Calcium level VIII.5. Hemoglobin of 9 and hematocrit 31.9. MCV of 74.3. RDW of 20.6. 1+ hypochromasia 2+ anisocytosis 2+ microcytosis. Microbiology: Urine culture has showed no growth. Blood cultures have shown no growth to date 72 hours. Imaging: No new imaging today. Assessment: 80-year-old female with a past medical history of COPD cold classification stage IV, hypertension, hypothyroidism, hypoxemia, GERD, chronic anemia, presents for acute respiratory failure due to COPD exacerbation. Plan: Acute on chronic COPD exacerbation: Continue oxygen therapy via 3 L nasal cannula and titrate oxygen to 90-92%. Continue prednisone 40 mg daily. Continue Spiriva 1 inhalation daily. Continue breathing treatments with DuoNeb routine every 6 hours and every 2 hours when necessary shortness of breath or wheezing. Continue Advair Diskus twice a day. Moderate pulmonary hypertension on echocardiogram: Appreciate pulmonary input. Hypokalemia: Potassium of 3.2 today we'll replace with 40 mEq of KCl. Continue to follow BMP daily. Hypertension: Controlled. No need for antihypertensive at this time. Hypothyroidism: Continue levothyroxine 0.075 mg every morning. GERD: Continue omeprazole 40 mg daily. Chronic anemia: Stable. Continue to monitor H&H via CBC daily. Continue home medications. DVT prophylaxis: Continue Lovenox 30 mg subcutaneous daily. My preceptor for this patient encounter was Dr. Cornell Holguin, and was physically present in the building during the encounter and was fully available. As needed , all aspects of the patient interview, examination, medical decision making process, and medical care plan development were reviewed and approved by the preceptor. Preceptor is aware and concurs with the plan as stated in the body of this note and will attest to such by his/her cosignature Evangelist GARCIA, I+O VSEvangelist, I+O Laboratory Tests 07/30/16 05:48 Calcium Level 8.5 L, Aspartate Amino Transf (AST/SGOT) 11 L, Alanine Aminotransferase (ALT/SGPT) 13, Alkaline Phosphatase 104, Total Bilirubin 0.4, Total Protein 5.8 L, Albumin 2.8 L, Red Blood Count 4.30, Mean Corpuscular Volume 74.3 L, Mean Corpuscular Hemoglobin 21.0 L, Mean Corpuscular Hemoglobin Concent 28.3 L, Red Cell Distribution Width 20.6 H, Neutrophils (%) (Auto) 71.6 H, Lymphocytes (%) (Auto) 20.6 L, Monocytes (%) (Auto) 3.5, Eosinophils (%) ( Auto) 3.1 H, Basophils (%) (Auto) 0.1, Neutrophils # (Auto) 4.7, Lymphocytes # ( Auto) 1.3 L, Monocytes # (Auto) 0.2, Eosinophils # (Auto) 0.2, Basophils # (Auto ) 0.0 Vital Signs Date Time Temp Pulse Resp B/P Pulse Ox O2 Delivery O2 Flow Rate FiO2 07/30/16 06:00 97.7 67 18 125/58 93 Nasal Cannula 3.0 07/26/16 12:00 35 I&O- Last 24 Hours up to 6 AM 07/30/16 06:00 Intake Total 1440 ml Output Total 1150 ml Balance 290 ml GME ATTESTATION GME ATTESTATION My preceptor for this patient encounter was Dr. Cornell Holguin, and was physically present in the building during the encounter and was fully available. As needed , all aspects of the patient interview, examination, medical decision making process, and medical care plan development were reviewed and approved by the preceptor. Preceptor is aware and concurs with the plan as stated in the body of this note and will attest to such by his/her cosignature. FEDERICA VILLAGOMEZ OGME-1 Jul 30, 2016 12:49
[2016-07-30 14:00] VITALS: BP 108/74
[2016-07-30 22:00] VITALS: BP 94/50
[2016-07-31] MEDS: ACETAMINOPHEN TAB 650MG DOSE (2X325MG) PO PRN ×2 (00:25→23:46)
[2016-07-31] MEDS: IPRATROPIUM 0.5MG/ALBUTEROL 2.5MG INH SOL UD 3ML (DUONEB)(J7620) NEB SCH ×4 (02:28→20:00)
[2016-07-31] MEDS: LEVOTHYROXINE 0.075 MG TAB (75 MCG) PO SCH (05:43)
[2016-07-31 06:00] VITALS: BP 116/55
[2016-07-31 06:03] LABS: BASO % 0.2 % (0.0-1.0); EOS # 0.2 K/mm3 (0.0-0.50); LARGE UNSTAINED CELL # 0.1 K/mm3 (0.0-0.4); LARGE UNSTAINED CELL % 1.1 % (0.0-4.0); LYMPH # 1.3 K/mm3 (1.5-4.5); LYMPH % 13.1 % (24.0-44.0); MEAN CORPUSCULAR HEMOGLOBIN 21.6 pg (27.0-33.0); MEAN CORPUSCULAR HGB CONC 28.8 g/dl (32.0-36.5); MONO # 0.4 K/mm3 (0.0-0.8); MONO % 4.5 % (0.0-5.0); NEUTROPHILS # 7.4 K/mm3 (1.8-7.7); PLATELET COUNT, AUTOMATED 188 k/mm3 (150-450); WHITE BLOOD COUNT 9.3 K/mm3 (4.0-10.0)
[2016-07-31 06:09] LABS: ADD MORPHOLOGY? YES
[2016-07-31 06:21] LABS: ALBUMIN 2.7 GM/DL (3.2-5.2); ALBUMIN/GLOBULIN RATIO 0.87 (1.00-1.93); ALKALINE PHOSPHATASE 110 U/L (45-117); ALT/SGPT 14 U/L (12-78); ANION GAP 6 MEQ/L (8-16); AST/SGOT 10 U/L (15-37); BILIRUBIN,TOTAL 0.4 MG/DL (0.2-1.0); BLOOD UREA NITROGEN 25 MG/DL (7-18); CALCIUM LEVEL 8.8 MG/DL (8.8-10.2); CARBON DIOXIDE LEVEL 37 MEQ/L (21-32); CHLORIDE LEVEL 97 MEQ/L (98-107); CREATININE FOR GFR 0.76 MG/DL (0.55-1.02); GLOMERULAR FILTRATION RATE > 60.0 (>32); GLUCOSE, FASTING 83 MG/DL (83-110); POTASSIUM SERUM 3.4 MEQ/L (3.5-5.1); SODIUM LEVEL 140 MEQ/L (136-145); TOTAL PROTEIN 5.8 GM/DL (6.4-8.2)
[2016-07-31 06:24] LABS: ANISOCYTOSIS 2+; HYPOCHROMASIA 3+; MICROCYTOSIS 3+; OVALOCYTES 1+
[2016-07-31] MEDS: TIOTROPIUM INHALER/CAPSULE (SPIRIVA) INH SCH (08:19)
[2016-07-31] MEDS: ADVAIR DISKUS 250/50 INH PWD INH SCH ×2 (08:19→20:29)
[2016-07-31] MEDS: OMEPRAZOLE 20 MG CAP PO SCH (09:37)
[2016-07-31] MEDS: FERROUS SULFATE 325MG TAB PO SCH (09:37)
[2016-07-31] MEDS: predniSONE 20 MG TAB PO SCH (09:37)
[2016-07-31] MEDS: DOCUSATE SODIUM 100 MG CAP PO SCH ×2 (09:37→21:01)
[2016-07-31] MEDS: ENOXAPARIN 40 MG/0.4 ML SYRINGE (J1650) SC SCH (09:38)
[2016-07-31] MEDS: FUROSEMIDE 40 MG TAB PO SCH (09:38)
[2016-07-31 09:39] VITALS: BP 112/53
--- NOTE | 2016-07-31 11:27 | IPNPDOC ---
Subjective Date Seen The patient was seen on 07/31/16. Subjective Chief Complaint/HPI The patient is a 80-year-old female admitted with a reason for visit of Chronic Respiratory Failure; Copd. Assessment /Plan Problems (1) Chronic respiratory failure Status: Chronic Discussed With: Patient Problem Specific Plan: Monitor Clinically Problem Text: Stable at her baseline 3L supplemental oxygen. Secondary to COPD exacerbation - prednisone taper. (2) COPD (chronic obstructive pulmonary disease) Status: Chronic Discussed With: Patient Problem Specific Plan: Monitor Clinically Problem Text: Supplemental oxygen to 88-92% O2 sats. Respiratory treatments. (3) HTN (hypertension) Status: Chronic Problem Text: Lasix, modified diet. (4) Hypothyroidism Status: Chronic Discussed With: Patient Problem Specific Plan: Monitor Clinically Problem Text: Synthroid. (5) Anemia Status: Chronic Discussed With: Patient Problem Specific Plan: Monitor Clinically, Repeat Labs Problem Text: Stable, continue oral iron supplementation. (6) Acute on chronic respiratory failure with hypoxia and hypercapnia Status: Chronic Discussed With: Patient Problem Specific Plan: Consult Specialist, Monitor Clinically Problem Text: Pulmonology consultation appreciated. Plan/VTE VTE Prophylaxis Ordered?: Yes Plan/Urinary Catheter Urinary Catheter: D/C Roberts Plan Diet: Continue Current Activity: Continue Current Therapy: PT Medications: Taper Steroids Anticipated Discharge: Home With Services, Sub Acute Rehab Disposition Pending further eval/treatment by PT. DC home/home with service vs sub acute rehab. VS, I&O[facility] Vital Signs/I&O Vital Signs Date Time Temp Pulse Resp B/P Pulse Ox O2 Delivery O2 Flow Rate FiO2 07/31/16 09:39 112/53 07/31/16 06:00 98.7 79 18 98 Nasal Cannula 3.0 07/26/16 12:00 35 I&O- Last 24 Hours up to 6 AM 07/31/16 05:59 Intake Total 690 ml Output Total 1200 ml Balance -510 ml Laboratory Data 24H LABS Laboratory Tests 2 07/31/16 05:40: Blood Urea Nitrogen 25H, Creatinine 0.76, Sodium Level 140, Potassium Level 3.4L , Chloride Level 97L, Carbon Dioxide Level 37H, Calcium Level 8.8, Aspartate Amino Transf (AST/SGOT) 10L, Alanine Aminotransferase (ALT/SGPT) 14, Alkaline Phosphatase 110, Total Bilirubin 0.4, Total Protein 5.8L, Albumin 2.7L, Albumin/ Globulin Ratio 0.87L, Anion Gap 6L, Anisocytosis 2+, White Blood Count 9.3, Red Blood Count 4.10, Hemoglobin 8.9L, Hematocrit 30.8L, Mean Corpuscular Volume 75.0L, Mean Corpuscular Hemoglobin 21.6L, Mean Corpuscular Hemoglobin Concent 28.8L, Red Cell Distribution Width 21.0H, Platelet Count 188, Neutrophils (%) ( Auto) 79.0H, Lymphocytes (%) (Auto) 13.1L, Monocytes (%) (Auto) 4.5, Eosinophils (%) (Auto) 2.0, Basophils (%) (Auto) 0.2, Neutrophils # (Auto) 7.4, Lymphocytes # (Auto) 1.3L, Monocytes # (Auto) 0.4, Eosinophils # (Auto) 0.2, Basophils # (Auto) 0.0, Glomerular Filtration Rate > 60.0, Hypochromasia 3+, Large Unclassified Cells # 0.1, Large Unclassified Cells % 1.1, Magnesium Level 2.0, Microcytosis 3+, Ovalocytes 1+, Platelet Estimate NORMAL, Red Blood Cell Morphology NORMAL CBC/BMP Laboratory Tests 07/31/16 05:40 Calcium Level 8.8, Aspartate Amino Transf (AST/SGOT) 10 L, Alanine Aminotransferase (ALT/SGPT) 14, Alkaline Phosphatase 110, Total Bilirubin 0.4, Total Protein 5.8 L, Albumin 2.7 L, Red Blood Count 4.10, Mean Corpuscular Volume 75.0 L, Mean Corpuscular Hemoglobin 21.6 L, Mean Corpuscular Hemoglobin Concent 28.8 L, Red Cell Distribution Width 21.0 H, Neutrophils (%) (Auto) 79.0 H, Lymphocytes (%) (Auto) 13.1 L, Monocytes (%) (Auto) 4.5, Eosinophils (%) ( Auto) 2.0, Basophils (%) (Auto) 0.2, Neutrophils # (Auto) 7.4, Lymphocytes # ( Auto) 1.3 L, Monocytes # (Auto) 0.4, Eosinophils # (Auto) 0.2, Basophils # (Auto ) 0.0 Microbiology Microbiology 07/25/16 Blood Culture - Final, Complete NO GROWTH AFTER 5 DAYS 07/25/16 Urine Culture - Final, Complete MARI JUSTICE MD Jul 31, 2016 11:27
[2016-07-31 14:00] VITALS: BP 106/67
[2016-07-31] MEDS ORDERED: POTASSIUM CHLORIDE 10 MEQ SR TABLET PO ONE (20:15)
[2016-07-31 22:00] VITALS: BP 119/58
[2016-07-31] MEDS: ALPRAZolam 0.25 MG TAB PO PRN (23:45)
[2016-08-01] MEDS: IPRATROPIUM 0.5MG/ALBUTEROL 2.5MG INH SOL UD 3ML (DUONEB)(J7620) NEB SCH ×2 (01:34→08:00)
[2016-08-01] MEDS: ALPRAZolam 0.25 MG TAB PO PRN (05:09)
[2016-08-01] MEDS: LEVOTHYROXINE 0.075 MG TAB (75 MCG) PO SCH (05:09)
[2016-08-01] MEDS: ACETAMINOPHEN TAB 650MG DOSE (2X325MG) PO PRN (05:12)
[2016-08-01 06:00] VITALS: BP 115/59
[2016-08-01 07:35] LABS: ADD MORPHOLOGY? YES; BASO % 0.1 % (0.0-1.0); EOS # 0.2 K/mm3 (0.0-0.50); EOS % 1.9 % (0.0-3.0); LARGE UNSTAINED CELL # 0.1 K/mm3 (0.0-0.4); LARGE UNSTAINED CELL % 1.2 % (0.0-4.0); LYMPH # 1.5 K/mm3 (1.5-4.5); LYMPH % 13.6 % (24.0-44.0); MEAN CORPUSCULAR HEMOGLOBIN 21.8 pg (27.0-33.0); MEAN CORPUSCULAR HGB CONC 28.3 g/dl (32.0-36.5); MEAN CORPUSCULAR VOLUME 76.9 fl (80.0-96.0); MONO # 0.3 K/mm3 (0.0-0.8); MONO % 3.3 % (0.0-5.0); NEUTROPHILS # 7.9 K/mm3 (1.8-7.7); PLATELET COUNT, AUTOMATED 170 k/mm3 (150-450); RED CELL DISTRIBUTION WIDTH 21.3 % (11.5-14.5); WHITE BLOOD COUNT 9.8 K/mm3 (4.0-10.0)
[2016-08-01 07:57] LABS: MICROCYTOSIS 2+
[2016-08-01 07:58] LABS: HYPOCHROMASIA 3+
[2016-08-01 07:59] LABS: OVALOCYTES 1+
[2016-08-01 08:03] LABS: ALBUMIN 2.7 GM/DL (3.2-5.2); ALKALINE PHOSPHATASE 104 U/L (45-117); ALT/SGPT 18 U/L (12-78); ANION GAP 5 MEQ/L (8-16); AST/SGOT 9 U/L (15-37); BILIRUBIN,TOTAL 0.3 MG/DL (0.2-1.0); BLOOD UREA NITROGEN 20 MG/DL (7-18); CALCIUM LEVEL 8.6 MG/DL (8.8-10.2); CARBON DIOXIDE LEVEL 38 MEQ/L (21-32); CHLORIDE LEVEL 97 MEQ/L (98-107); CREATININE FOR GFR 0.72 MG/DL (0.55-1.02); GLOMERULAR FILTRATION RATE > 60.0 (>32); GLUCOSE, FASTING 83 MG/DL (83-110); MAGNESIUM LEVEL 1.8 MG/DL (1.8-2.4); POTASSIUM SERUM 3.7 MEQ/L (3.5-5.1); SODIUM LEVEL 140 MEQ/L (136-145); TOTAL PROTEIN 5.4 GM/DL (6.4-8.2)
[2016-08-01] MEDS: TIOTROPIUM INHALER/CAPSULE (SPIRIVA) INH SCH (08:41)
[2016-08-01] MEDS: ADVAIR DISKUS 250/50 INH PWD INH SCH (08:41)
[2016-08-01] MEDS ORDERED: PRED10PA2 PO (09:34)
[2016-08-01] MEDS ORDERED: ALPR0.25 PO (09:34)
[2016-08-01] MEDS ORDERED: ADV250INH INH (09:34)
[2016-08-01] MEDS ORDERED: TIOT18INH INH (09:34)
--- NOTE | 2016-08-01 09:46 | DS.PDOC ---
Discharge Summary General Date of Admission Jul 25, 2016 at 21:20 Date of Discharge 08/01/16 Specialist/Consultants Involve: Kiran LOPEZ MD Discharge Summary PROCEDURES PERFORMED DURING STAY: [None]. ADMITTING DIAGNOSES: 1. Acute/chronic hypoxic hypercapnic respiratory failure - temporarily requiring NIPPV 2. HTN 3. Anemia - iron deficiency 4. Hypothyroidism 5. COPD - GOLD IV 6. Nicotine addiction - 60+ pack year COMPLICATIONS/CHIEF COMPLAINT: Chronic Respiratory Failure; Copd. Hospital Course: 80 year old female with extensive smoking history and severe Gold IV COPD presents for shortness of breath. Found to be in acute hypoxic hypercapnic respiratory failure. Was started on NIPPV. Pulmonology consultation was place, NIPPV discontinued. Patient resumed her usual 3L supplemental oxygen as per her baseline. Acute episode deemed to be acute exacerbation of COPD. Patient noted with gait dysfunction, and generalized deconditioning. As such, discharged to [facility] for rehab. DISCHARGE MEDICATIONS: Please see below. ALLERGIES: Please see below. PHYSICAL EXAMINATION ON DISCHARGE: VITAL SIGNS: Please see below. GENERAL: NAD HEENT: NC/AT, EOMI, PERRL NECK: supple CARDIOVASCULAR EXAMINATION: +S1S2, RRR RESPIRATORY EXAMINATION: CTA B/L ABDOMINAL EXAMINATION: soft, NT, +BS EXTREMITIES: no edema PSYCHIATRIC EXAMINATION: AAOx3 LABORATORY DATA: Please see below. IMAGING: CXR - no acute pathology 2D echo - difficult/poor study, no CHF Technically difficult study. Mild concentric left ventricle hypertrophy with hyperkinetic wall motion. Moderately dilated left atrium with probable elevated mean left atrial pressure. At least mildly dilated right heart chambers with preserved systolic function. Suspected at least moderate pulmonary hypertension but could not substantiate this with Doppler. IVC upper limits of normal in size with absent respiratory collapse consistent with an elevated central venous pressure of at least 15 mmHg. Moderate aortic valvular sclerosis without stenosis but mild - moderate insufficiency. Fairly severe mitral annular calcification with mild stenosis and very mild insufficiency. PROGNOSIS: guarded, poor prognosis ACTIVITY: [As tolerated]. DIET: COPD, 2 gram sodium DISCHARGE PLAN: Discharge to [facility] for rehab. DISPOSITION: Poor/guarded prognosis DISCHARGE INSTRUCTIONS: 1. Medications as directed. 2. Stop smoking. 3. Follow up PCP 7-10 days. DISCHARGE CONDITION: [Stable]. TIME SPENT ON DISCHARGE: Greater than 30 minutes. Vital Signs/I&Os Vital Signs Date Time Temp Pulse Resp B/P Pulse Ox O2 Delivery O2 Flow Rate FiO2 08/01/16 06:00 96.9 69 17 115/59 96 Nasal Cannula 3.0 07/26/16 12:00 35 I&O- Last 24 Hours up to 6 AM 08/01/16 06:00 Intake Total 480 ml Output Total 1250 ml Balance -770 ml Laboratory Data Labs 24H Laboratory Tests 2 07/31/16 20:18: Bedside Glucose (Misc Panel) 133H 08/01/16 06:44: Blood Urea Nitrogen 20H, Creatinine 0.72, Sodium Level 140, Potassium Level 3.7 , Chloride Level 97L, Carbon Dioxide Level 38H, Calcium Level 8.6L, Aspartate Amino Transf (AST/SGOT) 9L, Alanine Aminotransferase (ALT/SGPT) 18, Alkaline Phosphatase 104, Total Bilirubin 0.3, Total Protein 5.4L, Albumin 2.7L, Albumin/ Globulin Ratio 1.00, Anion Gap 5L, White Blood Count 9.8, Red Blood Count 3.98L , Hemoglobin 8.7L, Hematocrit 30.6L, Mean Corpuscular Volume 76.9L, Mean Corpuscular Hemoglobin 21.8L, Mean Corpuscular Hemoglobin Concent 28.3L, Red Cell Distribution Width 21.3H, Platelet Count 170, Neutrophils (%) (Auto) 80.0H , Lymphocytes (%) (Auto) 13.6L, Monocytes (%) (Auto) 3.3, Eosinophils (%) (Auto ) 1.9, Basophils (%) (Auto) 0.1, Neutrophils # (Auto) 7.9H, Lymphocytes # (Auto ) 1.5, Monocytes # (Auto) 0.3, Eosinophils # (Auto) 0.2, Basophils # (Auto) 0.0 , Glomerular Filtration Rate > 60.0, Hypochromasia 3+, Large Unclassified Cells # 0.1, Large Unclassified Cells % 1.2, Magnesium Level 1.8, Microcytosis 2+, Ovalocytes 1+, Platelet Estimate NORMAL CBC/BMP Laboratory Tests 08/01/16 06:44 Calcium Level 8.6 L, Aspartate Amino Transf (AST/SGOT) 9 L, Alanine Aminotransferase (ALT/SGPT) 18, Alkaline Phosphatase 104, Total Bilirubin 0.3, Total Protein 5.4 L, Albumin 2.7 L, Red Blood Count 3.98 L, Mean Corpuscular Volume 76.9 L, Mean Corpuscular Hemoglobin 21.8 L, Mean Corpuscular Hemoglobin Concent 28.3 L, Red Cell Distribution Width 21.3 H, Neutrophils (%) (Auto) 80.0 H, Lymphocytes (%) (Auto) 13.6 L, Monocytes (%) (Auto) 3.3, Eosinophils (%) ( Auto) 1.9, Basophils (%) (Auto) 0.1, Neutrophils # (Auto) 7.9 H, Lymphocytes # ( Auto) 1.5, Monocytes # (Auto) 0.3, Eosinophils # (Auto) 0.2, Basophils # (Auto) 0.0 FSBS Laboratory Tests Test 07/31/16 20:18 Range/Units Bedside Glucose (Misc Panel) 133 83-110 MG/DL Microbiology Microbiology 07/25/16 Blood Culture - Final, Complete NO GROWTH AFTER 5 DAYS 07/25/16 Urine Culture - Final, Complete Discharge Medications Scheduled Budesonide/Formoterol (Symbicort 160-4.5 Mcg/Act) 60 Puff/Inhaler Aers 2 PUFF INH BID (Reported) Docusate Sodium (Docusate Sodium) 100 Mg Cap 100 MG PO BID (Reported) Ferrous Sulfate (Ferrous Sulfate) 325 Mg Tab 325 MG PO DAILY (Reported) Furosemide (Furosemide) 40 Mg Tab 40 MG PO DAILY (Reported) Levothyroxine Sodium (Synthroid) 75 Mcg Tab 75 MCG PO QAM (Reported) Omeprazole (Omeprazole) 40 Mg Cap 40 MG PO DAILY (Reported) Prednisone (Prednisone) 10 Mg Tab 10 MG PO DAILY (Reported) PATIENT HAS 3 MORE DAYS ON CURRENT PRESCRIPTION Prednisone (Prednisone) 10 Mg Darryn 10 MG PO DAILY Salmeterol/Fluticasone (Advair Diskus 250-50 Mcg/Dose) 14 Puff/Inhaler Aerp 1 PUFF INH BID Tiotropium [place] Monohydrate (Spiriva Handihaler) 5 Inhalation/Inhaler Powd 1 INHALATION INH DAILY@08 Scheduled PRN Albuterol/Ipratropium (Ipratropium [place]/Albut 0.5-2.5 (3) mg/3Ml) 1 Samir Samir 1 SAMIR INH QID PRN PRN SOB/WHEEZING (Reported) Alprazolam (Alprazolam) 0.25 Mg Tab 0.25 MG PO Q4HP PRN PRN ANXIETY Ketoconazole (Ketoconazole) 1 Dose/15 Gm Cream 1 DOSE TOP BID PRN PRN ITCHING ( Reported) Allergies Coded Allergies: KEITH Inhibitors (Verified Allergy, Severe, angioedema, 09/15/15) Bupropion (Verified Allergy, Unknown, 08/13/12) MARI JUSTICE MD Aug 01, 2016 09:46
[2016-08-01] MEDS: predniSONE 20 MG TAB PO SCH (09:53)
[2016-08-01] MEDS: FUROSEMIDE 40 MG TAB PO SCH (09:54)
[2016-08-01] MEDS: OMEPRAZOLE 20 MG CAP PO SCH (09:54)
[2016-08-01] MEDS: FERROUS SULFATE 325MG TAB PO SCH (09:54)
[2016-08-01] MEDS: DOCUSATE SODIUM 100 MG CAP PO SCH (09:54)
[2016-08-01] MEDS: ENOXAPARIN 40 MG/0.4 ML SYRINGE (J1650) SC SCH (09:55)
[2016-08-01 09:57] VITALS: BP 120/53
== END 2016-08-01 14:17 | DRG 189 ==
LOC: EDBD 19:26 → M ED 20:44 → M ED INP 21:20 → M ICU 22:47 → M MSPAV 07-27 12:40
PROVIDERS: ADMIT Internal Medicine; ATTEND Internal Medicine
DX: J96.21 Acute and chronic respiratory failure with hypoxia (principal); J44.1 Chronic obstructive pulmonary disease with (acute) exacerbation; E87.4 Mixed disorder of acid-base balance; J96.22 Acute and chronic respiratory failure with hypercapnia; I10 Essential (primary) hypertension; I27.2 Other secondary pulmonary hypertension; K21.9 Gastro-esophageal reflux disease without esophagitis; E03.9 Hypothyroidism, unspecified; R26.9 Unspecified abnormalities of gait and mobility; I08.0 Rheumatic disorders of both mitral and aortic valves; E87.6 Hypokalemia; D50.9 Iron deficiency anemia, unspecified; F17.210 Nicotine dependence, cigarettes, uncomplicated; Z99.81 Dependence on supplemental oxygen; Z79.51 Long term (current) use of inhaled steroids; Z79.899 Other long term (current) drug therapy; Z88.8 Allergy status to other drugs, medicaments and biological substances

== ENCOUNTER → 2016-08-13 | Outpatient (REF) ==
[~2016-08-13] MED LIST changes: +ADV250INH INH; +ALPR0.25 PO; +DOCU100C PO; +KETO0.05 TOP; +PRED10PA2 PO; +TIOT18INH INH
[2016-08-13 15:12] LABS: ANION GAP 6 MEQ/L (8-16); BLOOD UREA NITROGEN 18 MG/DL (7-18); CALCIUM LEVEL 8.4 MG/DL (8.8-10.2); CARBON DIOXIDE LEVEL 40 MEQ/L (21-32); CHLORIDE LEVEL 94 MEQ/L (98-107); CREATININE FOR GFR 0.83 MG/DL (0.55-1.02); GLOMERULAR FILTRATION RATE > 60.0 (>32); GLUCOSE, FASTING 123 MG/DL (83-110); POTASSIUM SERUM 3.8 MEQ/L (3.5-5.1); SODIUM LEVEL 140 MEQ/L (136-145)
== END ==
LOC: SKLAB2 13:36
PROVIDERS: ATTEND Family Medicine
DX: J44.9 Chronic obstructive pulmonary disease, unspecified (principal)

== ENCOUNTER → 2016-09-28 | Outpatient (REF) | payer MEDICARE, OTHER ==
[~2016-09-28] MED LIST changes: -COLA100C PO; +COLA100C3 PO; +NICO7DIS2 TD; -NICO7DIS23 TD; +TRAM50TA2 PO
== END ==
LOC: M LAB REF 17:28
PROVIDERS: ATTEND Family Medicine
DX: D64.9 Anemia, unspecified (principal)

== ENCOUNTER → 2017-01-04 | Outpatient (REF) | payer MEDICARE, OTHER ==
[~2017-01-04] MED LIST changes: -COLA100C3 PO; +COLA100C5 PO; -DOCU100C PO; +DOCU100C16 PO; +FERR1TAB8 PO; -FERR325T PO; +KEFL500C17 PO; -KEFL500C7 PO; -LEVA750T PO; +LEVA750T7 PO; +PERC5TAB12 PO; -PERC5TAB6 PO; +PRED10TA2 PO; -VITA-130 PO; +VITA500T PO
== END ==
LOC: M LAB REF 17:43
PROVIDERS: ATTEND Family Medicine
DX: D64.9 Anemia, unspecified (principal)